=== PATIENT | male | born 1940 | race Caucasian/White ===

== ENCOUNTER 2024-07-08 10:19 | Emergency (ER) | payer OTHER, SELFPAY ==
[2024-07-08] VITALS (9 sets, daily range): BP systolic 123–172; BP diastolic 73–110
--- NOTE | 2024-07-08 10:30 | ED.GENMED ---
History of Present Illness
General
Chief Complaint: Change in Mental Status
Source: patient
Time Seen by Provider: 07/08/24 10:52
History of Present Illness
History of Present Illness:
83-year-old male who presents from [facility]. He fell on Tuesday and since then has been feeling sort of sluggish. The patient states he just is felt little bit confused. Patient denies chest pain. No headache. No shortness of breath. No
abdominal pain. No back pain. No pain is in extremities. No vision changes. Does not sense any motor weakness.
Past History
Past History
ED Past Medical History: Arrthythmia (Atrial fibrillation), CHF and HTN
Phy Exam
Physical Exam
Physical Exam:
CONSTITUTIONAL Patient alert and oriented to person, place. Well-appearing. Vital signs reviewed.
HEAD atraumatic, normocephalic.
EYES eyelids normal to inspection, Extraocular muscles intact, Conjunctiva normal, Sclera normal.
NECK normal range of motion, Trachea midline, no jugular venous distention.
RESPIRATORY CHEST No respiratory distress noted, Chest expansion equal, Bilateral breath sounds clear.
CARDIOVASCULAR irregularly irregular
ABDOMEN abdomen nontender, Bowel sounds normal. No distention.
UPPER EXTREMITY range of motion normal, Motor strength normal, no cyanosis, no edema.
LOWER EXTREMITY range of motion normal, Motor strength normal, no cyanosis, no edema.
NEURO Speech normal, No focal motor deficits, Cranial Nerves intact to screening exam.
SKIN skin warm, dry, and normal in color.
Course
Orders/Labs/Results
Orders:
Orders
07/08/24 10:28
EKG [Electrocardiogram (*1)] Urgent
Reason for Study: Fatigue / Weakness
EKG- Treatment ONCE
07/08/24 10:29
CT Head W/o Iv Contrast Urgent
Comment:
Reason For Exam: fall, change of mental since
07/08/24 10:31
Complete Blood Count/With Diff Urgent
Comprehensive Metabolic Panel Urgent
07/08/24 11:24
Prothrombin Time Urgent
07/08/24 12:01
Urinalysis Reflex To Culture Urgent
Date Specimen was Collected: 07/08/24
Time Specimen was Collected: 11:53
Abnormal Lab Results
07/08/24 07/08/24 07/08/24
10:31 11:24 12:01
RBC 3.22 L 10^6/uL
(4.70-6.10)
Hgb 10.5 L g/dL
(13.0-18.0)
Hct 32.2 L %
(39.0-52.0)
MCV 100.0 H fL
(80.0-94.0)
MCH 32.6 H pg
(27.0-31.0)
MCHC 32.6 L g/dL
(33.0-37.0)
Absolute Lymphs (auto) 0.9 L 10^3/uL
(1.2-3.4)
Absolute Monos (auto) 0.7 H 10^3/uL
(0.1-0.6)
Neutrophils % 76.0 H %
(42.2-75.2)
Lymphocytes % 11.9 L %
(20.5-51.1)
Monocytes % 9.7 H %
(1.7-9.3)
PT 43.1 H Sec
(11.4-14.6)
BUN 23 H mg/dl
(9-20)
Glucose 130 H mg/dl
(70-99)
Total Protein 6.2 L g/dl
(6.3-8.2)
Urine Ketones 1+ A
(Negative)
07/08/24 10:31
07/08/24 10:31
Vital Signs
Initial and Last Documented VS:
Initial Vital Signs
Temp Pulse Resp Pulse Ox
97.7 F 109 18 92
07/08/24 10:22 07/08/24 10:22 07/08/24 10:22 07/08/24 10:22
Last Documented Vital Signs
Temp Pulse Resp BP Pulse Ox
97.7 F 105 16 152/98 98
07/08/24 10:22 07/08/24 10:27 07/08/24 10:27 07/08/24 10:29 07/08/24 10:27
MDM/Problems Addressed
MDM/Problems Addressed:
Change mental status, recent fall, supratherapeutic INR
*Radiology
Radiology exam reviewed: radiology read reviewed
*Pulse Oximetry
Patient hypoxic: no
*EKG
Interpreted by ED Provider?: Yes
Interpretation: abnormal
Rate: normal
Rhythm: a-fib
Ischemia: non-specific ST changes
*Business Analysis Specialist Interpretation
Rate: normal
Interpretation: abnormal
Rhythm: a-fib
*Critical Care Note
Total Time (30-74mins, 75-104mins- exclusive of procedures): Not Applicable
Data Reviewed
Source: patient
Patient Management
Escalation/DeEscalation of care consider admission/obs:
Patient offers no complaints other than feeling a little bit confused but is able to answer all questions. He is moving all extremities. INR is supratherapeutic. Will advise him to hold his Coumadin for 2 days and repeat INR on Tuesday. No UTI.
No intracranial hemorrhage. No focal motor deficits. The patient is sleeping but easily aroused. I do feel he is safe for discharge back to the facility for continued monitoring and follow-up with his doctor tomorrow
ED Attending Note
-
Portions of this chart may have been created with voice recognition software.� Occasional wrong word or��sound alike� substitutions may have occurred due to the inherent limitations of voice recognition software.
Discharge Plan
Departure
Patient Disposition: Home (Routine Discharge)
Date of Disposition: 07/08/24
Time of Disposition: 13:45
Patient with high blood pressure during this ER visit?: Yes
Discharge Problem:
Supratherapeutic INR, Acute alteration in mental status
Instructions: Altered Mental Status (DC), Prothrombin time and INR (PT/INR), BLOOD PRESSURE
Prescriptions:
No Action
sennosides [senna] 8.6 mg Tablet
17.2 mg PO HS
polyethylene glycol 3350 [Miralax] 17 gram Powder In Packet
17 g PO DAILYPRN PRN (Reason: constipation)
warfarin 5 mg tablet
5 mg PO MOWEFR
warfarin 5 mg tablet
7.5 mg PO SUTUTHSA
metoprolol succinate 25 mg tablet extended release 24 hr
25 mg PO HS
fludrocortisone 0.1 mg tablet
0.1 mg PO DAILY
midodrine 10 mg tablet
10 mg PO TID
dutasteride 0.5 mg capsule
0.5 mg PO DAILY
solifenacin 10 mg tablet
10 mg PO DAILY
Referrals:
John Naik MD [Family Provider] -
Activity Restrictions/Additional Instructions:
Please see your doctor tomorrow for follow-up. Please hold your and do not take it for today or tomorrow. Have your INR rechecked on Tuesday. In addition, please hold your midodrine until further advised by your doctor. Return immediately for
fevers, vomiting, changes in mentation, weakness of any kind or any other concerns
Interventions
Interventions:
*Risk Screen - Suicide Last Done: 07/08/24 10:26
*General Assessment Last Done: 07/08/24 10:26
*Neglect/Abuse Screening Last Done: 07/08/24 10:26
*ED COVID-19 Vaccine History Last Done: 07/08/24 10:26
ED- Pulmonary Assessment Last Done: 07/08/24 10:27
ED- Neurological Assessment Last Done: 07/08/24 10:27
Discharge Date and Time
Print Language: MALAWIAN
[2024-07-08 10:40] LABS: % Basophils 0.9 % (0-2); % Eosinophils 1.2 % (0-6); % Immature Granulocytes 0.3 % (0-0.5); % Lymphocytes 11.9 % (20.5-51.1); % Monocytes 9.7 % (1.7-9.3); Absolute Basophils 0.1 10^3/uL (0-0.2); Absolute Eosinophils 0.1 10^3/uL (0-0.7); Absolute Lymphocytes 0.9 10^3/uL (1.2-3.4); Absolute Monocytes 0.7 10^3/uL (0.1-0.6); Absolute Neutrophils 5.7 10^3/uL (1.4-6.5); Hematocrit 32.2 % (39.0-52.0); Hemoglobin 10.5 g/dL (13.0-18.0); Mean Corp Hgb Conc. 32.6 g/dL (33.0-37.0); Mean Corpuscular Hgb 32.6 pg (27.0-31.0); Mean Platelet Volume 9.7 fL (7.4-10.4); Nucleated Red Blood Cells % 0 % (-); Platelet Count 228 10^3/uL (130-400); Red Blood Cell Count 3.22 10^6/uL (4.70-6.10); Red Cell Dist. Width 13.2 % (11.5-14.5); White Blood Cell Count 7.5 10^3/uL (4.8-10.8)
[2024-07-08 11:12] LABS: ALT (SGPT) 22 U/L (0-50); AST (SGOT) 28 U/L (17-59); Albumin 3.6 g/dl (3.5-5.0); Alkaline Phosphatase 123 U/L (38-126); Blood Urea Nitrogen 23 mg/dl (9-20); Calcium 8.6 mg/dl (8.4-10.2); Carbon Dioxide 27 mmol/L (22-30); Chloride 103 mmol/L (98-107); Glucose 130 mg/dl (70-99); Potassium 3.6 mmol/L (3.5-5.1); Sodium 142 mmol/L (135-145); Total Bilirubin 1.3 mg/dl (0.2-1.3); Total Protein 6.2 g/dl (6.3-8.2); eGFR > 60.00
[2024-07-08 11:41] LABS: INR 4.53; PT 43.1 Sec (11.4-14.6)
[2024-07-08 12:13] LABS: Urine Albumin Negative (Neg - Trace); Urine Bilirubin Negative (Negative); Urine Character Clear (Clear); Urine Color Yellow; Urine Glucose Negative (Negative); Urine Ketone 1+ (Negative); Urine Leukocyte Negative (Negative); Urine Nitrite Negative (Negative); Urine Occult Blood Negative (Negative); Urine Urobilinogen Negative (Neg - 1+)
--- NOTE | 2024-07-08 14:21 | CM ---
CM was consulted to assist with transfer back to [facility]. Cm left message for nursing to discuss discharge planning.
--- NOTE | 2024-07-08 15:08 | CM ---
CM reviewed medical records. Andria lives in [place] at . ALIX spoke with TANNER Rosas at . will discuss level of care options with family on Tuesday. Ralph requested referral to [facility] to assist with further nursing
services and PT. ALIX sent referral via [facility].
CM updated ED doctor and bedside RN.
== END 2024-07-08 18:21 | disposition home or self-care (01) ==
LOC: EMR 10:19
PROVIDERS: EMERGENCY PHYSICIAN Emergency Medicine; FAMILY PHYSICIAN Internal Medicine
DX: R79.1 Abnormal coagulation profile (principal); R41.82 Altered mental status, unspecified; I11.0 Hypertensive heart disease with heart failure; I50.9 Heart failure, unspecified
CPT/HCPCS: 99285; 70450; 80053; 81003; 85025; 85610; 93005

== ENCOUNTER 2024-12-05 23:05 | Inpatient (IN) | payer OTHER, SELFPAY ==
[2024-12-05] VITALS (7 sets, daily range): BP systolic 117–160; BP diastolic 66–94; BMI 20.2
--- NOTE | 2024-12-05 20:41 | ED.GENMED ---
History of Present Illness
General
Chief Complaint: Breathing Problem
Source: patient and ambulance crew
Exam Limitations: none
Time Seen by Provider: 12/05/24 20:35
History of Present Illness
History of Present Illness:
See MDM
Past History
Past History
ED Past Medical History: Arrthythmia (Atrial fibrillation), CHF, COPD, CVA and HTN
Social History
Tobacco: Non-smoker
Alcohol: None
Phy Exam
Physical Exam
Physical Exam:
See MDM
Scores
Heart Failure Risk
Heart Failure Risk Score: Yes
History of Stroke or TIA: No
History of intubation for respiratory distress: Yes
Heart rate on ED arrival >/= 110: No
SaO2 <90% on arrival on room air: Yes
HR >/=110 during 3min walk test (or too ill to perform test): Yes
ECG has acute ischemic changes: No
Urea >/=12mmol/L (BUN 33.6mg/dL): Yes
Serum CO2>/=35mmol/L: No
Troponin I or T elevated to [place] Level (0.4mg/dL): No
NT-proBNP >/=5,000ng/L (5,000pg/ml): Yes
HF Risk Score: 7
Admission Status: VERY HIGH RISK 69.8% Consider admission to hospital
Course
Orders/Labs/Results
Orders:
Orders
12/05/24 20:39
Electrocardiogram (*1) Urgent
Reason for Study: Shortness of Breath
EKG- Treatment ONCE
Dexamethasone Sod Phosphate [Decadron] 10 mg IV NOW STA
Ipratropium/Albuterol Sulfate [Duoneb] 3 ml INH R NOW STA
CR Chest Portable - 1 View Urgent
Comment:
Reason For Exam: SOB, cough
Reason Study Needs to be Portable: Unable to Transport
12/05/24 20:58
COVID-19 Antigen Urgent
Source: Nasal Swab
Complete Blood Count/With Diff Urgent
Comprehensive Metabolic Panel Urgent
NT-proBNP Urgent
Troponin I Urgent
Influenza A+B Rapid Molecular Urgent
IVONE Source: Nasal Swab
Specimen Description:
12/05/24 21:52
Piperacillin/Tazo 3.375 Gram [Zosyn] 3.375 gram in 50 ml IV NOW
12/05/24 21:53
Furosemide [Lasix] 20 mg IV NOW STA
12/05/24 22:04
Vancomycin [Vancocin] 1,500 mg 0.9% Sodium Chloride 500 ml [Nss] 500 ml IV NOW
12/05/24 22:33
CT Head W/o Iv Contrast Stat
Comment:
Reason For Exam: change in mental status
12/05/24 22:35
Admit/Transfer Patient As Directed
Co-Sign Provider:
Level of Care: Inpatient admission
Assign to:: ICU
Physician / Group: Htay
Diagnosis: Sepsis, Pneumonia
Reason for Hospitalization: IV abx, Nebs, Steroids, Oxygen
Expected length of stay greater than two midnights?: Yes
ELOS- Estimated Length of Stay in days: 3
I certify the patient meets the requirements for IP care: Yes
PRN Pain Medication Management As Directed
May give lesser potent ordered pain med per pt: Yes
preference::
Protocol:: Medication orders for pain may be administered in a
manner that supports deferring to patient preference
when the pt is:
- Requesting an ordered lesser potent pain medication.
Least to most potent pain medications are defined
as: acetaminophen < NSAID < tramadol < opioids
(morphine, oxycodone, hydromorphone).
- Requesting a lesser dose of the same medication IF
ORDERED.
- Requesting a less intrusive route of administration
if both routes are prescribed by the provider (PO <
IV).
12/05/24 22:37
Code Status As Directed
Resuscitation Status: Full Code
12/05/24 22:45
Lactic Acid Urgent
Procalcitonin Urgent
PCT Algorithmm Indication: Sepsis
Prothrombin Time Urgent
PRN Pain Medication Management As Directed
May give lesser potent ordered pain med per pt: Yes
preference::
Protocol:: Medication orders for pain may be administered in a
manner that supports deferring to patient preference
when the pt is:
- Requesting an ordered lesser potent pain medication.
Least to most potent pain medications are defined
as: acetaminophen < NSAID < tramadol < opioids
(morphine, oxycodone, hydromorphone).
- Requesting a lesser dose of the same medication IF
ORDERED.
- Requesting a less intrusive route of administration
if both routes are prescribed by the provider (PO <
IV).
12/05/24 23:09
Arterial Blood Gas Urgent
%Oxygen/Room Air: 2
Abnormal Lab Results
12/05/24 12/05/24
20:58 22:45
RBC 3.95 L 10^6/uL
(4.70-6.10)
Hgb 12.5 L g/dL
(13.0-18.0)
MCV 100.8 H fL
(80.0-94.0)
MCH 31.6 H pg
(27.0-31.0)
MCHC 31.4 L g/dL
(33.0-37.0)
Abs Immat Gran (auto) 0.1 H 10^3/uL
(0-0.05)
Absolute Neuts (auto) 7.7 H 10^3/uL
(1.4-6.5)
Absolute Lymphs (auto) 0.6 L 10^3/uL
(1.2-3.4)
Absolute Monos (auto) 1.0 H 10^3/uL
(0.1-0.6)
Neutrophils % 82.3 H %
(42.2-75.2)
Lymphocytes % 6.6 L %
(20.5-51.1)
Monocytes % 10.2 H %
(1.7-9.3)
PT 50.0 H Sec
(11.4-14.6)
INR 5.52 H*
BUN 34 H mg/dl
(9-20)
Glucose 194 H mg/dl
(70-99)
12/05/24 20:58
12/05/24 20:58
Vital Signs
Initial and Last Documented VS:
Initial Vital Signs
Temp Pulse Resp BP Pulse Ox
98.0 F 105 34 156/88 93
12/05/24 20:28 12/05/24 20:28 12/05/24 20:28 12/05/24 20:28 12/05/24 20:28
Last Documented Vital Signs
Temp Pulse Resp BP Pulse Ox
100.3 F 91 25 149/94 92
12/05/24 22:20 12/05/24 22:30 12/05/24 22:30 12/05/24 22:30 12/05/24 22:30
MDM/Problems Addressed
Differential Diagnosis Includes:
HPI and MDM Narrative:
84-year-old male presenting with worsening shortness of breath. Per EMS, he has a history of COPD and CHF. They provided DuoNeb on arrival. Patient with a wet sounding cough. He does have diffuse expiratory wheezing. I noticed +1 pitting edema
bilateral lower extremities. I question whether or not he takes water pills. Patient states 'not anymore'.
Given his history, will give another DuoNeb and will start IV steroids. Will obtain chest x-ray obtain cardiac testing in regards to EKG, troponin and BNP
Physical exam
General: Weak, frail, intermittently coughing
HEENT: protecting airway
Neck: appears supple
CV: No evidence of cyanosis. mild tachycardia
Resp: No accessory muscle use. Rhonchorous breath sounds with expiratory wheezing
Abd: Non-distended
Extremities: +1 pitting edema bilateral lower extremities with evidence of venous stasis
Neuro: alert
Psych: Normal affect
Skin: Intact
Problems Addressed including Acute and Chronic Conditions affecting care:
1. Shortness of breath and cough
Acuity: acute
Prognosis: stable
Details: Will continue DuoNebs with concern for COPD. Will obtain chest x-ray and cardiac testing with concern for pneumonia versus CHF
Updates
Chest x-ray concerning for right lower lobe pneumonia. Will start IV antibiotics however, I do appreciate increased cephalization of the chest x-ray. Patient becoming hypoxic requiring 2 L nasal cannula. this in addition to mild hypoxia and
bilateral leg pitting edema, will give low-dose IV Lasix
11:20 PM throughout his stay in the emergency department, his mental status is worsening. He is having trouble protecting his airway. Medicine admitting team did relay they are concerned that the patient may require intubation. I do agree. I
discussed case with daughter Chanda who acknowledges my concern and is comfortable with intubation
11:[address] back from CT scan, patient now awake and alert. I updated the daughter and there is no need for intubation at this time
Differential Diagnosis (but not limited to): COPD exacerbation, pneumonia, viral syndrome, CHF exacerbation
Testing considered: D-dimer
Drug therapy (if applicable): OTC meds, please see d/c instruction regarding Rx drugs
Amount and/or Complexity of Data Reviewed
Clinical info obtained from: Patient
External data reviewed: N/A
Labs I independently reviewed (but not limited to): Elevated BNP
Radiology: X-ray independently reviewed: Chest x-ray concerning for right lower lobe pneumonia
Pulse Ox: hypoxic
EKG independently reviewed: A-fib, normal axis, no STEMI
Optometry Teacher: A-fib
Critical Care: The high probability of a clinically significant, sudden or life threatening deterioration of the cardiopulmonary system(s) required my full and direct attention, intervention and personal management. The aggregate critical care time
was 33 minutes. This time is in addition to time spent performing reported procedures but includes the following:
[x] Data Review and interpretation
[x] Patient assessment and monitoring of vital signs
[x] Documentation
[x] Medication orders and management
Risk of Complication:
Social Determinants of health: Good social support
Discussed with other providers: Hospitalist
Escalation of Care includes Admit/Obs: Given the concern of pneumonia and CHF exacerbation with hypoxia, will start IV antibiotics and Lasix and admit
Occasional wrong word or 'sound a like' substitutions may have occurred due to the inherent limitations of voice recognition software. Read the chart carefully and recognize, using context, where substitutions have occurred.
*Critical Care Note
Total Time (30-74mins, 75-104mins- exclusive of procedures): 33 min
ED Attending Note
-
Portions of this chart may have been created with voice recognition software.� Occasional wrong word or��sound alike� substitutions may have occurred due to the inherent limitations of voice recognition software.
Discharge Plan
Departure
Patient Disposition: Admit
Date of Disposition: 12/05/24
Time of Disposition: 21:55
Admit to: Telemetry
Presentation/result/management discussed w/ accepting MD/DO: Hospitalist
Discharge Problem:
PNA (pneumonia), Acute CHF, Hypoxia
Interventions
Interventions:
*General Assessment Last Done: 12/05/24 20:34
*ED COVID-19 Vaccine History Last Done: 12/05/24 20:34
ED- Cardiac Assessment Last Done: 12/05/24 20:35
ED- Pulmonary Assessment Last Done: 12/05/24 20:35
[2024-12-05] MEDS: DUONEB 3 ML INH (20:48)
[2024-12-05] MEDS: DECADRON 10 MG IV (20:53)
[2024-12-05 21:07] LABS: % Basophils 0.3 % (0-2); % Eosinophils 0.1 % (0-6); % Immature Granulocytes 0.5 % (0-0.5); % Lymphocytes 6.6 % (20.5-51.1); % Monocytes 10.2 % (1.7-9.3); % Neutrophils 82.3 % (42.2-75.2); Absolute Immature Granulocytes 0.1 10^3/uL (0-0.05); Absolute Lymphocytes 0.6 10^3/uL (1.2-3.4); Absolute Neutrophils 7.7 10^3/uL (1.4-6.5); Hematocrit 39.8 % (39.0-52.0); Hemoglobin 12.5 g/dL (13.0-18.0); Mean Corp Hgb Conc. 31.4 g/dL (33.0-37.0); Mean Corpuscular Hgb 31.6 pg (27.0-31.0); Mean Corpuscular Volume 100.8 fL (80.0-94.0); Mean Platelet Volume 9.9 fL (7.4-10.4); Nucleated Red Blood Cells % 0 % (-); Platelet Count 162 10^3/uL (130-400); Red Blood Cell Count 3.95 10^6/uL (4.70-6.10); Red Cell Dist. Width 13.4 % (11.5-14.5); White Blood Cell Count 9.4 10^3/uL (4.8-10.8)
[2024-12-05 21:25] LABS: ALT (SGPT) 25 U/L (0-50); AST (SGOT) 32 U/L (17-59); Albumin 3.8 g/dl (3.5-5.0); Alkaline Phosphatase 120 U/L (38-126); Blood Urea Nitrogen 34 mg/dl (9-20); Calcium 8.6 mg/dl (8.4-10.2); Carbon Dioxide 29 mmol/L (22-30); Chloride 99 mmol/L (98-107); Estimated Creatinine Clearance 66 ml/min; Glucose 194 mg/dl (70-99); Potassium 4.2 mmol/L (3.5-5.1); Sodium 136 mmol/L (135-145); Total Bilirubin 1.1 mg/dl (0.2-1.3); Total Protein 6.7 g/dl (6.3-8.2); eGFR > 60.00
[2024-12-05 21:33] LABS: NT-proBNP 6250 pg/ml; Troponin I < 0.012 ng/ml
[2024-12-05 21:38] LABS: COVID-19 Antigen Negative (Negative)
[2024-12-05] MEDS: LASIX 20 MG IV (22:08)
[2024-12-05] MEDS: ZOSYN 50 IV (22:12)
--- NOTE | 2024-12-05 22:12 | HPS.HSE ---
Addendum entered and electronically signed by Sumit Roca MD 12/06/24 00:03:
I saw and examined the patient.
The BATTERY SERVICE TECHNICIAN or PA's note was reviewed and I agree with the note.
Comment:
84M.[facility] no prior [facility] admission HX CHF, COPD, CVA , Perm AF on Warfarin� a/w multifactorial lethargic�TME,��acute CHF type unknown. ECHO in�AM.���Not hypercapnic on ABG.�Over�therapeutic INR @ 5. NEG HCT.� No active�bleeding. Hold�warfarin.�IV
Lasix 40 daily to be continued. Empiric IV Decadron and Nebs.� Unremarkable PCT.�Hold off further ABx. NEG HCT.� Full code.�ICU. DCA�card� and��Civil Engineering Specialist consult.�
Original Note:
Family Physician
-
Family Physician: John Naik MD
Chief Complaint
-
Cough and Shortness of Breath
History of Present Illness
Patient is an 84 y/o male past medical history of CHF, A-Fib, Orthostatic Hypotension, BPH and Prior Stroke who presents with cough and shortness of breath. Initially upon arrival to the ED patient was able to answer questions, but upon my
evaluation he is obtunded. Per ED documentation patient has been experiencing increasing shortness of breath for about a week, and cough for the last few days. Initially upon arrival patient was afebrile however temperature now has risen to
100.3F.
Medical History
Past Medical History
Past Medical History: Reports Other
Additional Past Medical History:
Combined Systolic/Diastolic Heart Failure
Permanent Atrial Fibrillation
Orthostatic Hypotension
Stroke
BPH
Past Surgical History: Reports Other
Additional Past Surgical History:
Hernia Repair
Social History
Unable to obtain full social history at this time due to: Acuity
Family History
Family History: Unable to Obtain
Allergies / Home Medications
Allergies reflects when Allergies were last updated in [employer].
Home Medications with original date entered in [employer]
Allergy/Medication List:
Allergies
Allergy/AdvReac Type Severity Reaction Status Date / Time
oxybutynin Allergy Unknown Verified 07/08/24 10:24
Home Medications
dutasteride 0.5 mg capsule 0.5 mg PO DAILY 07/08/24
fludrocortisone 0.1 mg tablet 0.1 mg PO DAILY 07/08/24
metoprolol succinate 25 mg tablet,extended release 24 hr 25 mg PO HS 07/08/24
polyethylene glycol 3350 17 gram oral powder packet (Miralax) 17 g PO DAILYPRN PRN constipation 07/08/24
sennosides 8.6 mg tablet (senna) 17.2 mg PO HS 07/08/24
solifenacin 10 mg tablet 10 mg PO DAILY 07/08/24
warfarin 5 mg tablet 5 mg PO SUMOWEFR@199907/08/24
warfarin 5 mg tablet 7.5 mg PO TUTHSA@199907/08/24
dextran 70-hypromellose (PF) 0.1 %-0.3 % eye drops in a dropperette (Artificial Tears (PF)) 2 drp BOTH EYES DAILY 12/05/24
melatonin 3 mg tablet 3 mg PO HS 12/05/24
Review of Systems
-
Unable to obtain full review of systems at this time due to: Acuity
Physical Exam
Vital Signs
Vital Signs
Temp Pulse Resp BP Pulse Ox
98.0 F 95 36 119/66 93
12/05/24 20:28 12/05/24 22:08 12/05/24 20:30 12/05/24 22:08 12/05/24 20:35
Physical Exam
General: Well Developed and Other (Appears acutely ill)
HEENT: NormoCephalic, Atraumatic and Oxygen (Nasal Cannula)
Respiratory: Rhonchi (Diffuse, Left greater than right)
Cardiac: S1/S2 and Irregular Rhythm; No Tachycardia
GI: Soft and Non Tender
Genito-urinary: Clear Urine (Obtained via straight cath) and Other (Nursing noted diaper to be foul smelling)
Musculoskeletal: No Clubbing, No Cyanosis and Other (+1 pitting edema bilateral lower extremity )
Skin: Warm and Dry
Neuro: Other (Obtunded and Unable to participate in Neurologic evaluation)
Laboratory Results
-
12/05/24 20:58
12/05/24 20:58
Laboratory Results
Total Bilirubin 1.1 mg/dl (0.2-1.3) 12/05/24 20:58
AST 32 U/L (17-59) 12/05/24 20:58
ALT 25 U/L (0-50) 12/05/24 20:58
Alkaline Phosphatase 120 U/L (38-126) 12/05/24 20:58
Troponin I < 0.012 ng/ml 12/05/24 20:58
Data Reviewed
-
Diagnostic Radiology: Report Reviewed by me
Lab Data: Labs Reviewed by me
Impression/Plan
-
Acute Hypoxic Respiratory Insufficiency, suspect mostly related to acute heart failure with possible pneumonia +/- COPD exacerbation
-Continue Lasix
-Continue Decadron
-Continue DuoNeb QID and PRN
-Continue Vancomycin and Zosyn
TME, suspect multi-factorial
-Monitor mental status closely
Acute Combined Systolic/Diastolic Heart Failure (per [place] paperwork)
-Consult Cardiology
-Continue Lasix
-Check Echo
-Monitor Is&Os and Daily Weights
Permanent Atrial Fibrillation
-INR is currently supratherapeutic - Hold Coumadin
-Continue Lopressor 5mg IV PRN until able to resume Toprol XL
Orthostatic Hypotension
-Hold fludrocortisone until able to resume oral meds
-Monitor blood pressure
BPH
-Hold dutasteride
-Monitor Bladder Scans
DVT proph: Coumadin
Code Status: Full Code
[2024-12-05] MEDS: VANCOCIN 530 MG IV (22:48)
[2024-12-05 23:08] LABS: Lactic Acid 1.3 mmol/L (0.7-2.0)
[2024-12-05 23:16] LABS: B.E. 6.2 mmol/L; HCO3 31.2 mmol/L (21-28); O2 Saturation % 95.9 % (94-98); PCO2 46 mmHg (35-48); PO2 67 mmHg (83-108); pH 7.44 (7.35-7.45)
[2024-12-05 23:20] LABS: INR 5.52
[2024-12-06] VITALS (14 sets, daily range): BP systolic 123–166; BP diastolic 65–109; BMI 20.2; BMI 19.0
[2024-12-06 00:25] LABS: Urine Albumin 2+ (Neg - Trace); Urine Bilirubin Negative (Negative); Urine Character Clear (Clear); Urine Color Yellow; Urine Glucose 2+ (Negative); Urine Ketone Negative (Negative); Urine Leukocyte Negative (Negative); Urine Nitrite Negative (Negative); Urine Occult Blood Negative (Negative); Urine Specific Gravity 1.015 (<1.030); Urine Urobilinogen Negative (Neg - 1+)
[2024-12-06 00:51] LABS: Glucose - Point of Care 210 mg/dl (70-99)
[2024-12-06] MEDS: NOVOLOG FLEXPEN-LOW RESISTANCE 2 UNITS SC ×2 (01:14→05:43)
--- NOTE | 2024-12-06 01:23 | PTCARENOTE ---
Received pt from ED RN, pt was pulled over to our bed. Pt is AAOx3 , VENETIE, drowsy @ times. Afib w/ PVCs on the monitor, LE edema +1. Pt on 2L NC O2 sat 95%, lungs wheezing/coarse. Incont x2, c/c #25 placed. Right hand #20 IV placed. Vanco gtt
infusing. SCDs in place. CHG bath provided. Safe environment maintained.
[2024-12-06 02:07] LABS: Urine Bacteria Few (Negative); Urine Red Blood Cell 0-2 /HPF (0-2); Urine Urothelial Cell 0-2 /LPF (FEW)
[2024-12-06] MEDS: ZOSYN 50 IV (04:15)
--- NOTE | 2024-12-06 04:22 | PTCARENOTE ---
Systems reviewed, pt AAOx2. Pt lethargic/drowsy, arousable. AM labs provided. Safe environment maintained.
[2024-12-06 04:46] LABS: Hematocrit 35.9 % (39.0-52.0); Hemoglobin 11.5 g/dL (13.0-18.0); Mean Corpuscular Hgb 31.9 pg (27.0-31.0); Mean Corpuscular Volume 99.4 fL (80.0-94.0); Mean Platelet Volume 10.7 fL (7.4-10.4); Platelet Count 150 10^3/uL (130-400); Red Blood Cell Count 3.61 10^6/uL (4.70-6.10); Red Cell Dist. Width 13.4 % (11.5-14.5)
[2024-12-06 04:51] LABS: PT 54.2 Sec (11.4-14.6)
[2024-12-06 05:01] LABS: INR 6.14
[2024-12-06 05:05] LABS: Blood Urea Nitrogen 27 mg/dl (9-20); Calcium 7.7 mg/dl (8.4-10.2); Carbon Dioxide 31 mmol/L (22-30); Chloride 100 mmol/L (98-107); Estimated Creatinine Clearance 71 ml/min; Glucose 221 mg/dl (70-99); Magnesium 1.9 mg/dl (1.6-2.3); Potassium 3.6 mmol/L (3.5-5.1); Sodium 138 mmol/L (135-145); eGFR > 60.00
[2024-12-06 05:54] LABS: Glucose - Point of Care 208 mg/dl (70-99)
[2024-12-06] MEDS: DUONEB 3 ML INH ×4 (07:08→19:25)
--- NOTE | 2024-12-06 07:17 | CON.INTV ---
Consultation
Consultation Request
Date/Time Consultation Requested: 12/06/24
Date/Time Consultation Performed: 12/06/24
Performing Provider: Bree
Reason for Consultation: ICU
Medical History
-
History of Present Illness:
Patient is a an 84-year-old male with previous history of congestive heart failure, COPD, CVA, A-fib on Coumadin presenting to ER with lethargy, change in mental status, shortness of breath. On arrival to the ER he was notably coughing with
expiratory wheezing, with +1 pitting edema. Chest x-ray demonstrating right lower lobe consolidation with increased cephalization, he is placed on 2 L nasal cannula. Admitted for heart failure exacerbation with possible pneumonia.
Past Medical History
Past Medical History: Other
Social History
Tobacco: Non-smoker
Alcohol: None
Drug: None
Allergies / Home Medications
Allergies
Allergy/AdvReac Type Severity Reaction Status Date / Time
oxybutynin Allergy Unknown Verified 07/08/24 10:24
Home Medications
�Medication �Instructions �Recorded �Confirmed �Last Taken �Type
dutasteride 0.5 mg capsule 0.5 mg PO DAILY 07/08/24 12/05/24 Unknown History
fludrocortisone 0.1 mg tablet 0.1 mg PO DAILY 07/08/24 12/05/24 Unknown History
metoprolol succinate 25 mg 25 mg PO HS 07/08/24 12/05/24 Unknown History
tablet,extended release 24 hr
polyethylene glycol 3350 17 gram 17 g PO DAILYPRN PRN constipation 07/08/24 12/05/24 Unknown History
oral powder packet (Miralax)
sennosides 8.6 mg tablet (senna) 17.2 mg PO HS 07/08/24 12/05/24 Unknown History
solifenacin 10 mg tablet 10 mg PO DAILY 07/08/24 12/05/24 Unknown History
warfarin 5 mg tablet 5 mg PO SUMOWEFR@2000 07/08/24 12/05/24 Unknown History
warfarin 5 mg tablet 7.5 mg PO TONYA@199907/08/24 12/05/24 Unknown History
dextran 70-hypromellose (PF) 0.1 2 drp BOTH EYES DAILY 12/05/24 12/05/24 Unknown History
%-0.3 % eye drops in a dropperette
(Artificial Tears (PF))
melatonin 3 mg tablet 3 mg PO HS 12/05/24 12/05/24 Unknown History
Review of Systems
-
History Source: Patient
All other systems: Negative unless noted
Vitals / Labs / Diagnostic Testing
Vital Signs
Temp Pulse Resp BP Pulse Ox
98.1 F 82 22 141/86 92
12/06/24 03:30 12/06/24 07:12 12/06/24 07:12 12/06/24 06:16 12/06/24 07:12
Lab Data
12/06/24 04:11
12/06/24 04:11
Laboratory Results
12/05/24 12/05/24 12/06/24
22:45 23:09 04:11
PT 50.0 H 54.2 H
INR 5.52 H* 6.14 H*
pH 7.44
pCO2 46
pO2 67 L
HCO3 31.2 H
O2 Delivery Level
Microbiology
12/05/24 20:58 Nasal Swab Influenza Types A & B (SHANNAN) - Final
Negative for Influenza A & B, NAAT
Negative results must be combined with clinical observations
and patient history.
Nucleic Acid Amplification test (NAAT)performed on the
[employer] platform.
Diagnostic Testing:
Physical Exam
-
HEENT: Normocephalic, Anicteric and Moist Mucous Membranes
Cardiovascular: S1/S2 and Regular Rhythm
Respiratory: Rales and Non-Labored Respirations
GI: Soft, Non Distended and Non Tender
Neurology: Awake, Alert, Oriented and No Motor Deficits
Skin: Warm, Dry and Good Color
General: Comfortable and Other (NAD)
Assessment
-
Patient is a an 84-year-old male with previous history of congestive heart failure, COPD, CVA, A-fib on Coumadin presenting to ER with lethargy, change in mental status, shortness of breath. On arrival to the ER he was notably coughing with
expiratory wheezing, with +1 pitting edema. Chest x-ray demonstrating right lower lobe consolidation with increased cephalization, he is placed on 2 L nasal cannula. Admitted for heart failure exacerbation with possible pneumonia.
Acute CHF exacerbation
R/o PNA, PCT negative
SOB
Acute hypoxic respiratory failure, not on home O2 at baseline
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
Combined Systolic/Diastolic Heart Failure
Permanent Atrial Fibrillation
Orthostatic Hypotension
Stroke
BPH
Hernia Repair
Plan
No current signs of metabolic encephalopathy or MS changes/following commands
Denies pain at this time.
Pain/sedation: PRN
RASS goals: 0
Hemodynamically stable, not requiring pressors.
Cardiac history reviewed--CHF, hypotension
No prior ECHO in past
Monitor on telemetry
Oxygen needs: on 2L NC, baseline use of non
Prior history of lung disease: none
Supplemental O2 as indicated to maintain sats > 89%
CXR/CT reviewed indicating congestion, cephalization consistent with CHF
PCT negative, unlikely PNA
Diet advancement per team
Case Management Associate recommendations
Aspiration precautions, HOB > 30 degrees
Speech therapy eval can be considered if at elevated risk
GI prophylaxis if indicated for mechanical ventilation >48 hours, prior history of GERD, stress ulcer formation in the critically ill
Creat at baseline, no history of renal disease
Void trials
Follow urine output, critical I/Os
Replete electrolytes as needed
No signs/symptoms suspicious for infectious etiology at this time
Observe off antibiotics for now
Follow fever trend, WBC count
CBC stable, no signs of bleeding or coagulopathy.
DVT prophylaxis as assessed based on risk, including mechanical SCDs
Can transfuse if indicated for Hb <7, plt < 10
No prior h/o diabetes or thyroid disease
Monitor accuchecks PRN/SS coverage if needed
Can transfer to floors as patient has no indication for ICU. We will sign off upon transfer.
Diagnostic Data
Chest X-Ray: 12/05/24- As described, radiographic findings highly suggestive of interstitial pulmonary edema pattern with associated small bilateral pleural effusions.
More focal patchy parenchymal opacity within the left lower lung, most likely atelectasis, although pneumonia is also possible.
CT Scan:
Echo:
PFT's:
Reports and relevant images were personally reviewed.
Critical Care time 51 mins -- The patient is admitted for acute critical illness for the treatment of vital organ failure and/or prevention of further life-threatening conditions. Total care includes time spent in review of history, physical exam,
medications, hemodynamic/ventilator parameters, laboratory data, imaging and discussion with house staff, pharmacy, respiratory therapy, leather sponger, and nursing.
[2024-12-06] MEDS: DECADRON 4 MG IV (08:09)
[2024-12-06] MEDS: LASIX 40 MG IV (08:10)
--- NOTE | 2024-12-06 08:38 | PHA.VAN.IN ---
Assessment
- Assessment
Renal Function: Appears similar to baseline
Concomitant Antimicrobials: piperacillin/tazobactam
AUC Dosing Plan
- Dosing Variables
Dosing Weight (kg): 65-80
Dosing CrCl (ml/min): 71
Vd coefficient (L/kg): 0.7
- Empiric Dosing
Initial / Loading Dose: 1500mg - 12/05 22:48
Maintenance Regimen: Vanc 750mg Q12H starting at 1800
Estimated AUC (mcg*h/mL): 436 - 537
Estimated Peak (mcg*h/mL): 25.2 - 31
Estimated Trough (mcg/ml): 12.5 - 15.4
Estimated Half Life (H): 10.9
- Monitoring
No levels ordered at this time: consider levels in next few days
Pharmacokinetics Vancomycin I
- -
Patient Age: 84
Patient Sex: Male
Vancomycin Day #: 1
Indication: Pulmonary/Respiratory
Requesting Provider: Sandoval Hauser
Pertinent Antimicrobial Allergies:
no pertinent antibiotic allergies
Height / Weight:
Height 6 ft 1 in
Actual Weight 65.4 kg
IBW in k
Pertinent Past Medical History: BMI ~19
- Vital Signs / Lab Results
Temp Pulse Resp BP Pulse Ox
98.3 F 82 22 141/86 92
12/06/24 08:00 12/06/24 07:12 12/06/24 07:12 12/06/24 06:16 12/06/24 07:12
Lab Results - Hematology
12/05/24 12/06/24
20:58 04:11
WBC 9.4 7.0
Lab Results - Chemistry
12/05/24 12/06/24
20:58 04:11
BUN 34 H 27 H
Creatinine 0.8 0.7
Estimated Creat Clear 66 71
Albumin 3.8
12/05/24
22:45
Lactic Acid 1.3
Lab Results - Urine
12/06/24
00:09
Urine Nitrite (Reflex) Negative
Leukocyte Esterase Rfl Negative
Urine WBC (Reflex) 3-5
Ur Squamous Epith Cells 3-5
Urine Bacteria (Reflex) Few A
Microbiology Results
12/05/24 20:58 Influenza Types A & B (SHANNAN) - Final
Nasal Swab Negative for Influenza A & B, NAAT
Negative results must be combined with clinical observations
and patient history.
Nucleic Acid Amplification test (NAAT)performed on the
[employer] platform.
--- NOTE | 2024-12-06 09:48 | W.PN.HOSP.TC ---
Addendum entered and electronically signed by Blake Borden MD 12/06/24 15:24:
BMI: 19.0 - sec to under weight
Original Note:
Today's Communication/Plan
-
Continue with IV Lasix
DC steroids and antibiotics
Check echocardiogram
Resume home medications once cleared by speech for oral intake.
Continue to hold Coumadin and follow INR
Assessment / Plan
Assessment / Plan
Shortness of breath
Patient was sent in because of shortness of breath and was noted to be hypoxic requiring oxygen.
Difficult historian because of his cognitive status currently. Unknown if he has underlying dementia but will follow-up with family.
Based on chest x-ray findings and BMP clinical concern is acute CHF decompensation. History of combined systolic/diastolic heart failure. skilled nursing paperwork. Patient known to have A-fib which is currently rate controlled.
Clinically not acting like pneumonia-no fevers. No white count. Not much of cough. Procalcitonin was normal. Hold antibiotics.
Clinical also also not acting like COPD flare. No visible cough. No active bronchospasm. Hold further steroids.
-Continue Lasix
-Continue DuoNeb d PRN
-Check echocardiogram
-Consult cardiology
TME, suspect multi-factorial
-Monitor mental status closely
-Patient today alert and oriented.
Permanent Atrial Fibrillation
-INR is currently supratherapeutic - Hold Coumadin
-Continue Toprol XL
Orthostatic Hypotension
-Hold fludrocortisone until able to resume oral meds
-Monitor blood pressure
BPH
-Hold dutasteride
-Monitor Bladder Scans
DVT proph: Coumadin
Code Status: Full Code
DW PHOTO CHECKER
Left msg to daughter on her voicemail
Transfer to tele
Total time spent on today's encounter was 52 minutes which included time spent in counseling the patient/family regarding diagnosis and treatment plan as listed above, goals of care, and symptom management. Case was discussed with nursing staff,
specialists, and care coordinators/case management. All labs and imaging personally reviewed by me. Remainder the time spent in detailed review of previous records, lab data, imaging, and other medical provider documentation.
Anticipated Discharge: > 48 hours
Subjective/Interval History
-
Date of Service: December 06, 2024
Patient is awake and alert and oriented to self only. Is very slow to respond but gets appropriate words out. He does not know where he is. He took a while for him to tell me his 's name.
He can tell me his current living situation either.
He denies shortness of breath at rest. He thinks he has some cough. Denies any chest pain or abdominal pain. No nausea vomiting.
Objective Data
-
Labs:
Laboratory Results
12/05/24 12/05/24 12/06/24
22:45 23:09 04:11
WBC 7.0
Hgb 11.5 L
Hct 35.9 L
Plt Count 150
PT 50.0 H 54.2 H
INR 5.52 H* 6.14 H*
HCO3 31.2 H
Sodium 138
Potassium 3.6
Chloride 100
Carbon Dioxide 31 H
BUN 27 H
Creatinine 0.7
Glucose 221 H
Calcium 7.7 L
Vital Signs:
Vital Signs
Temp Pulse Resp BP Pulse Ox
98.3 F 89 23 166/87 96
12/06/24 08:00 12/06/24 09:00 12/06/24 09:00 12/06/24 09:00 12/06/24 09:00
I&O
12/05/24 12/06/24 12/07/24
06:59 06:59 06:59
Intake Total 100 / 100
Output Total 850 / 850
Balance -750 / -750
Review of Systems
-
Unable to obtain full review of systems at this time due to: Other (Cognitive impairment)
Physical Exam
-
General: Comfortable
Respiratory: Crackles (Camp in the left lower lobe and few on the right base) and Non Labored Respirations; Negative Wheezes or Accessory Resp Muscle Use
Cardiac: S1/S2 and Irregular Rhythm; Negative Tachycardic
GI: Soft and Nontender
Neuro: Awake, Alert and No Motor Deficits; Negative Slurred Speech or Facial Droop
Psych: Calm and Confused; Negative Agitated
Data Reviewed
-
Labs: Labs Reviewed by me
--- NOTE | 2024-12-06 09:55 | CM ---
CM following re: discharge planning.
Reviewed pt's chart, met with pt and spoke to pt's daughter Chanda over the phone.
Pt is an 84 year old male, admitted with primary dx of Acute Hypoxic Respiratory Insufficiency, suspect mostly related to acute heart failure with possible pneumonia +/- COPD exacerbation.
Per daughter, pt has been living with his spouse at [facility]/personal care since May 2024, went to [facility] in April of 2024, has 2 supportive children. per daughter pt ambulates with a walker, uses a wheelchair for a long
distance: going to a dining room. Pt's daughter stated that pt has been falling in the past week and daughter feels that from emotional standpoint will be the best if pt returns back to [facility] to be with his spouse and at the same time pt's
daughter stated she would like the best and a safest options at discharge. Per daughter, pt is known to [facility] and pt's has a physical therapist almost daily.
CM spoke to [facility] TANNER Zavala [phone] and she stated that in order for pt to be accepted back, pt must be at his baseline: walking independently with a walker and using a wheelchair for a long distance.
PT and OT will evaluate the pt to determine a level of care at discharge.
PCP: John Naik.
Pharmacy: [facility]
D/C plan: return back to [facility] with [facility] vs SNF if recommended by PT and OT
CM will follow with discharge plan updates as hospitalization progresses
--- NOTE | 2024-12-06 10:24 | PTCARENOTE ---
patient written to telemetry status.
[2024-12-06 12:01] LABS: Glucose - Point of Care 216 mg/dl (70-99)
--- NOTE | 2024-12-06 12:25 | PTOTSP ---
Speech Language Pathology
Pt seen for clinical bedside swallow evaluation. Cognitive issues noted this AM by RN, so unsure if accurate, but pt reported he coughs with P.O. intake (can be either solids or liquids) once every 4-5 days. He thinks he may have had PNA twice in
the past, but does not believe he was hospitalized.
P.O. trials of puree, regular solids, and thin liquids via cup and straw provided. Adequate mastication, bolus formation, and A-P transit noted with no oral residue. Delayed cough noted with thin liquids via straw. No coughing noted with thin
liquids via single cup sips.
Recommend:
(1) Regular solids/thin liquids
(2) Aspiration precautions: sit upright, single cup sips (no straws), slow rate
(3) Meds whole in puree
(4) Will consider VSE if coughing specifically with P.O. intake noted
(5) TERMINAL WORKER to continue to follow
[2024-12-06] MEDS: NOVOLOG FLEXPEN-LOW RESISTANCE SC (13:11)
[2024-12-06] MEDS: PROSCAR 5 MG PO (13:55)
[2024-12-06] MEDS: FLORINEF 0.1 MG PO (13:55)
--- NOTE | 2024-12-06 14:39 | PTCARENOTE ---
Patient cleared by speech. ordered lunch for patient. aspiration precautions followed.
--- NOTE | 2024-12-06 14:42 | PN.CDI ---
CDI
- -
CDI:
Physician Documentation Request
Admit Date: 12/05/24 23:05
Dear Doctor Michi,
Please review the following and provide your response in the progress notes.
Clinical Indicators:
Height: 6' 1'
Weight: 144 lbs
BMI: 19.0
ER Physician Documentation: 'General: Weak, frail'
If possible, please provide an associated diagnosis related to the abnormal BMI, such as:
Cachectic
Underweight
BMI is not significant
Other
BMI < or = to 19.9
Underweight
Weight Loss
Cachectic
Anorexia
Use of terms such as suspected, likely, concern for, or probable (associated with a specific diagnosis that is being evaluated, monitored, or treated as if it exists) are acceptable and can be coded in the inpatient setting, when documented at the
time of discharge.
Thank you,
Bre Stratton RN, BSN
CDI Specialist
Available via [place] text
Please use your independent medical judgment in providing your response.
--- NOTE | 2024-12-06 17:34 | CON.CAR ---
Addendum entered and electronically signed by Francis Whiteside MD 12/06/24 17:53:
I saw and examined the patient.
The STRIP CLEANER's note was reviewed and I agree with the note.
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 Patient is forgetful and is a poor historian; he is unable to tell
us why he is here.
CXR showed interstitial edema concerning for HF and per notes had worsening SOB. He does not appear to overtly volume overloaded on exam and has RLL rales and rhonchi.
- agree with IV diuresis likely transition to PO after tomorrow AM dose
- follow tele may increase BB
Original Note:
Consultation
Consultation Request
Date/Time Consultation Requested: 12/06/24 0900
Date/Time Consultation Performed: 12/06/24 1730
Requesting Provider: Melyssa WAGONER
Performing Provider: Bertha ALEJANDRE for Dr. Whiteside
Reason for Consultation: CHF
Medical History
-
History of Present Illness:
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 Patient is forgetful, so poor historian. Per chart, he has had SOB and cough.
Temp in ER 100.3. He is being treated for PNA and CHF, as well as possible COPD. We are consulted for CHF. He is in no distress at the time of my assessment.
Past Medical History
Past Medical History: Arrhythmias, CHF, CVA and Other (as above)
Social History
Living: Assisted Living
Family History
Family History: Reviewed & Not Pertinent
Allergies / Home Medications
Allergy/AdvReac Type Severity Reaction Status Date / Time
oxybutynin Allergy Unknown Verified 07/08/24 10:24
�Medication �Instructions �Recorded �Confirmed �Type
dutasteride 0.5 mg capsule 0.5 mg PO DAILY 07/08/24 12/05/24 History
fludrocortisone 0.1 mg tablet 0.1 mg PO DAILY 07/08/24 12/05/24 History
metoprolol succinate 25 mg 25 mg PO HS 07/08/24 12/05/24 History
tablet,extended release 24 hr
polyethylene glycol 3350 17 gram 17 g PO DAILYPRN PRN constipation 07/08/24 12/05/24 History
oral powder packet (Miralax)
sennosides 8.6 mg tablet (senna) 17.2 mg PO HS 07/08/24 12/05/24 History
solifenacin 10 mg tablet 10 mg PO DAILY 07/08/24 12/05/24 History
warfarin 5 mg tablet 5 mg PO SUMOWEFR@199907/08/24 12/05/24 History
warfarin 5 mg tablet 7.5 mg PO TUTHSA@199907/08/24 12/05/24 History
dextran 70-hypromellose (PF) 0.1 2 drp BOTH EYES DAILY 12/05/24 12/05/24 History
%-0.3 % eye drops in a dropperette
(Artificial Tears (PF))
melatonin 3 mg tablet 3 mg PO HS 12/05/24 12/05/24 History
Review of Systems
-
History Source: Patient (forgetful) and Other (chart)
Respiratory: Cough and Trouble Breathing
Physical Exam
Vital Signs
Temp Pulse Resp BP Pulse Ox
98.0 F 90 29 140/96 94
12/06/24 15:19 12/06/24 15:12 12/06/24 15:12 12/06/24 13:00 12/06/24 15:12
Lab Results
12/06/24 04:11
12/06/24 04:11
Troponin I < 0.012 ng/ml 12/05/24 20:58
Hah-M-Iirfsuejxxk Pept 6250 pg/ml 12/05/24 20:58
Physical Exam
General: Well Developed, Well Nourished and No Apparent Distress
HEENT: Normocephalic and Anicteric
Respiratory: Rhonchi (right base) and Other (on O2 by NC)
Cardiac: Irregular Rhythm
Musculoskeletal: No Edema
Skin: Warm and Dry
Neuro: Awake, Alert and Other (forgetful)
Psych: Calm
Impression / Plan
-
Zslvq-bj-zmblthz HFpEF:
-unknown CHF history, but it is noted in chart. Not on OP diuretic.
-echo here with normal EF as below
-agree with IV diuresis, but he does not look like he will need too much more. This requires intensive monitoring.
Possible PNA:
-he has rhonchi to exam
-has received antibiotics, now stopped
Permanent AFIB:
-continue metoprolol and monitor rates
-on warfarin as OP, but INR high here- monitor closely
Orthostatic hypotension:
-on florinef as OP
Data Reviewed
-
EKG: Tracing Personally Visualized and interpreted
Radiology: Report Reviewed by me (CXR: As described, radiographic findings highly suggestive of interstitial pulmonary edema pattern with associated small bilateral pleural effusions. More focal patchy parenchymal opacity within the left lower
lung, most likely atelectasis, although pneumonia is also possible.)
Medical Tests (Nuc Med, Echo etc): Report Reviewed by me (Echo 12/06/24: Mild concentric left ventricular hypertrophy. EF 55-60%. Severely dilated right atrium. Small pericardial effusion. Pleural effusion noted. Mildly dilated aortic root with Sinus
of Valsalva measuring 3.9 cm. The IVC is severely dilated.)
Labs: Labs Reviewed by me
--- NOTE | 2024-12-06 18:48 | PTCARENOTE ---
moved patient to room 418 on telemetry. report given to Amee HART. Non par tray ordered.
[2024-12-06 19:09] LABS: Glucose - Point of Care 232 mg/dl (70-99)
[2024-12-06] MEDS: NOVOLOG FLEXPEN-LOW RESISTANCE 300 UNITS SC (19:09)
[2024-12-06] MEDS: TOPROL XL 25 MG PO (22:23)
[2024-12-06] MEDS: MELATONIN 3 MG PO (22:23)
[2024-12-06] MEDS: SENOKOT 17.2 MG PO (22:23)
[2024-12-07] VITALS (7 sets, daily range): BP systolic 76–141; BP diastolic 44–93; PULSE 92–113; BMI 18.4
[2024-12-07 00:14] LABS: Glucose - Point of Care 165 mg/dl (70-99)
[2024-12-07] MEDS: NOVOLOG FLEXPEN-LOW RESISTANCE 1 UNITS SC ×3 (00:17→22:59)
--- NOTE | 2024-12-07 03:59 | PTCARENOTE ---
Addendum entered by Ace Cardoza RN 12/07/24 04:01:
Accuchecks now ordered AC&HS.
Original Note:
Pt is now eating a cholesterol-lowering diet; accuchecks still ordered q6h. DELFINA Claudio notified, novolog sliding scale switched to AC. A1c ordered to be checked in the AM.
[2024-12-07 07:16] LABS: Glucose - Point of Care 138 mg/dl (70-99)
[2024-12-07] MEDS: NOVOLOG FLEXPEN-LOW RESISTANCE SC (07:27)
[2024-12-07] MEDS: DUONEB 3 ML INH ×4 (07:28→20:31)
[2024-12-07 07:59] LABS: PT 58.4 Sec (11.4-14.6)
[2024-12-07 08:04] LABS: INR 6.91
[2024-12-07 08:05] LABS: Hematocrit 39.2 % (39.0-52.0); Hemoglobin 12.5 g/dL (13.0-18.0); Mean Corp Hgb Conc. 31.9 g/dL (33.0-37.0); Mean Corpuscular Hgb 32.1 pg (27.0-31.0); Mean Corpuscular Volume 100.8 fL (80.0-94.0); Mean Platelet Volume 10.4 fL (7.4-10.4); Platelet Count 195 10^3/uL (130-400); Red Blood Cell Count 3.89 10^6/uL (4.70-6.10); Red Cell Dist. Width 13.2 % (11.5-14.5); White Blood Cell Count 9.8 10^3/uL (4.8-10.8)
[2024-12-07] MEDS: FLORINEF 0.1 MG PO (08:05)
[2024-12-07] MEDS: PROSCAR 5 MG PO (08:06)
[2024-12-07] MEDS: REFRESH EYE DROPS (PF) 2 DROPS BOTH EYES (08:06)
[2024-12-07] MEDS: LASIX 40 MG IV (08:06)
[2024-12-07] MEDS: DETROL LA 4 MG PO (08:06)
[2024-12-07 08:20] LABS: Blood Urea Nitrogen 33 mg/dl (9-20); Calcium 8.9 mg/dl (8.4-10.2); Carbon Dioxide 38 mmol/L (22-30); Chloride 95 mmol/L (98-107); Estimated Creatinine Clearance 60 ml/min; Glucose 145 mg/dl (70-99); Potassium 3.2 mmol/L (3.5-5.1); Sodium 140 mmol/L (135-145); eGFR > 60.00
--- NOTE | 2024-12-07 08:55 | W.PN.CD ---
Today's Communication / Plan
-
stop IV diuresis
Increase metop to 50
Impression / Plan
-
Jwtot-la-jdaoxcq HFpEF:
-unknown CHF history, but it is noted in chart. Not on OP diuretic.
-echo here with normal EF as below
-Stop IV diuresis
Possible PNA:
-he has rhonchi to exam
-has received antibiotics, now stopped
Permanent AFIB: uncontrolled
-Increase metop to 50
-on warfarin as OP, but INR high here- monitor closely
Orthostatic hypotension:
-on florinef as OP
Subjective: Confused this AM
Physical Exam
Vital Signs/Labs
Vital Signs
Temp Pulse Resp BP Pulse Ox
98.3 F 103 18 146/89 96
12/07/24 07:30 12/07/24 08:06 12/07/24 07:31 12/07/24 08:06 12/07/24 07:31
12/06/24 12/07/24 12/08/24
06:59 06:59 06:59
Actual Weight 144 lb 2.917 oz 139 lb 6.4 oz
12/07/24 07:06
12/07/24 07:06
PT 58.4 Sec (11.4-14.6) H 12/07/24 07:06
INR 6.91 H* 12/07/24 07:06
Magnesium 1.9 mg/dl (1.6-2.3) 12/06/24 04:11
12/05/24
20:58
Fjm-M-Rzaotpebsgr Pept 6250
LAB Results
12/05/24
20:58
Troponin I < 0.012
Physical Exam
Constitutional: No acute distress and Confusion
EENT: Anicteric
Cardiovascular: Pedal edema is absent and Rhythm/rate is irregular
Respiratory: Respiratory effort normal and Rhonchi Present
GI: Soft
Neuro/Psych: Oriented (oriented to person )
Data Reviewed
-
Date of Service: December 07, 2024
EKG: Tracing Personally Visualized and interpreted (af)
Echo: Tracing Personally Visualized and interpreted
Labs: Labs Reviewed by me
[2024-12-07 10:16] LABS: Glycohemoglobin (HgbA1c) 6.7 % (4.0-5.6)
--- NOTE | 2024-12-07 11:29 | W.PN.HOSP.TC ---
Today's Communication/Plan
-
Continue with IV Lasix
Reintroduce his fludrocortisone
Can continue with PT treatments
Continue to monitor INR.
Assessment / Plan
Assessment / Plan
Shortness of breath
Patient was sent in because of shortness of breath and was noted to be hypoxic requiring oxygen.
Based on chest x-ray findings and BNP clinical concern is acute CHF decompensation. 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 Patient known to have A-fib .
Clinically not acting like pneumonia-no fevers. No white count. Not much of cough. Procalcitonin was normal. Hold antibiotics.
Clinical also also not acting like COPD flare. No visible cough. No active bronchospasm. Hold further steroids.
-Continue Lasix.Improving wt and seems to be off of O2 this am
-Continue DuoNeb d PRN
- echocardiogram 12/06 shows a EF of 55 to 60%.
-Consult cardiology
TME, suspect multi-factorial
-Monitor mental status closely . Family feels he is at his baseline cognitively.
-Patient is alert and oriented.
Permanent Atrial Fibrillation
RVR this am
-INR is currently supratherapeutic - Hold Coumadin
-Continue Toprol XL - dose increased
Orthostatic Hypotension
-Resume fludrocortisone
-Monitor blood pressure
BPH
-Resume dutasteride
-Monitor Bladder Scans
DVT proph: Coumadin
Code Status: Full Code
DW daughter on phone and updated the clinicals ,dx,tx
DW Cards this am
Total time spent on today's encounter was 52 minutes which included time spent in counseling the patient/family regarding diagnosis and treatment plan as listed above, goals of care, and symptom management. Case was discussed with nursing staff,
specialists, and care coordinators/case management. All labs and imaging personally reviewed by me. Remainder the time spent in detailed review of previous records, lab data, imaging, and other medical provider documentation.
Anticipated Discharge: 24 - 48 hours
Subjective/Interval History
-
Date of Service: December 07, 2024
Patient feels improved. Denies shortness of breath at rest. Is off of oxygen this morning according to respiratory therapist. Denies any chest pain.
No nausea or vomiting.
Interval history-discussed with daughter today about his prehospital health situation-lives at assisted living along with her mother. Over the last 7 months there is some decline in general which she thinks may be aging. He was also having falls
recurrently. They noted orthostatic hypotension as an issue in the last 7 months and is on medication.
Objective Data
-
Labs:
Laboratory Results
12/07/24
07:06
WBC 9.8
Hgb 12.5 L
Hct 39.2
Plt Count 195 D
PT 58.4 H
INR 6.91 H*
Sodium 140
Potassium 3.2 L
Chloride 95 L
Carbon Dioxide 38 H
BUN 33 H
Creatinine 0.8
Glucose 145 H
Calcium 8.9
Vital Signs:
Vital Signs
Temp Pulse Resp BP Pulse Ox
98.3 F 90 18 146/89 95
12/07/24 07:30 12/07/24 10:47 12/07/24 10:47 12/07/24 08:06 12/07/24 10:47
I&O
12/06/24 12/07/24 12/08/24
06:59 06:59 06:59
Intake Total 100 / 100 240 / 240
Output Total 850 / 850 1949 / 1949 350 / 350
Balance -750 / -750 -1950 / -1950 -110 / -110
Review of Systems
-
Constitutional: Denies Fever
Respiratory: Denies Cough
Abdomen/GI: Denies Abdominal Pain, Nausea or Vomiting
Neuro: Denies Dizzy
Physical Exam
-
General: No Apparent Distress
HEENT: Moist Mucous Membranes
Respiratory: Crackles (bibasal) and Non Labored Respirations; Negative Accessory Resp Muscle Use
Cardiac: S1/S2, Irregular Rhythm and Tachycardic
GI: Soft and Nontender
Musculoskeletal: No Edema
Neuro: AO x 3
Psych: Calm
Data Reviewed
-
Labs: Labs Reviewed by me
[2024-12-07 12:40] LABS: Glucose - Point of Care 170 mg/dl (70-99)
--- NOTE | 2024-12-07 15:10 | CM ---
CM reviewed chart, placed call to daughter, Chanda, to discuss PT recommendations of SNF. Daughter inquiring if patient would be able to return to [place] with more therapy at facility rather than SNF, concerned for patient being away from who
resides at facility as well. Patient currently max assist x two, spoke with nurse Nessa at [facility], agree patient needs rehab and Nessa will call daughter to discuss. Patient was at [facility] in past, daughter reports patient did do well
there, will place referral in [facility]. CM will continue to follow for all discharge planning needs.
Plan; SNF referral placed, will need insurance auth
[2024-12-07 17:22] LABS: Glucose - Point of Care 229 mg/dl (70-99)
[2024-12-07] MEDS: NOVOLOG FLEXPEN-LOW RESISTANCE 2 UNITS SC (18:07)
[2024-12-07 21:22] LABS: Glucose - Point of Care 164 mg/dl (70-99)
[2024-12-07] MEDS: TOPROL XL 50 MG PO (22:58)
[2024-12-07] MEDS: SENOKOT 17.2 MG PO (22:58)
[2024-12-07] MEDS: MELATONIN 3 MG PO (22:59)
[2024-12-08 03:53] VITALS: BP 162/108
[2024-12-08 06:00] VITALS: BMI 17.5
[2024-12-08 07:15] VITALS: BP 137/91
[2024-12-08] MEDS: DUONEB 3 ML INH ×2 (07:26→11:38)
[2024-12-08 07:57] LABS: Glucose - Point of Care 140 mg/dl (70-99)
[2024-12-08] MEDS: NOVOLOG FLEXPEN-LOW RESISTANCE SC (08:11)
[2024-12-08] MEDS: FLORINEF 0.1 MG PO (08:56)
[2024-12-08] MEDS: REFRESH EYE DROPS (PF) 2 DROPS BOTH EYES (08:56)
[2024-12-08] MEDS: PROSCAR 5 MG PO (08:56)
[2024-12-08] MEDS: DETROL LA 4 MG PO (08:56)
[2024-12-08 09:58] LABS: INR 4.77; PT 44.1 Sec (11.4-14.6)
--- NOTE | 2024-12-08 10:14 | W.PN.CD ---
Today's Communication / Plan
-
Lasix 40 mg PRN for weight gain
Cont Metop 50
We will sign off he should follow up with his ice cutter in 2-4 weeks.
Impression / Plan
-
Lzygo-kb-erucgnd HFpEF:
-unknown CHF history, but it is noted in chart. Not on OP diuretic.
-echo here with normal EF as below
-Stop IV diuresis, Lasix 40 mg for 3-5 lb weight gain in a day or a week
Possible PNA:
-he has rhonchi to exam
-has received antibiotics, now stopped
Permanent AFIB: improved
-Cont metop to 50
-on warfarin as OP, but INR high here- monitor closely
Orthostatic hypotension:
-on florinef as OP
Subjective: Remains confused
Physical Exam
Vital Signs/Labs
Vital Signs
Temp Pulse Resp BP Pulse Ox
98.3 F 60 18 137/91 93
12/08/24 07:15 12/08/24 07:28 12/08/24 07:28 12/08/24 07:15 12/08/24 07:28
12/07/24 12/08/24 12/09/24
06:59 06:59 06:59
Actual Weight 139 lb 6.4 oz 132 lb 6 oz
12/07/24 07:06
PT 44.1 Sec (11.4-14.6) H 12/08/24 09:31
INR 4.77 D 12/08/24 09:31
Magnesium 1.9 mg/dl (1.6-2.3) 12/06/24 04:11
12/05/24
20:58
Vig-E-Jklsphtiwzg Pept 6250
LAB Results
12/05/24
20:58
Troponin I < 0.012
Physical Exam
Constitutional: No acute distress and Comfortable
EENT: Anicteric
Cardiovascular: Pedal edema is absent and Rhythm/rate is irregular
Respiratory: Respiratory effort normal
GI: Soft
Neuro/Psych: Alert (to name unsure of year or place)
Data Reviewed
-
Date of Service: December 08, 2024
EKG: Tracing Personally Visualized and interpreted (af)
Echo: Report Reviewed by me
Labs: Labs Reviewed by me
[2024-12-08 10:27] LABS: Blood Urea Nitrogen 33 mg/dl (9-20); Calcium 8.6 mg/dl (8.4-10.2); Chloride 95 mmol/L (98-107); Estimated Creatinine Clearance 57 ml/min; Glucose 142 mg/dl (70-99); Potassium 2.9 mmol/L (3.5-5.1); Sodium 141 mmol/L (135-145); eGFR > 60.00
[2024-12-08] MEDS: LASIX IV (10:50)
[2024-12-08 11:26] VITALS: BP 106/63
[2024-12-08 11:35] LABS: Glucose - Point of Care 323 mg/dl (70-99)
[2024-12-08 12:03] LABS: Glucose - Point of Care 307 mg/dl (70-99)
[2024-12-08 12:14] LABS: Carbon Dioxide 36 mmol/L (22-30)
[2024-12-08] MEDS: NOVOLOG FLEXPEN-LOW RESISTANCE 4 UNITS SC (12:17)
--- NOTE | 2024-12-08 13:30 | W.PN.HOSP.TC ---
Today's Communication/Plan
-
DC to rehab in a.m.
Assessment / Plan
Assessment / Plan
Shortness of breath
Patient was sent in because of shortness of breath and was noted to be hypoxic requiring oxygen.
Based on chest x-ray findings and BNP clinical concern is acute CHF decompensation. History of combined systolic/diastolic heart failure from [facility] paperwork. Patient known to have A-fib .
Clinically not acting like pneumonia-no fevers. No white count. Not much of cough. Procalcitonin was normal. Hold antibiotics.
Clinical also also not acting like COPD flare. No visible cough. No active bronchospasm. Hold further steroids.
-Significant improvement in weight and currently off of oxygen. Lasix schedule is on hold and use as needed for weight gain.
-Continue DuoNeb d PRN
- echocardiogram 12/06 shows a EF of 55 to 60%.
-Appreciate cardiology
Hypokalemia-replete
TME, suspect multi-factorial
-Monitor mental status closely . Family feels he is at his baseline cognitively.
-Patient is alert and oriented.
Permanent Atrial Fibrillation
RVR this am
-INR is currently supratherapeutic - Hold Coumadin
-Continue Toprol XL - dose increased
Orthostatic Hypotension
-Resumed fludrocortisone
-Monitor blood pressure
BPH
-Resumed dutasteride
-Monitor Bladder Scans
DVT proph: Coumadin
Code Status: Full Code
PT recommends rehab
DC planning
Anticipated Discharge: Within 24 hours
Subjective/Interval History
-
Date of Service: December 08, 2024
Denies shortness of breath or chest pain today.
He is alert and oriented to place and person.
Feels weak being in the bed.
Wishes to Return to his assisted living facility. lives as well in the same facility.
Objective Data
-
Labs:
Laboratory Results
12/08/24
09:31
PT 44.1 H
INR 4.77 D
Sodium 141
Potassium 2.9 L
Chloride 95 L
Carbon Dioxide 36 H
BUN 33 H
Creatinine 0.8
Glucose 142 H
Calcium 8.6
Vital Signs:
Vital Signs
Temp Pulse Resp BP Pulse Ox
98.5 F 64 18 106/63 96
12/08/24 11:26 12/08/24 11:40 12/08/24 11:40 12/08/24 11:26 12/08/24 11:40
I&O
12/07/24 12/08/24 12/09/24
06:59 06:59 06:59
Intake Total 960 / 960
Output Total 1949 650 / 650
Balance -1949 310 / 310
Review of Systems
-
Constitutional: Denies Fever
Respiratory: Denies Trouble Breathing
Cardiac: Denies Chest Pain or Palpitations
Abdomen/GI: Denies Abdominal Pain or Nausea
Neuro: Denies Dizzy
Physical Exam
-
General: Comfortable
Respiratory: Crackles (few basal crackles) and Non Labored Respirations; Negative Wheezes or Accessory Resp Muscle Use
Cardiac: Regular Rhythm and S1/S2
GI: Soft and Nontender
Musculoskeletal: No Edema
Neuro: Awake, Alert, Oriented (not to day month or year) and No Motor Deficits; Negative Tremors
Psych: Calm and Confused; Negative Agitated
Data Reviewed
-
Labs: Labs Reviewed by me
[2024-12-08] MEDS: KLOR-CON 40 MEQ PO ×2 (14:09→18:04)
--- NOTE | 2024-12-08 14:43 | CM ---
Per Attending, patient should be stable for discharge to SNF tomorrow
[facility] unable to accept patient; no beds available
CM spoke with patient's daughter via phone; she was agreeable to expanding SNF search; alternative options provided; preferences are [facility], [facility], and [facility]
Plan: Discharge to SNF pending bed availability and AUTH approval
[2024-12-08 15:17] VITALS: BP 91/55
[2024-12-08 16:34] LABS: Glucose - Point of Care 150 mg/dl (70-99)
[2024-12-08] MEDS: NOVOLOG FLEXPEN-LOW RESISTANCE 1 UNITS SC ×2 (18:04→22:26)
[2024-12-08 19:52] VITALS: BP 102/60
[2024-12-08] MEDS: LOPRESSOR 5 MG IV (19:55)
[2024-12-08 21:29] VITALS: BP 122/71
[2024-12-08] MEDS: TOPROL XL 50 MG PO (21:30)
[2024-12-08] MEDS: SENOKOT 17.2 MG PO (21:30)
[2024-12-08] MEDS: MELATONIN 3 MG PO (21:31)
[2024-12-08 21:43] LABS: Glucose - Point of Care 182 mg/dl (70-99)
[2024-12-09] VITALS (8 sets, daily range): BP systolic 96–154; BP diastolic 58–98; BMI 17.8
[2024-12-09 07:29] LABS: INR 3.81; PT 37.2 Sec (11.4-14.6)
[2024-12-09 07:54] LABS: Blood Urea Nitrogen 31 mg/dl (9-20); Calcium 8.4 mg/dl (8.4-10.2); Carbon Dioxide 39 mmol/L (22-30); Chloride 96 mmol/L (98-107); Estimated Creatinine Clearance 67 ml/min; Glucose 143 mg/dl (70-99); Potassium 3.8 mmol/L (3.5-5.1); Sodium 139 mmol/L (135-145); eGFR > 60.00
[2024-12-09 07:55] LABS: Glucose - Point of Care 134 mg/dl (70-99)
[2024-12-09] MEDS: NOVOLOG FLEXPEN-LOW RESISTANCE SC (08:40)
[2024-12-09] MEDS: DETROL LA 4 MG PO (08:47)
[2024-12-09] MEDS: FLORINEF 0.1 MG PO (08:47)
[2024-12-09] MEDS: REFRESH EYE DROPS (PF) 2 DROPS BOTH EYES (08:47)
[2024-12-09] MEDS: PROSCAR 5 MG PO (08:47)
--- NOTE | 2024-12-09 11:00 | W.PN.HOSP.TC ---
Today's Communication/Plan
-
DC
Assessment / Plan
Assessment / Plan
Shortness of breath
Patient was sent in because of shortness of breath and was noted to be hypoxic requiring oxygen.
Based on chest x-ray findings and BNP clinical concern is acute CHF decompensation. 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 Patient known to have A-fib .
Clinically not acting like pneumonia-no fevers. No white count. Not much of cough. Procalcitonin was normal. Hold antibiotics.
Clinical also also not acting like COPD flare. No visible cough. No active bronchospasm. Hold further steroids.
-Significant improvement in weight and currently off of oxygen. Lasix schedule is on hold and use as needed for weight gain.
-Continue DuoNeb d PRN
- echocardiogram 12/06 shows a EF of 55 to 60%.
-Appreciate cardiology
TME, suspect multi-factorial
-Monitor mental status closely . Family feels he is at his baseline cognitively.
-Patient is alert and oriented.
Permanent Atrial Fibrillation
Rate controlled
-INR is currently supratherapeutic - Hold Coumadin
-Continue Toprol XL - dose increased on this admission
Orthostatic Hypotension
-Resumed fludrocortisone
-Still orthostatic as of yesterday. Could be because of diuretics and weight loss. Diuretics are now on hold. If the weight remains stable as well as orthostasis consider addition of midodrine
-Monitor blood pressure
BPH
-Resumed dutasteride
-Monitor Bladder Scans
DVT proph: Coumadin
Code Status: Full Code
PT recommends rehab
Medically stable for DC
Anticipated Discharge: Within 24 hours
Subjective/Interval History
-
Date of Service: December 09, 2024
Denies any shortness of breath or chest pain today.
Feels weak and I think is because he is not doing much in the hospital.
Denies any nausea vomiting.
No lightheadedness.
Objective Data
-
Labs:
Laboratory Results
12/09/24
06:17
PT 37.2 H
INR 3.81
Sodium 139
Potassium 3.8 D
Chloride 96 L
Carbon Dioxide 39 H
BUN 31 H
Creatinine 0.7
Glucose 143 H
Calcium 8.4
Vital Signs:
Vital Signs
Temp Pulse Resp BP Pulse Ox
98.0 F 82 15 149/98 97
12/09/24 07:00 12/09/24 07:00 12/09/24 07:00 12/09/24 07:00 12/09/24 07:00
I&O
12/08/24 12/09/24 12/10/24
06:59 06:59 06:59
Intake Total 960 / 960
Output Total 650 / 650
Balance 310 / 310
Physical Exam
-
General: Comfortable
Respiratory: Clear to Auscultation and Non Labored Respirations; Negative Accessory Resp Muscle Use
Cardiac: Regular Rhythm, S1/S2 and Tachycardic
GI: Soft
Musculoskeletal: No Edema
Neuro: Awake, Alert and Oriented
Psych: Calm
Data Reviewed
-
Labs: Labs Reviewed by me
[2024-12-09 11:39] LABS: Glucose - Point of Care 176 mg/dl (70-99)
[2024-12-09] MEDS: NOVOLOG FLEXPEN-LOW RESISTANCE 1 UNITS SC (12:58)
--- NOTE | 2024-12-09 15:56 | CM ---
Chart reviewed: Anticipated Discharge: Within 24 hours
[facility] accepted SNF Referral
CM spoke with Daughter, Chanda, via phone; she is agreeable
CM will follow up in AM
[2024-12-09 16:49] LABS: Glucose - Point of Care 349 mg/dl (70-99)
[2024-12-09] MEDS: NOVOLOG FLEXPEN-LOW RESISTANCE 4 UNITS SC (16:56)
[2024-12-09 22:03] LABS: Glucose - Point of Care 229 mg/dl (70-99)
[2024-12-09] MEDS: MELATONIN 3 MG PO (22:10)
[2024-12-09] MEDS: TOPROL XL 50 MG PO (22:10)
[2024-12-09] MEDS: SENOKOT 17.2 MG PO (22:10)
[2024-12-09] MEDS: NOVOLOG FLEXPEN-LOW RESISTANCE 2 UNITS SC (22:11)
[2024-12-10] VITALS (7 sets, daily range): BP systolic 86–150; BP diastolic 49–96; PULSE 89; O2SAT 94; BMI 17.2
[2024-12-10 07:26] LABS: INR 2.54; PT 27.4 Sec (11.4-14.6)
[2024-12-10 08:24] LABS: Glucose - Point of Care 167 mg/dl (70-99)
[2024-12-10] MEDS: REFRESH EYE DROPS (PF) 2 DROPS BOTH EYES (09:12)
[2024-12-10] MEDS: DETROL LA 4 MG PO (09:12)
[2024-12-10] MEDS: NOVOLOG FLEXPEN-LOW RESISTANCE 1 UNITS SC (09:12)
[2024-12-10] MEDS: PROSCAR 5 MG PO (09:12)
[2024-12-10] MEDS: FLORINEF 0.1 MG PO (09:12)
[2024-12-10 12:20] LABS: Glucose - Point of Care 204 mg/dl (70-99)
[2024-12-10] MEDS: NOVOLOG FLEXPEN-LOW RESISTANCE 2 UNITS SC (13:31)
--- NOTE | 2024-12-10 14:26 | CM ---
Addendum entered by Shaila Marion 12/10/24 15:01:
5:30 p.m. ambulance transport scheduled.
Original Note:
CM reviewed chart, spoke with daughter, Chanda, agreeable to rehab. [facility] able to offer a bed, authorization approved 12/10-12/14, next review 12/14, call for review [phone], auth #[id number], ambulance auth [id number]. Phone call to
daughter Chanda to provide update and review IMM, left voicemail. CM will continue to follow for all discharge planning needs.
Plan; [facility], ambulance transport required
[facility]
Report: [phone]
--- NOTE | 2024-12-10 16:14 | PTCARENOTE ---
Pt noted to have lower BP after working with PT and sitting OOB to chair. Patient reports intermittent dizziness while sitting up. Manual BP is 92/50. MD notified. Midodrine added for patient.
--- NOTE | 2024-12-10 16:16 | W.DCSUMMARY ---
Discharge Summary
Discharge Data
Date of Admission: 12/05/24
Date of Discharge: 12/10/24
-
Pending Results: No
Hospital Course
Mr. Murillo is an 84-year-old male with a medical history of combined systolic and diastolic heart failure, CVA, COPD, orthostatic hypotension (on fludrocortisone), and permanent A-fib (on warfarin) who was admitted with shortness of breath and
lethargy. He was found to be in acute heart failure and started on diuretic. His symptoms improved with adequate diuresis which will be continued only as needed to avoid hypotension. He returned to his baseline mental status per family. His home
warfarin was held due to supratherapeutic INR initially of 5.5 which jeimy to 6.9 prior to downtrending. Warfarin was restarted after his INR reached 2.5. He should continue to have his INR checked regularly to ensure remains within the therapeutic
range. His PCP will need to adjust his warfarin regimen as needed. He continued to have occasional episodes of orthostasis for which she was started on low-dose midodrine. He will be continued on his home fludrocortisone. He was evaluated by
PT/OT who recommended SNF for ongoing therapy following hospital discharge. SNF placement has been arranged by case management.
Gen-awake and alert, NAD
HEENT-NC, AT, anicteric, clear oral mm
Neck-supple
CV-irregular rhythm, heart rate controlled
Lungs-clear B/L
Abd-soft, NT, ND
Musculoskeletal-no edema, no deformity
Skin-warm and dry
Neuro-grossly non-focal
Psych-calm, cooperative
Discharge Plan
-
Patient Disposition: [facility]ci/SNF
Discharge Diagnosis/Procedures: Acute on chronic systolic and diastolic heart failure
Diet: Low Cholesterol
Activity: With assistance and As tolerated
Activity Restrictions/Additional Instructions:
Mr. Murillo is an 84-year-old male with a medical history of combined systolic and diastolic heart failure, CVA, COPD, orthostatic hypotension (on fludrocortisone), and permanent A-fib (on warfarin) who was admitted with shortness of breath and
lethargy. He was found to be in acute heart failure and started on diuretic. His symptoms improved with adequate diuresis which will be continued only as needed to avoid hypotension. He returned to his baseline mental status per family. His home
warfarin was held due to supratherapeutic INR initially of 5.5 which jeimy to 6.9 prior to downtrending. Warfarin was restarted after his INR reached 2.5. He should continue to have his INR checked regularly to ensure remains within the therapeutic
range. His PCP will need to adjust his warfarin regimen as needed. He continued to have occasional episodes of orthostasis for which she was started on low-dose midodrine. He will be continued on his home fludrocortisone. He was evaluated by
PT/OT who recommended SNF for ongoing therapy following hospital discharge. SNF placement has been arranged by case management.
Instructions: *PCP/Other Orthopedics Pediatric Physician Heart Failure Instructions
Referrals:
John Naik MD [Family Provider] -
Prescriptions:
New
midodrine 2.5 mg Tablet
2.5 mg PO TID@0800,1300,1800 30 Days Qty: 90 0RF
Continued
sennosides [senna] 8.6 mg Tablet
17.2 mg PO HS
polyethylene glycol 3350 [Miralax] 17 gram Powder In Packet
17 g PO DAILYPRN PRN (Reason: constipation)
metoprolol succinate 25 mg tablet extended release 24 hr
25 mg PO HS
fludrocortisone 0.1 mg tablet
0.1 mg PO DAILY
dutasteride 0.5 mg capsule
0.5 mg PO DAILY
solifenacin 10 mg tablet
10 mg PO DAILY
melatonin 3 mg Tablet
3 mg PO HS
Artificial Tears (PF) 0.1-0.3 % Dropperette
2 drp BOTH EYES DAILY
Changed
warfarin 5 mg tablet
5 mg PO DAILY Qty: 0 0RF
Discontinued
warfarin 5 mg tablet
7.5 mg PO TUTHSA@1999
Discharge Orders:
Discharge Patient (As Directed); Ordered 12/10/24
Ordered By: Keith Anton
Discharge Date and Time
Print Language: ESTONIAN
[2024-12-10 16:26] LABS: Glucose - Point of Care 144 mg/dl (70-99)
[2024-12-10] MEDS: ProAmatine 2.5 MG PO (16:42)
[2024-12-10] MEDS: NOVOLOG FLEXPEN-LOW RESISTANCE SC (16:42)
[2024-12-10] MEDS: ProAmatine PO (17:04)
--- NOTE | 2024-12-10 17:04 | PTCARENOTE ---
Report called in to Maynor at [facility]. 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
[2024-12-10] MEDS: COUMADIN 5 MG PO (17:27)
--- NOTE | 2024-12-11 15:06 | W.HF.CON ---
Heart Failure
- LV Function
Left ventricular function study result: LV Ejection fraction >/= 50%
Ejection Fraction Percentage: 55-60
- ARNI
Patient already on ARNI: No
Heart Failure ARNI Not Indicated: LV Ejection Fraction >/= 40%
- ACEI/ARB
Patient already on ACEI/ARB: No
Heart Failure ACEI/ARB Not Indicated: LV Ejection Fraction > 40%
- Beta Soraida
Patient already on Evidence Based Beta Soraida: Yes
- Mineralocorticord Receptor Antagonist
Patient already on MRA: No
Heart Failure MRA Not Indicated: LV Ejection Fraction > 40%
- SGLT-2 Inhibitor
Patient already on SGLT-2 Inhibitor: No
Heart Failure SGLT-2 Inhibitor Not Indicated: LV Ejection Fraction >40%
- Afib Anticoagulation
Patient already on Anticoagulation for Afib: Yes
- NYHA CHF Classification
NYHA CHF Classification Level: Class III - Symptoms w/ min exertion, interferes w/ nml daily activity
- ACC/AHA Stage
ACC/AHA Stage: Stage C: Symptomatic Heart Failure
== END 2024-12-10 18:12 | DRG 291 ==
LOC: 4 WEST ACU 23:05
PROVIDERS: Internal Medicine; Physician Assistant Medical; ADMITTING PHYSICIAN Internal Medicine; ATTENDING PHYSICIAN Internal Medicine; CONSULT PHYSICIAN Internal Medicine Cardiovascular Disease; EMERGENCY PHYSICIAN Student in an Organized Health Care Education/Training Program; FAMILY PHYSICIAN Internal Medicine; OTHER PHYSICIAN Internal Medicine
DX: I50.43 Acute on chronic combined systolic (congestive) and diastolic (congestive) heart failure (principal); J96.01 Acute respiratory failure with hypoxia; J44.0 Chronic obstructive pulmonary disease with (acute) lower respiratory infection; I48.21 Permanent atrial fibrillation; Z68.1 Body mass index [BMI] 19.9 or less, adult; Z86.73 Personal history of transient ischemic attack (TIA), and cerebral infarction without residual deficits; I95.1 Orthostatic hypotension; N40.0 Benign prostatic hyperplasia without lower urinary tract symptoms; Z79.01 Long term (current) use of anticoagulants; K59.00 Constipation, unspecified; Z11.52 Encounter for screening for COVID-19; Z79.52 Long term (current) use of systemic steroids; R79.1 Abnormal coagulation profile; R63.6 Underweight
CPT/HCPCS: 51701; 70450; 71045; 80048; 80053; 81003; 81015; 82805; 82962; 83036; 83605; 83735; 83880; 84145; 84484; 85025; 85027; 85610; 87502; 87641; 87811; 92610; 93005; 93306; 94640; 96365; 96375; 97163; 97167; 97530; 99291

== ENCOUNTER 2025-03-11 16:06 | Inpatient (IN) | payer OTHER, SELFPAY ==
[2025-03-11] VITALS (9 sets, daily range): BP systolic 127–188; BP diastolic 71–114; BMI 21.0
[2025-03-11 10:18] LABS: Urine Albumin Negative (Neg - Trace); Urine Bilirubin Negative (Negative); Urine Character Clear (Clear); Urine Color Yellow; Urine Glucose Negative (Negative); Urine Ketone Negative (Negative); Urine Leukocyte Negative (Negative); Urine Nitrite Negative (Negative); Urine Occult Blood Negative (Negative); Urine Specific Gravity 1.015 (<1.030); Urine Urobilinogen Negative (Neg - 1+)
[2025-03-11 10:20] LABS: % Basophils 0.4 % (0-2); % Eosinophils 0.5 % (0-6); % Immature Granulocytes 0.5 % (0-0.5); % Lymphocytes 4.7 % (20.5-51.1); % Monocytes 6.8 % (1.7-9.3); % Neutrophils 87.1 % (42.2-75.2); Absolute Basophils 0.1 10^3/uL (0-0.2); Absolute Eosinophils 0.1 10^3/uL (0-0.7); Absolute Immature Granulocytes 0.1 10^3/uL (0-0.05); Absolute Lymphocytes 0.5 10^3/uL (1.2-3.4); Absolute Monocytes 0.8 10^3/uL (0.1-0.6); Absolute Neutrophils 9.7 10^3/uL (1.4-6.5); Hematocrit 40.7 % (39.0-52.0); Hemoglobin 12.7 g/dL (13.0-18.0); Mean Corp Hgb Conc. 31.2 g/dL (33.0-37.0); Mean Corpuscular Hgb 31.6 pg (27.0-31.0); Mean Corpuscular Volume 101.2 fL (80.0-94.0); Mean Platelet Volume 9.7 fL (7.4-10.4); Nucleated Red Blood Cells % 0 % (-); Platelet Count 350 10^3/uL (130-400); Red Blood Cell Count 4.02 10^6/uL (4.70-6.10); Red Cell Dist. Width 13.5 % (11.5-14.5); White Blood Cell Count 11.2 10^3/uL (4.8-10.8)
[2025-03-11 10:29] LABS: PT 53.5 Sec (11.4-14.6)
[2025-03-11 10:39] LABS: ALT (SGPT) 15 U/L (0-50); AST (SGOT) 18 U/L (17-59); Albumin 3.8 g/dl (3.5-5.0); Alkaline Phosphatase 164 U/L (38-126); Blood Urea Nitrogen 16 mg/dl (9-20); Calcium 9.2 mg/dl (8.4-10.2); Carbon Dioxide 36 mmol/L (22-30); Chloride 102 mmol/L (98-107); Glucose 154 mg/dl (70-99); Potassium 4.2 mmol/L (3.5-5.1); Sodium 142 mmol/L (135-145); Total Bilirubin 1.6 mg/dl (0.2-1.3); Total Protein 6.9 g/dl (6.3-8.2); eGFR > 60.00
[2025-03-11 10:43] LABS: INR 6.16
[2025-03-11 10:51] LABS: NT-proBNP 5870 pg/ml
--- NOTE | 2025-03-11 12:14 | ED.GENMED ---
History of Present Illness
General
Chief Complaint: Change in Mental Status
Source: patient
Exam Limitations: none
Time Seen by Provider: 03/11/25 09:49
History of Present Illness
History of Present Illness:
84-year-old male presents from [facility] assisted living after being weak and confused at the facility. He slid out of bed but did not sustain any injuries. He is on Coumadin for A-fib. Per the staff at the facility he was confused. His oxygen
was in the 80s. He has a history of CHF and A-fib. Patient denies pain. No other complaints
Past History
Past History
ED Past Medical History: Arrthythmia (Atrial fibrillation), CHF, COPD, CVA and HTN
Social History
Tobacco: Non-smoker
Alcohol: None
Phy Exam
Physical Exam
Physical Exam:
General: Well-appearing male slight increased work of breathing
HEENT: Normocephalic atraumatic
Heart: Irregular rate and rhythm
Lungs: Diminished left greater than the right extremities:
No cyanosis
Neurologic exam: Alert oriented to person and place response to questions appropriately
Course
Orders/Labs/Results
Orders:
Orders
03/11/25 09:55
Electrocardiogram (*1) Urgent
Reason for Study: Fatigue / Weakness
CT Head W/o Iv Contrast Urgent
Comment:
Reason For Exam: fall
EKG- Treatment ONCE
03/11/25 09:56
CR Chest - 2 Views Urgent
Comment:
Reason For Exam: weakness
03/11/25 10:11
Complete Blood Count/With Diff Urgent
Comprehensive Metabolic Panel Urgent
NT-proBNP Urgent
Prothrombin Time Urgent
Urinalysis Reflex To Culture Urgent
Date Specimen was Collected: 03/11/25
Time Specimen was Collected: 10:10
03/11/25 13:20
Furosemide [Lasix] 40 mg IV NOW STA
Abnormal Lab Results
03/11/25
10:11
WBC 11.2 H 10^3/uL
(4.8-10.8)
RBC 4.02 L 10^6/uL
(4.70-6.10)
Hgb 12.7 L g/dL
(13.0-18.0)
MCV 101.2 H fL
(80.0-94.0)
MCH 31.6 H pg
(27.0-31.0)
MCHC 31.2 L g/dL
(33.0-37.0)
Abs Immat Gran (auto) 0.1 H 10^3/uL
(0-0.05)
Absolute Neuts (auto) 9.7 H 10^3/uL
(1.4-6.5)
Absolute Lymphs (auto) 0.5 L 10^3/uL
(1.2-3.4)
Absolute Monos (auto) 0.8 H 10^3/uL
(0.1-0.6)
Neutrophils % 87.1 H %
(42.2-75.2)
Lymphocytes % 4.7 L %
(20.5-51.1)
PT 53.5 H Sec
(11.4-14.6)
INR 6.16 H*
Carbon Dioxide 36 H mmol/L
(22-30)
Creatinine 0.6 L mg/dL
(0.7-1.3)
Glucose 154 H mg/dl
(70-99)
Total Bilirubin 1.6 H mg/dl
(0.2-1.3)
Alkaline Phosphatase 164 H U/L
(38-126)
03/11/25 10:11
03/11/25 10:11
Vital Signs
Initial and Last Documented VS:
Initial Vital Signs
Temp Pulse Resp BP Pulse Ox
98.6 F 89 16 184/99 95
03/11/25 09:21 03/11/25 09:21 03/11/25 09:21 03/11/25 09:21 03/11/25 09:21
Last Documented Vital Signs
Temp Pulse Resp BP Pulse Ox
98.6 F 102 16 188/102 92
03/11/25 09:21 03/11/25 11:14 03/11/25 11:14 03/11/25 11:14 03/11/25 11:14
MDM/Problems Addressed
Differential Diagnosis Includes:
Weakness hypoxia confusion. Consider pneumonia versus CHF. He is anticoagulated unlikely to be PE.
Chest x-ray reviewed and demonstrates moderate to large left-sided pleural effusion that has increased since prior. He did drop down below 90% on room air is now requiring nasal oxygen. He is supratherapeutic on his Coumadin with an INR of 6.1.
*Critical Care Note
Total Time (30-74mins, 75-104mins- exclusive of procedures): Not Applicable
Update Note
Update Note:
Workup demonstrates moderate to large effusion on the left. Patient is slightly tachycardia requiring oxygen. Suspect CHF. Lasix ordered. No signs of trauma. Patient is supratherapeutic on the INR. Will hold Coumadin
ED Attending Note
-
Portions of this chart may have been created with voice recognition software.� Occasional wrong word or��sound alike� substitutions may have occurred due to the inherent limitations of voice recognition software.
Discharge Plan
Departure
Patient Disposition: Admit
Date of Disposition: 03/11/25
Time of Disposition: 13:22
Presentation/result/management discussed w/ accepting MD/DO: Hospitalist
Discharge Problem:
Acute CHF
Prescriptions:
No Action
sennosides [senna] 8.6 mg Tablet
17.2 mg PO HS
polyethylene glycol 3350 [Miralax] 17 gram Powder In Packet
17 g PO DAILYPRN PRN (Reason: constipation)
metoprolol succinate 25 mg tablet extended release 24 hr
25 mg PO HS
Rx Instructions:
03/11/25 hold for sbp<100
fludrocortisone 0.1 mg tablet
0.1 mg PO DAILY
melatonin 3 mg Tablet
3 mg PO HS
Artificial Tears (PF) 0.1-0.3 % Dropperette
2 drp BOTH EYES DAILY
acetaminophen 325 mg tablet
650 mg PO Q4HPRN PRN (Reason: pain/temp>100.4)
doxycycline hyclate 100 mg capsule
100 mg PO BID
Rx Instructions:
03/11/25: initiated 03/04/25 for 10 days
midodrine 5 mg tablet
15 mg PO TID@0800,1200,1700
Rx Instructions:
03/11/25: Hold if SBP>/=130
pantoprazole 20 mg tablet,delayed release (DR/EC)
20 mg PO DAILY
finasteride 5 mg tablet
5 mg PO DAILY
Tussin DM 5-50 mg/5 mL liquid
10 ml PO Q4HPRN PRN (Reason: cough)
warfarin 5 mg tablet
5 mg PO QPM
Referrals:
Randa Knutson CRNP [Family Provider] -
Interventions
Interventions:
*Risk Screen - Suicide Last Done: 03/11/25 09:21
*General Assessment Last Done: 03/11/25 09:42
*Neglect/Abuse Screening Last Done: 03/11/25 09:21
*ED- Fall Risk Assessment Last Done: 03/11/25 09:42
*ED COVID-19 Vaccine History Last Done: 03/11/25 09:42
ED- Neurological Assessment Last Done: 03/11/25 09:42
Discharge Date and Time
Print Language: SETSWANA
[2025-03-11] MEDS: LASIX 40 MG IV (13:54)
--- NOTE | 2025-03-11 15:05 | W.PN.UPDATE ---
Update Note
Progress Note Update
Seen and examined by me independently in collaboration with the FP resident .
Past medical history/social history/medication/allergies reviewed.
Lab data and imaging data reviewed.
Patient sent in because of cough, shortness of breath and hypoxia along with change in mental status.
He is alert and oriented to place person and the month but not the year.
Patient remembers the ambulance ride but is not sure why he is here. Denying shortness of breath but visible tachypnea noted. He does complain of cough. Not sure whether he has got increased weight or lower extremity edema. Denies chest pain or
palpitations. He is got A-fib and heart rates around 100's on the monitor in the ER.
Able to complete sentences but tachypnea noted.
JVD noted. His weight ends gone up compared to recent admission in November.
Bilateral lower extremity edema 2+ noted. Chest with no active wheeze or crackles but he has decreased breath sounds in the left lower zone with bronchial breathing.
Nontoxic looking.
S1 plus S2 heard with A-fib.
Afebrile. White count 11.2 not significantly elevated. Again nontoxic looking.
Elevated BNP and a chest x-ray finding of left more than right pleural effusion noted.
Clinical picture concerning for acute heart failure with preserved EF decompensation. Unclear etiology. He is known to have A-fib and the heart rate is on the higher side-try to optimize that. EKG shows A-fib with no acute ST-T changes. Obtain
troponin to rule out any new cardiac event. Start on IV Lasix at 40 mg. I see he has got mild metabolic alkalosis unclear if it is a compensated respiratory acidosis. He is not on any diuretics to cause metabolic alkalosis. Check a VBG. Known
to have COPD but no active reactive airways.
Consult cardiology.
Clinically doubt pneumonia. Hold on antibiotics. Follow the pleural effusion with diuresis. If persistent pleural effusion will obtain diagnostic tap. He had a left pleural effusion in November 2024 as well. He was then treated as possible
heart failure.
Supratherapeutic INR with no evidence of external bleeding. With recurrent supratherapeutic INR will discuss with cardiology regarding Eliquis going forward.
Patient wishes to be full code.
--- NOTE | 2025-03-11 15:23 | HPS.HSE ---
Family Physician
-
Family Physician: Randa Knutson
Chief Complaint
-
Generalized weakness and shortness of breath
History of Present Illness
Patient is an 84-year-old male with past medical history of combined systolic and diastolic heart failure, CVA, orthostatic hypotension (on fludrocortisone) and permanent atrial fibrillation (metoprolol, Coumadin). He was in his usual state of
health, when he gradually started to feel generalized weakness and dyspnea on exertion. He lives at an independent living facility uses a walker for ambulation. He denies any orthopnea and PND. In addition he was also having cough with small
amount of sputum but he remained afebrile.
He stated that he fell yesterday out of his bed, and bruised his arms back and legs and is having some pain over his back due to bruising but otherwise feels fine. Today, the staff at the independent living facility noticed that the patient was
short of breath and his sats were in upper 80s and they decided to refer him to ER. The patient is a poor historian. History obtained by calling the senior living and the daughter Chanda.
The senior living reported a change in mental status, they said that the patient was slow to response and in between was not able to follow the directions but does not have a history of baseline dementia but the daughter communicated that she had
noticed some changes in memory over her last visits.
On clinical evaluation, patient is tachypneic, breathing on 2 L of oxygen, appears very weak and fragile
Patient has stasis dermatitis, bilateral pedal edema, JVD distention and decreased breath sounds on left lower lung.
Denies any chest pain, orthopnea, PND, weight changes.
Medical History
Past Medical History
Past Medical History: Reports Arrhythmia (Permanent atrial fibrillation), CVA, HTN and Hypercholesterolemia
Past Surgical History: Reports Other (Cataract surgery, hernia repair)
Social History
Unable to obtain full social history at this time due to: Dementia
Family History
Family History: Not pertinent
Allergies / Home Medications
Allergies reflects when Allergies were last updated in [facility].
Home Medications with original date entered in [facility]
Allergy/Medication List:
Allergies
Allergy/AdvReac Type Severity Reaction Status Date / Time
oxybutynin Allergy Unknown Verified 07/08/24 10:24
Home Medications
fludrocortisone 0.1 mg tablet 0.1 mg PO DAILY orthostatic hypotension 07/08/24
metoprolol succinate 25 mg tablet,extended release 24 hr 25 mg PO HS 07/08/24
polyethylene glycol 3350 17 gram oral powder packet (Miralax) 17 g PO DAILYPRN PRN constipation 07/08/24
sennosides 8.6 mg tablet (senna) 17.2 mg PO HS 07/08/24
dextran 70-hypromellose (PF) 0.1 %-0.3 % eye drops in a dropperette (Artificial Tears (PF)) 2 drp BOTH EYES DAILY 12/05/24
melatonin 3 mg tablet 3 mg PO HS 12/05/24
acetaminophen 325 mg tablet 650 mg PO Q4HPRN PRN pain/temp>100.4 03/11/25
dextromethorphan 5 mg-guaifenesin 50 mg/5 mL oral liquid (Tussin DM) 10 ml PO Q4HPRN PRN cough 03/11/25
doxycycline hyclate 100 mg capsule 100 mg PO BID cellulitis 03/11/25
finasteride 5 mg tablet 5 mg PO DAILY bph 03/11/25
midodrine 5 mg tablet 15 mg PO TID@0800,1200,1700 orthostasis 03/11/25
pantoprazole 20 mg tablet,delayed release 20 mg PO DAILY 03/11/25
warfarin 5 mg tablet 5 mg PO QPM 03/11/25
Review of Systems
-
A 12 point ROS was completed and negative except as noted: Yes
Physical Exam
Vital Signs
Vital Signs
Temp Pulse Resp BP Pulse Ox
98.6 F 106 21 158/101 96
03/11/25 09:21 03/11/25 15:15 03/11/25 15:15 03/11/25 15:00 03/11/25 15:15
Physical Exam
General: Appears Chronically Ill and Other (Weak and fragile)
HEENT: Other (Pale and breathing on 2 L of oxygen)
Respiratory: Other (Decreased breath sounds on the left side, some rhonchi)
Cardiac: S1/S2, Irregular Rhythm, Tachycardia and JVD
GI: Soft, Non Tender, Non Distended and Normal Bowel Sounds
Musculoskeletal: Other (Venous stasis dermatitis of both legs, bilateral pitting edema)
Skin: Warm, Dry and Other (Multiple skin tags and SK lesions)
Neuro: Awake and Other (Strength 5/5 in all limbs, general deconditioning)
Psych: Calm and Confused (Oriented to name, limited history )
Laboratory Results
-
03/11/25 10:11
03/11/25 10:11
Laboratory Results
PT 53.5 Sec (11.4-14.6) H 03/11/25 10:11
INR 6.16 H* 03/11/25 10:11
Total Bilirubin 1.6 mg/dl (0.2-1.3) H 03/11/25 10:11
AST 18 U/L (17-59) 03/11/25 10:11
ALT 15 U/L (0-50) 03/11/25 10:11
Alkaline Phosphatase 164 U/L (38-126) H 03/11/25 10:11
Impression/Plan
-
IMPRESSION:
Mr. Murillo is an 84-year-old male who presented to the ER from his independent living facility due to concerns about change in mental status. His sats were in upper 80s and he was short of breath at the time of the referral. He was brought to the
ER, head CT showed no acute abnormalities, chest x-ray was consistent with left-sided pleural effusion, EKG showed no acute ST-T changes, proBNP greater than 5000, INR 6.16. Patient is currently requiring 2 L of oxygen, has bilateral pitting edema,
jugular venous distention, decreased breath sounds on the left side. Patient admitted for treatment of acute on chronic heart failure and concerning left-sided pleural effusion.
Assessment/PLAN:
#Acute on chronic heart failure with preserved ejection fraction
Dyspnea on exertion
JVD, bilateral pitting edema, decreased breath sounds
Chest x-ray, left-sided pleural effusion, proBNP greater than 5000
Received 40 mg Lasix in the ED
Continue 40 mg Lasix daily
Admit to telemetry
Cardiology consult
Input output monitoring, weight charting, monitoring serum creatinine and bicarb
Troponin levels
Continue metoprolol
#Metabolic alkalosis
Bicarb 36
VBG's
Continue to monitor
#Left-sided pleural effusion
Continue diuresis with 40 mg IV Lasix daily
Repeat x-ray to monitor improvement
#Supratherapeutic INR
Hold warfarin for now
Monitor INR
#Essential hypertension
Presented with hypertensive urgency with blood pressure as high as 184/99
Continue to monitor
Add IV hydralazine for as needed
Continue metoprolol
#Leukocytosis
Continue to monitor
DVT prophylaxis-SCDs
CODE STATUS-full code
[2025-03-11 17:41] LABS: B.E. 10.4 mmol/L; HCO3 34.3 mmol/L (21-28); O2 Saturation % 93.4 % (94-98); PCO2 42 mmHg (35-48); pH 7.52 (7.35-7.45)
[2025-03-11 17:44] LABS: O2 Therapy Air 94%
[2025-03-11 17:45] LABS: PO2 59 mmHg (83-108)
[2025-03-11] MEDS: ProAmatine PO (18:15)
[2025-03-11] MEDS: PROTONIX 20 MG PO (18:32)
[2025-03-11] MEDS: REFRESH EYE DROPS (PF) 2 DROPS BOTH EYES (18:33)
[2025-03-11] MEDS: PROSCAR 5 MG PO (18:33)
[2025-03-11] MEDS: APRESOLINE 5 MG IV (18:42)
--- NOTE | 2025-03-11 19:17 | PTCARENOTE ---
Received pt from ED into room 409-2. Pt pulled over to bed with assist x3. AAOx2. 2L O2 pox 95%. Answered all admission questions. Dinner ordered. See assessment and skin wound management documentation. Oriented to room, call zamarripa within reach, no
complaints at this time.
[2025-03-11] MEDS: SENOKOT 17.2 MG PO (20:48)
[2025-03-11] MEDS: TOPROL XL 25 MG PO (20:49)
[2025-03-11] MEDS: MELATONIN 3 MG PO (20:52)
[2025-03-12] VITALS (8 sets, daily range): BP systolic 112–155; BP diastolic 62–91; PULSE 99–113; O2SAT 94–95
[2025-03-12 07:28] LABS: Hematocrit 33.5 % (39.0-52.0); Hemoglobin 10.6 g/dL (13.0-18.0); Mean Corp Hgb Conc. 31.6 g/dL (33.0-37.0); Mean Corpuscular Hgb 31.8 pg (27.0-31.0); Mean Corpuscular Volume 100.6 fL (80.0-94.0); Mean Platelet Volume 9.7 fL (7.4-10.4); Platelet Count 303 10^3/uL (130-400); Red Blood Cell Count 3.33 10^6/uL (4.70-6.10); Red Cell Dist. Width 13.4 % (11.5-14.5); White Blood Cell Count 9.5 10^3/uL (4.8-10.8)
[2025-03-12 07:38] LABS: Troponin I < 0.012 ng/ml
--- NOTE | 2025-03-12 07:39 | W.PN.HOSP.TC ---
Addendum entered and electronically signed by Blake Borden MD 03/12/25 14:23:
Seen and examined by me independently in collaboration with the medical underwriter.
Lab data and imaging data reviewed.
Addendum as below :
Patient feels improved with regards to breathing. Cough minimal. Denies any chest pain.
Decreased breath sounds at the right base but no added sounds nor any active bronchospasm.
Improved lower extremity edema.
Troponins on admission negative.
Acute heart failure possibly diastolic. Last echo showed EF of 55 to 60% in November 2024. Improved weight with ongoing diuresis. Continue with IV Lasix. Await input from cardiology attending.
Persistent supratherapeutic INR. No obvious external bleeding. Drop in H&H may be equilibration. At this point I add vitamin K treatment to bring down INR. Follow H&H closely. Heme test stools. He is hemodynamically stable.
Will discuss with cardiology regarding utility of NOACs with recurrent supratherapeutic INR.
Total time spent on today's encounter was 52 minutes which included time spent in counseling the patient/family regarding diagnosis and treatment plan as listed above, goals of care, and symptom management. Case was discussed with nursing staff,
specialists, and care coordinators/case management. All labs and imaging personally reviewed by me. Remainder the time spent in detailed review of previous records, lab data, imaging, and other medical provider documentation.
Original Note:
Today's Communication/Plan
-
Cardiology consult
Continue diuresis
Speech evaluation
Monitor INR
Input output monitoring, weight charting
Assessment / Plan
Assessment / Plan
Impression
Patient is an 84-year-old male, who presented with cough, shortness of breath and hypoxia along with change in mental status from his independent living facility. His last hospitalization in 03/05/2025, he weighed 65 EKGs approximately, on this
admission he weighs 74 kg's. JVD present, bilateral pedal edema present, bilateral decreased breath sounds at lung bases consistent with acute on chronic heart failure with preserved ejection fraction. In addition noticed increased work of
breathing and tachycardia with irregular heart rhythm. Chest x-ray done in the ER, pleural effusion bilaterally left more than right. On his labs he has metabolic alkalosis. Will keep an eye on electrolytes, creatinine and bicarb while diuresing
the patient.
He also had supratherapeutic INR of 6.
Assessment/plan
#Acute on chronic heart failure with preserved ejection fraction
Dyspnea on exertion
JVD, bilateral pitting edema, decreased breath sounds
Chest x-ray, left-sided pleural effusion, proBNP greater than 5000
Continue 40 mg IV Lasix daily
ABGs consistent with metabolic alkalosis, keep monitoring electrolytes, creatinine and bicarb while diuresing
Input output monitoring, weight charting, monitoring serum creatinine and bicarb
Troponin levels normal
Heart rate well-controlled with metoprolol
Cardiology consult appreciated-agree with cautious Lasix, will hold the fluid record given low potassium and volume retention, hold warfarin supra therapeutic INR could be due to some antibiotic that he used for a skin infection
#Permanent atrial fibrillation
Continue metoprolol
Warfarin on hold due to supratherapeutic INR- INR today 7.8-2.5 mg vitamin K IV stat-continue to monitor
Heart rate well-controlled, patient in sinus rhythm
#Metabolic alkalosis
On ABGs bicarb 59
Metabolic alkalosis without carbon dioxide retention
Continue to monitor
#Left-sided pleural effusion
Continue diuresis with 40 mg IV Lasix daily
Repeat chest x-ray to monitor improvement
#Supratherapeutic INR
Warfarin on hold due to supratherapeutic INR- INR today 7.8
-2.5 mg vitamin K IV stat-continue to monitor
#Essential hypertension
Presented with hypertensive urgency with blood pressure as high as 184/99
Continue to monitor
Add IV hydralazine for as needed
Continue metoprolol
#Leukocytosis
Continue to monitor
DVT prophylaxis-SCDs
CODE STATUS-full code
Anticipated Discharge: 24 - 48 hours
Subjective/Interval History
-
Date of Service: March 12, 2025
He denies any issues, feels fine no shortness of breath but does have some fatigue, aches and pains.
Objective Data
-
Labs:
Laboratory Results
03/12/25
06:44
WBC 9.5
Hgb 10.6 L
Hct 33.5 L
Plt Count 303
PT Pending
INR Pending
APTT Pending
Sodium Pending
Potassium Pending
Chloride Pending
Carbon Dioxide Pending
BUN Pending
Creatinine Pending
Glucose Pending
Calcium Pending
Vital Signs:
Vital Signs
Temp Pulse Resp BP Pulse Ox
98 F 87 16 147/86 97
03/12/25 03:28 03/12/25 03:28 03/12/25 03:28 03/12/25 03:28 03/12/25 03:28
Review of Systems
-
All other systems: Reviewed and negative
Physical Exam
-
General: Appears Chronically Ill
HEENT: Anicteric
Respiratory: Decreased Breath Sounds and Other (Bilateral crackles)
Cardiac: S1/S2, Irregular Rhythm, JVD and Tachycardic
GI: Soft, Nontender, Nondistended and Normal Bowel Sounds
Musculoskeletal: No Clubbing, No Cyanosis and Other (Bilateral pitting edema, venous stasis dermatitis with thick leathery skin)
Skin: Warm and Dry
Neuro: Awake and Oriented (To name only)
Psych: Calm
[2025-03-12 07:43] LABS: PT 64.2 Sec (11.4-14.6)
[2025-03-12 07:48] LABS: APTT 83.4 Sec (23.4-35.0)
[2025-03-12 07:59] LABS: Blood Urea Nitrogen 15 mg/dl (9-20); Calcium 8.2 mg/dl (8.4-10.2); Carbon Dioxide 37 mmol/L (22-30); Chloride 102 mmol/L (98-107); Estimated Creatinine Clearance 87 ml/min; Glucose 128 mg/dl (70-99); Iron 39 ug/dl (49-181); Magnesium 1.8 mg/dl (1.6-2.3); Sodium 142 mmol/L (135-145); eGFR > 60.00
[2025-03-12 08:03] LABS: INR 7.84
[2025-03-12 08:20] LABS: Percent Saturation 13 % (20-50); Total Iron Binding Capacity 287 ug/dl (261-462)
[2025-03-12] MEDS: KCL ELIXIR 40 MEQ PO (08:45)
[2025-03-12] MEDS: ProAmatine PO ×3 (09:18→16:28)
[2025-03-12] MEDS: PROTONIX 20 MG PO (09:18)
[2025-03-12] MEDS: LASIX 40 MG IV (09:18)
[2025-03-12] MEDS: PROSCAR 5 MG PO (09:19)
[2025-03-12] MEDS: REFRESH EYE DROPS (PF) 2 DROPS BOTH EYES (09:19)
--- NOTE | 2025-03-12 09:27 | CON.CAR ---
Addendum entered and electronically signed by Marty Zapien MD 03/12/25 11:53:
I saw and examined the patient.
The GAUGE CONTROLLER's note was reviewed and I agree with the note.
Comment: 84 y/o pt with history of CVA, permanent AF on warfarin, orthostatic hypotension, HFpEF, hyperlipidemia who had a falling trying to get to his walker from his bed. He denies dizziness or palpitations. He denies LOC. He is an unreliable
historian, but also reports that he had been taking an antibiotic for a skin infection. Denies any s/sx of active bleeding.
On exam he is alert and oriented. He had a 'wet cough' when he was talking, but he had some decreased bs bl, irreg irregular rate and rhythm. His leg are without edema. ECG shows af with anteroseptal infarct and pvcs, tele with rate control fib, CXR
with mild pulm edema and lt > rt effusion. Labs show elevated INR with slight drop in hgb. He does appear to have an acute hfpef exacerbation, not sure that explaines reason for admission. Agree with cautious lasix. He has a history of OH. Will
hold fludrocort given low K and volume retention. Lets see if midodrine will be enough. Fib is rate controlled with low dose metoprolol will continue. INR supratherapuetic ?recent abx, hold warfarin. No s/sx of active bleeding at this time. He is a
fall risk. Will get records from [facility]. Will follow.
Original Note:
Consultation
Consultation Request
Date/Time Consultation Requested: 03/12/2025 0800
Date/Time Consultation Performed: 03/12/25 0900
Requesting Provider:
Performing Provider:
Reason for Consultation: SOB, hypoxia, fall
Medical History
-
Chief Complaint: fall, SOB
History of Present Illness:
Primary architectural inspector: DICK Scherer.
84 y/o pt with history of CVA, permanent AF on warfarin, orthostatic hypotension, HFpEF, hyperlipidemia who attempted to get out of bed yesterday and slid out. He could not get up. His O2 sats were noted to be in the 80's. He has been having some
confusion. Pt states breathing is better today with O2. He denies LE edema. He does not do daily weights. He denies CP or palpitations. CXR with mod L pleural effusion. BNP 5870. Pt is a poor historian.
Past Medical History
Past Medical History: Arrhythmias (AF), CVA, Hypercholesterolemia and Other (orthostatic hypotension,dementia)
Past Surgical History: Other (cataract surgery, hernia repair noted from chart as pt forgetfull)
Social History
Tobacco: Non-Smoker
Alcohol: None
Living: Assisted Living
Family History
Family History: Reviewed & Not Pertinent
Allergies / Home Medications
Allergy/AdvReac Type Severity Reaction Status Date / Time
oxybutynin Allergy Unknown Verified 07/08/24 10:24
�Medication �Instructions �Recorded �Confirmed �Type
fludrocortisone 0.1 mg tablet 0.1 mg PO DAILY orthostatic 07/08/24 03/11/25 History
hypotension
metoprolol succinate 25 mg 25 mg PO HS Blood Pressure 07/08/24 03/11/25 History
tablet,extended release 24 hr
polyethylene glycol 3350 17 gram 17 g PO DAILYPRN PRN constipation 07/08/24 03/11/25 History
oral powder packet (Miralax)
sennosides 8.6 mg tablet (senna) 17.2 mg PO HS Constipation 07/08/24 03/11/25 History
dextran 70-hypromellose (PF) 0.1 2 drp BOTH EYES DAILY Eye Condition 12/05/24 03/11/25 History
%-0.3 % eye drops in a dropperette
(Artificial Tears (PF))
melatonin 3 mg tablet 3 mg PO HS Sleep 12/05/24 03/11/25 History
acetaminophen 325 mg tablet 650 mg PO Q4HPRN PRN 03/11/25 03/11/25 History
pain/temp>100.4
dextromethorphan 5 mg-guaifenesin 10 ml PO Q4HPRN PRN cough 03/11/25 03/11/25 History
50 mg/5 mL oral liquid (Tussin DM)
doxycycline hyclate 100 mg capsule 100 mg PO BID cellulitis 03/11/25 03/11/25 History
finasteride 5 mg tablet 5 mg PO DAILY bph 03/11/25 03/11/25 History
midodrine 5 mg tablet 15 mg PO TID@0800,1200,1700 03/11/25 03/11/25 History
orthostasis
pantoprazole 20 mg tablet,delayed 20 mg PO DAILY Gastrointestinal 03/11/25 03/11/25 History
release Issue
warfarin 5 mg tablet 5 mg PO QPM Blood Clot 03/11/25 03/11/25 History
Prevention/Tx
Review of Systems
-
History Source: Patient
Constitutional: Fatigue
EENT: No Symptoms
Respiratory: Trouble Breathing
Cardiac: No Symptoms
Abdomen/GI: No Symptoms
: No Symptoms
Musculoskeletal: No Symptoms
Skin: No Symptoms
Physical Exam
Vital Signs
Temp Pulse Resp BP Pulse Ox
97.9 F 92 20 155/87 98
03/12/25 07:47 03/12/25 09:18 03/12/25 07:47 03/12/25 09:18 03/12/25 07:47
Lab Results
03/12/25 06:44
03/12/25 06:44
Troponin I < 0.012 ng/ml 03/12/25 06:44
Vze-[id number]-Ygexpkpkgow Pept 5870 pg/ml 03/11/25 10:11
Physical Exam
General: No Apparent Distress and Comfortable
HEENT: Normocephalic and Anicteric
Respiratory: Clear
Cardiac: S1/S2 and Irregular Rhythm
Breast: N/A
GI: Soft, Non Tender and Normal Bowel Sounds
Musculoskeletal: No Clubbing and No Edema
Skin: Warm and Dry
Neuro: Awake and Alert (forgetful)
Psych: Calm
Impression / Plan
-
Acute on chronic HFpEF:
-not on diuretic at home
-CXR with pleural effusions R >L
-BNP 8700
-IV lasix was given in ER. Potassium low today . Replacement being given.
-weight trending down. admit 72.3 kg, today 68.6 kg
-Echo in 11/2024 EF 55-60
-Sodium and fluid restrictions.
permanent AF:
-rates have been 90-100's
-INR on admit supratherapeutic. warfarin being held. INR today 7.84 ( last admit supratherapeutic on admit as well)
-attempt to increase metoprolol for rate control.
Orthostatic hypotension:
-on midodrine and florinef at home. BP's hypertensive here.
-check orthostatic BP's.
Data Reviewed
-
Radiology: Report Reviewed by me (CXR 03/11/25 :Dense opacification of the lower left hemithorax compatible at least in part with moderate left pleural effusion, significantly increased. Likely small right pleural effusion.)
Medical Tests (Nuc Med, Echo etc): Report Reviewed by me (Echo 12/06/24 EF 55-60, severely dilated R atrium, L atrium mod dilated trace MR, small pericardial effusion, mildly dilated aortic root SOV 3.9cm, IVC severly dilated) and Other (EKG
03/11/25 AF 95 bpm, non specific ST abn. Tele: AF 90-110's )
Labs: Labs Reviewed by me, Discussed with Physician and Discussed with Patient
Old Records: Requested
[2025-03-12] MEDS: AQUAMEPHYTON 50.25 MG IV (10:02)
[2025-03-12] MEDS: KCL 270 MEQ IV (10:45)
[2025-03-12] MEDS: FERRLECIT 110 MG IV (15:27)
--- NOTE | 2025-03-12 15:34 | PTOTSP ---
Dysphagia Eval
Patient is reporting history of pre-existing dysphagia (i.e., regurgitation of solids, chopped diet prior to admission). Staff reporting signs of aspiration with PO intake (at times liquids, solids) this admission. Patient with intermittent cough
in absence of and with PO that could not be distinguished from aspiration at the bedside. Dysphagia risk factors include heart failure and SOB/hypoxia.
Recommend:
1. IDDSI Level 6 Soft/Bite Sized, Thin Liquids
2. Medications as best tolerated
3. Full supervision and assist as needed
4. Strategies: upright to 90 degrees, small sips/bites, slow rate, reflux precautions, oral care 3x daily
5. Video swallow study to objectively assess swallow function and r/o aspiration
--- NOTE | 2025-03-12 16:32 | CM ---
Met with patient to obtain information for assessment. Patient was a little forgetful but stated that he lives with his at [facility]. He receives assistance with with all self care, ADLs, personal care and assistance with nutrition teacher.
Patient uses a walker for short distances and a w/c for longer distances. He has not had VN and stated that he has not been to a SNF in the past.
Patient has a prescription plan and uses, [facility].
Patient's PCP is, Randa Otto.
Plan: Case management will continue to follow and assist with discharge planning. Patient would like to return home when cleared for discharge.
[2025-03-12 20:43] LABS: INR 1.95; PT 22.4 Sec (11.4-14.6)
[2025-03-12] MEDS: SENOKOT 17.2 MG PO (21:01)
[2025-03-12] MEDS: MELATONIN 3 MG PO (21:02)
[2025-03-12] MEDS: TOPROL XL 25 MG PO (21:06)
[2025-03-13] VITALS (7 sets, daily range): BP systolic 109–160; BP diastolic 68–96; PULSE 107–112; BMI 19.9
[2025-03-13 07:17] LABS: Hematocrit 34.8 % (39.0-52.0); Mean Corp Hgb Conc. 31.6 g/dL (33.0-37.0); Mean Corpuscular Hgb 31.5 pg (27.0-31.0); Mean Corpuscular Volume 99.7 fL (80.0-94.0); Mean Platelet Volume 9.7 fL (7.4-10.4); Platelet Count 309 10^3/uL (130-400); Red Blood Cell Count 3.49 10^6/uL (4.70-6.10); Red Cell Dist. Width 13.6 % (11.5-14.5)
[2025-03-13 07:25] LABS: INR 1.43; PT 17.7 Sec (11.4-14.6)
[2025-03-13] MEDS: REFRESH EYE DROPS (PF) 2 DROPS BOTH EYES (07:53)
[2025-03-13] MEDS: ProAmatine PO ×3 (07:53→17:36)
[2025-03-13] MEDS: PROSCAR 5 MG PO (07:54)
[2025-03-13] MEDS: PROTONIX 20 MG PO (07:54)
--- NOTE | 2025-03-13 07:54 | W.PN.CD ---
Today's Communication / Plan
-
Restart warfarin
IV lasix
Impression / Plan
-
Acute on chronic HFpEF:
-not on diuretic at home; volume exam does not seem to have significant volume but seems to be improving on IV lasix
-CXR with pleural effusions L>R
-BNP 8700
-IV lasix today likely PO tomorrow
-weight trending down. admit 72.3 kg, today 68.6 kg
-Echo in 11/2024 EF 55-60
-Sodium and fluid restrictions.
permanent AF: rate controlled
-INR on admit supratherapeutic. warfarin being held. INR today 7.84 now <2.0
- restart warfarin
Orthostatic hypotension:
-on midodrine and florinef at home. BP's hypertensive here.
-cont midodrine hold florinef
Physical Exam
Vital Signs/Labs
Vital Signs
Temp Pulse Resp BP Pulse Ox
97.5 F 77 18 160/93 92
03/13/25 03:00 03/13/25 03:00 03/13/25 03:00 03/13/25 03:00 03/13/25 03:00
03/12/25 03/13/25 03/14/25
06:59 06:59 06:59
Actual Weight 159 lb 2 oz 150 lb 14.4 oz
03/13/25 06:28
PT 17.7 Sec (11.4-14.6) H 03/13/25 06:28
INR 1.43 03/13/25 06:28
APTT 83.4 Sec (23.4-35.0) H 03/12/25 06:44
Magnesium 1.8 mg/dl (1.6-2.3) 03/12/25 06:44
03/11/25
10:11
Mok-H-Qyedicsvlmx Pept 5870
LAB Results
03/12/25
06:44
Troponin I < 0.012
Physical Exam
Constitutional: No acute distress
EENT: Anicteric
Cardiovascular: Pedal edema is absent and Rhythm/rate is irregular
Respiratory: Respiratory effort normal and Lungs clear to auscul.
GI: Soft
Neuro/Psych: Alert and Oriented (to person not difficulty with location/time this am)
Data Reviewed
-
Date of Service: March 13, 2025
EKG: Tracing Personally Visualized and interpreted (af)
Echo: Report Reviewed by me
Labs: Labs Reviewed by me
[2025-03-13 08:08] LABS: Blood Urea Nitrogen 17 mg/dl (9-20); Calcium 8.4 mg/dl (8.4-10.2); Carbon Dioxide 34 mmol/L (22-30); Chloride 103 mmol/L (98-107); Estimated Creatinine Clearance 87 ml/min; Glucose 117 mg/dl (70-99); Magnesium 1.8 mg/dl (1.6-2.3); Potassium 3.7 mmol/L (3.5-5.1); Sodium 141 mmol/L (135-145); eGFR > 60.00
[2025-03-13] MEDS: LASIX 40 MG IV (08:28)
--- NOTE | 2025-03-13 15:53 | W.PN.HOSP.TC ---
Addendum entered and electronically signed by Blake Borden MD 03/13/25 17:22:
Seen and examined by me independently in collaboration with the medical driver.
Lab data and imaging data reviewed.
Addendum as below :
Improved weight and shortness of breath. Off of oxygen. Continue diuresis per cardiology
Patient had silent aspiration on VSE with severe pharyngeal and mild to moderate oral dysphagia. He says this is going on for the last 3 weeks. No other cranial now obvious deficits. Nonfocal neurological on gross exam. Patient denies history of
strokes. Check a CT head and will ask neurology input for any neurological etiologies for dysphagia.
His INR is now less than 2. Check cost of Eliquis and if permitted we will start it otherwise we will start Coumadin tonight.
Total time spent on today's encounter was 52 minutes which included time spent in counseling the patient/family regarding diagnosis and treatment plan as listed above, goals of care, and symptom management. Case was discussed with nursing staff,
specialists, and care coordinators/case management. All labs and imaging personally reviewed by me. Remainder the time spent in detailed review of previous records, lab data, imaging, and other medical provider documentation.
Original Note:
Today's Communication/Plan
-
Shift to pur�ed diet
Follow-up with video swallowing exam
Neurology consult
Assessment / Plan
Assessment / Plan
Impression
Patient is an 84-year-old male, who presented with cough, shortness of breath and hypoxia along with change in mental status from his independent living facility. His last hospitalization in 03/05/2025, he weighed 65 EKGs approximately, on this
admission he weighs 74 kg's. JVD present, bilateral pedal edema present, bilateral decreased breath sounds at lung bases consistent with acute on chronic heart failure with preserved ejection fraction. In addition noticed increased work of
breathing and tachycardia with irregular heart rhythm. Chest x-ray done in the ER, pleural effusion bilaterally left more than right. On his labs he has metabolic alkalosis. Will keep an eye on electrolytes, creatinine and bicarb while diuresing
the patient.
He also had supratherapeutic INR of 6.
Assessment/plan
#Dysphagia
Nurse reported patient coughing while swallowing food, made n.p.o., speech evaluation done, recommended soft and bite-size food
Today video swallowing study done, silent aspiration-report pending-most likely pharyngeal origin
Suspect probable neurological issue-Repeat head CT-Repeat head CT-did not show any acute intracranial bleed/mass
Did not aspirate to pur�ed/thick liquids-IDSSI -4 diet advised
#Acute on chronic heart failure with preserved ejection fraction
Presented with worsening dyspnea, JVD, bilateral pitting edema and decreased breath sounds
Responding to IV Lasix-on Lasix at home-plan to shift on oral Lasix tomorrow as per cards
Continue input/output monitoring currently in negative balance of 630 mL
Admitted with a weight of 158 pounds currently, currently weighs approximately 50 pounds
Cardiology consult appreciated-low potassium/orthostatic vitals-hold fludrocortisone, continue midodrine with holding parameters
Last echo November 2024 ejection fraction 55 to 60%
Sodium and fluid restriction
#Permanent atrial fibrillation/Supratherapeutic INR
Continue metoprolol
Warfarin on hold-received vitamin K 2.5 mg yesterday for an INR of 7.8-current INR 1.4
Heart rate well-controlled, patient in sinus rhythm
#Metabolic alkalosis
Patient has rapid shallow breathing, elevated bicarb, although breathing on room air
Repeat chest x-ray
#Left-sided pleural effusion
Continue diuresis with 40 mg IV Lasix daily
Repeat chest x-ray to monitor improvement
#Essential hypertension-presented with hypertensive urgency, continue home medications as able, use IV hydralazine on as-needed basis
#Leukocytosis-resolved
DVT prophylaxis-SCDs
CODE STATUS-full code
Anticipated Discharge: > 48 hours
Subjective/Interval History
-
Date of Service: March 13, 2025
Patient denies any symptoms, breathing on room air, denies any dizziness, weakness
Objective Data
-
Labs:
Laboratory Results
03/13/25
06:28
WBC 9.0
Hgb 11.0 L
Hct 34.8 L
Plt Count 309
PT 17.7 H
INR 1.43
Sodium 141
Potassium 3.7
Chloride 103
Carbon Dioxide 34 H
BUN 17
Creatinine 0.6 L
Glucose 117 H
Calcium 8.4
Vital Signs:
Vital Signs
Temp Pulse Resp BP Pulse Ox
97.2 F 91 18 109/69 95
03/13/25 12:02 03/13/25 12:02 03/13/25 12:02 03/13/25 12:02 03/13/25 12:02
I&O
03/12/25 03/13/25 03/14/25
06:59 06:59 06:59
Intake Total 120 / 120
Output Total 750 / 750
Balance -630 / -630
Review of Systems
-
All other systems: Reviewed and negative
Physical Exam
-
General: Appears Chronically Ill, Cachectic and Other (Very weak and fragile)
HEENT: Moist Mucous Membranes and Other (Pale appearing but breathing on room air)
Respiratory: Crackles (Bilateral lung bases, more on left side) and Decreased Breath Sounds (Bilaterally)
Cardiac: S1/S2, Irregular Rhythm and Other (Orthostatic vitals positive)
GI: Soft, Nontender and Normal Bowel Sounds
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
Skin: Warm and Dry
Neuro: Awake and AO x 3
Psych: Calm
[2025-03-13] MEDS: FERRLECIT 110 MG IV (15:54)
--- NOTE | 2025-03-13 16:16 | DOWNTIME ---
There was a [employer] Downtime on 03/13/2025 from 1230 to 03/13/2025 at 1550. Downtime documentation of patient's care, including medication administrations, has been reconciled in the electronic record per guidelines. Refer to the
patient's paper chart under the miscellaneous tab to see printed paper medication records and downtime forms.
[2025-03-13] MEDS: D5/0.45%NACL 1000 IV (16:51)
--- NOTE | 2025-03-13 17:41 | CM ---
Spoke with Nicole at [facility] who stated that patient is current with their services. Will send resumption of care through [employer].
Plan: Case management will continue to follow and assist with discharge planning. Home with VN.
[2025-03-13] MEDS: COUMADIN 5 MG PO (18:31)
[2025-03-13] MEDS: SENOKOT 17.2 MG PO (21:09)
[2025-03-13] MEDS: MELATONIN 3 MG PO (21:10)
[2025-03-13] MEDS: TOPROL XL 25 MG PO (21:10)
[2025-03-14] VITALS (11 sets, daily range): BP systolic 101–162; BP diastolic 73–105; PULSE 87–104; O2SAT 94; BMI 19.6
[2025-03-14 07:06] LABS: PT 17.7 Sec (11.4-14.6)
[2025-03-14 07:23] LABS: Blood Urea Nitrogen 18 mg/dl (9-20); Calcium 8.3 mg/dl (8.4-10.2); Carbon Dioxide 39 mmol/L (22-30); Chloride 103 mmol/L (98-107); Estimated Creatinine Clearance 86 ml/min; Glucose 131 mg/dl (70-99); Potassium 3.8 mmol/L (3.5-5.1); Sodium 141 mmol/L (135-145); eGFR > 60.00
--- NOTE | 2025-03-14 08:30 | W.PN.HOSP.TC ---
Addendum entered and electronically signed by Blake Borden MD 03/14/25 13:13:
Seen and examined by me independently in collaboration with the biomedical engineering supervisor.
Lab data and imaging data reviewed.
Addendum as below :
Weight improved and lower extremity edema improved. Off of oxygen. But still slightly tachypneic. His chest x-ray shows persistent moderate left pleural effusion. Also noted on the repeat x-ray is a vertically oriented opacity in the medial
right upper lung that this into the right superior mediastinum, right lower lobe opacity with small pleural effusion. He is not acting like infectious pneumonia. No fever, no leukocytosis. He does have a cough. In view of weight loss and about
chest x-ray findings will proceed further with more diagnostic testing-obtain a chest CT with IV contrast on the left diagnostic thoracentesis.
Continue diuretics per cardiology.
Total time spent on today's encounter was 52 minutes which included time spent in counseling the patient/family regarding diagnosis and treatment plan as listed above, goals of care, and symptom management. Case was discussed with nursing staff,
specialists, and care coordinators/case management. All labs and imaging personally reviewed by me. Remainder the time spent in detailed review of previous records, lab data, imaging, and other medical provider documentation.
Original Note:
Today's Communication/Plan
-
CT chest with IV contrast
IR consult-thoracocentesis with pleural fluid analysis
N.p.o.
Start maintenance fluids
Input output monitoring
Assessment / Plan
Assessment / Plan
Impression
Patient is an 84-year-old male, who presented with cough, shortness of breath and hypoxia along with change in mental status from his independent living facility. His last hospitalization in 03/05/2025, he weighed 65 EKGs approximately, on this
admission he weighs 74 kg's. JVD present, bilateral pedal edema present, bilateral decreased breath sounds at lung bases consistent with acute on chronic heart failure with preserved ejection fraction. In addition noticed increased work of
breathing and tachycardia with irregular heart rhythm. Chest x-ray done in the ER, pleural effusion bilaterally left more than right. On his labs he has metabolic alkalosis. Will keep an eye on electrolytes, creatinine and bicarb while diuresing
the patient.
Chest x-ray repeated (03/14, persistent left-sided pleural effusion, with compressive left lung atelectasis, right lung homogeneous appearance at the lung base consistent with most likely pneumonia, needs further evaluation)
Assessment/plan
#Dysphagia
Nurse reported patient coughing while swallowing food, made n.p.o., speech evaluation done, recommended soft and bite-size food
Today video swallowing study done, silent aspiration-report pending-most likely pharyngeal origin
Suspect probable neurological issue-Repeat head CT-Repeat head CT-did not show any acute intracranial bleed/mass-NT acetylcholine receptor antibody/anti-MuSK antibody pending
Speech evaluation done yesterday, did not do well with IDSSI 4 and and there is new homogeneous right lower lung appearance, would make the patient n.p.o. and do CT chest with IV contrast
#Acute on chronic heart failure with preserved ejection fraction
Presented with worsening dyspnea, JVD, bilateral pitting edema and decreased breath sounds
Responding to IV Lasix-on Lasix at home-cardiology recs appreciated-shifted to oral Lasix 40 mg daily by cardiology today
Continue input/output monitoring currently in negative balance of 90 mL
Admitted with a weight of 158 pounds currently, currently weighs approximately 147 pounds, lost 3 pounds since yesterday
Cardiology consult appreciated-low potassium/orthostatic vitals-hold fludrocortisone, continue midodrine with holding parameters
Last echo November 2024 ejection fraction 55 to 60%
Sodium and fluid restriction
#Permanent atrial fibrillation/Supratherapeutic INR
Continue metoprolol
Warfarin on hold-received vitamin K 2.5 mg yesterday for an INR of 7.8-current INR 1.4
Heart rate well-controlled, patient in sinus rhythm
#Metabolic alkalosis
Patient has rapid shallow breathing, elevated bicarb, although breathing on room air
Bicarb remains relatively stable, continue to monitor
#Left-sided pleural effusion
Repeat chest x-ray after diuresis and loss of approximately 10 pounds since admission-still has persistent left-sided pleural effusion with compressive left-sided lung atelectasis
IR consult thoracocentesis-send out fluid for Gram stain, culture, protein, glucose, albumin, LDH and cytology
#Essential hypertension-presented with hypertensive urgency, continue home medications as able, use IV hydralazine on as-needed basis
#Leukocytosis-resolved
DVT prophylaxis-SCDs
CODE STATUS-full code
Anticipated Discharge: > 48 hours
Subjective/Interval History
-
Date of Service: March 14, 2025
Complains of persistent cough, with mucus, no chest pain and remains afebrile
Has difficulty with swallowing
Objective Data
-
Labs:
Laboratory Results
03/14/25
06:43
PT 17.7 H
INR 1.40
Sodium 141
Potassium 3.8
Chloride 103
Carbon Dioxide 39 H
BUN 18
Creatinine 0.6 L
Glucose 131 H
Calcium 8.3 L
Vital Signs:
Vital Signs
Temp Pulse Resp BP Pulse Ox
98.2 F 90 24 162/93 94
03/14/25 07:35 03/14/25 07:35 03/14/25 07:35 03/14/25 07:35 03/14/25 07:35
I&O
03/13/25 03/14/25 03/15/25
06:59 06:59 06:59
Intake Total 120 / 120 1560 / 1560
Output Total 750 / 750 1650 / 1650
Balance -630 / -630 -90 / -90
Review of Systems
-
All other systems: Reviewed and negative
Physical Exam
-
General: Appears Chronically Ill, Cachectic and Other (Breathing on room air)
Respiratory: Crackles (Bilateral lung bases) and Decreased Breath Sounds
Cardiac: S1/S2, Irregular Rhythm and Tachycardic
GI: Soft, Nontender, Nondistended and Normal Bowel Sounds
Musculoskeletal: No Clubbing, No Cyanosis, No Edema and Other (Bilateral venous stasis dermatitis)
Neuro: Awake, Oriented and Nonfocal/Grossly Intact
Psych: Calm
--- NOTE | 2025-03-14 09:26 | CON.NEURO4 ---
Addendum entered and electronically signed by Samuel Herman MD 03/14/25 16:43:
Studies reviewed.
I have personally examined the patient. I reviewed and agree with the LITHOPLATE MAKER's Note.
My addenda:
Awake, alert, interactive. No acute distress.
Speech dysarthric, and hypophonic.
Follows 2-step requests w/ mild difficulty. No tremor.
Extra-ocular movements grossly intact.
Facial movements full and symmetric. Hearing intact to normal conversational volume.
Normal UE movements bilaterally.
Neck: full ROM.
Chest: no dyspnea
Heart: no JVD
Ext: (-) Clubbing, (-) Cyanosis, (-) Edema
IMPRESSIONS/RECOMMENDATIONS:
Subacute onset of dysphagia
Differential diagnosis includes swallowing apraxia, myasthenia gravis, structural in addition to swallowing. No evidence of parkinsonism at this time. The presence of orthostasis suggest an autonomic dysfunction
As outpatient, check EMG with repetitive stimulation study
Check acetylcholine receptor antibodies
Would continue warfarin to reduce risk of future stroke
Provide abdominal binder to prevent orthostatic hypotension
D/W patient
Will continue to follow pending results.
Original Note:
Documented by User: Kelle Vallejo NP 03/14/25 13:39
Consultation - Neurology 4
-
CONSULTING PHYSICIAN: Samuel Herman MD
REFERRING PHYSICIAN: Hospitalists/Dr. Greenberg Resident
DICTATED BY: HILL Prasad
DATE/TIME OF REQUEST: 03/13/25
DATE/TIME OF CONSULTATION: 03/14/25
Reason for Consultation: Dysphagia
History of Present Illness:
This is an 84-year-old right-handed male who has presented to the hospital on 03/11/25 with report of sliding out of bed, confusion, and oxygen saturation in the 80's at his living facility. Patient is a poor historian and this information is
obtained from him and also medical records. CT head was obtained on arrival and is negative for any acute findings, demonstrates old right parietal lobe ischemic infarcts. He is taking Coumadin for permanent Afib and his INR was 6.16 on arrival. CXR
demonstrates a left pleural effusion and possible pneumonia. Patient was noted to have coughing with oral intake, prompting speech therapy evaluation and video swallow study. Barium video swallow demonstrates airway aspiration prompting Neurology
consult for concern of neurological source of dysphagia. Patient reports that about one week ago he noticed difficulty swallowing solid foods and had to start eating more soft things. He notes difficulty swallowing with all meals but most noticeably
at dinner. He denies any diplopia, dizziness, vision changes, speech difficulty, numbness, or focal weakness. He notes chronic difficultly walking up stairs. He has a history of a right parietal ischemic stroke but denies any previous issues with
swallowing.
Past Medical History: Permanent Afib (Coumadin), right parietal ischemic stroke, HTN, HLD, HFpEF, orthostatic hypotension, cognitive impairment
Surgical History: b/l cataract removal, hernia repair
Family History: Reviewed and noncontributory.
Social History: Denies tobacco, alcohol, and illicit drug use.
Allergies: Oxybutynin.
Home Medications: See below.
Review of Symptoms:
Patient denies any fever, headache, chest pain, shortness of breath, GI or symptoms.
�Per the HPI.�All systems are reviewed negative except above.
Physical Exam:
The patient is afebrile, abdomen is nondistended, breathing is unlabored, skin is cool and dry, PVD discoloration BLE.
NIH Stroke Scale:
I performed the NIH stroke scale on the patient on 03/14/25 at 1000. The patient scored 1 points on the NIH stroke scale assessment, which were assigned as follows: See below.
Neurologic Examination:
The patient is awake, alert and oriented to person, place, and time. Unable to recall where he lives. He is able to follow commands and answer questions appropriately. There is no aphasia. Mild dysarthria and hypophonia. On cranial nerve
assessment, pupils are 3 mm bilateral, round and reactive to light and accommodation. Visual whitley are full to finger wiggle. Extraocular movements are intact. Facial sensations are intact and bilaterally symmetrical, there is no facial asymmetry.
Hearing is mildly diminished bilaterally to normal conversation volume. Tongue palate and uvula are midline. Sternocleidomastoid strengths are full bilaterally. Motor strengths are 5/5 bilateral upper and lower extremities on medical research
[place] scale. Neck flexion 5-/5, neck extension 5/5. There is no drift or involuntary movement noted. Deep tendon reflexes are 1+ bilateral upper and lower extremities and Babinski is absent bilaterally. Sensations of touch, temperature and
vibration are intact and bilaterally symmetrical. There was no extinction noted on double simultaneous stimulation. Coordination is intact by finger to nose bilaterally.
Lab Results: See below.
Neuro Imaging:
1. CT Head 03/11/25: No acute intracranial abnormalities. Small old right posterior parietal lobe infarct again seen. Findings again seen compatible with diffuse cortical atrophy with nonspecific white matter changes as described above.
2. CT Head 03/11/25: No acute intracranial abnormality identified. Unchanged small chronic right temporal and right parietal infarcts
Differentials for the patient's presentation include:
1. New onset dysphagia and dysarthria; etiology possibly myasthenia gravis vs ischemic stroke.
2. Permanent Afib on Coumadin.
3. Old right parietal ischemic infarct.
Patient has the following risk factors for their symptoms: Hx stroke, Coumadin usage, advanced age
Recommendations:
-Continue Coumadin for stroke prevention.
-Myasthenia antibodies pending.
-Start pyridostigmine 30mg TID, if no response from this would order MRI brain noncontrast.
-Continue speech therapy. Aspiration precautions.
-Will follow.
Discussed patient care with: Dr. Herman, the patient
Vital Signs and Labs
-
Vital Signs and Labs:
Vital Signs
Temp Pulse Resp BP Pulse Ox
97.8 F 90 20 152/83 95
03/14/25 11:11 03/14/25 12:01 03/14/25 11:11 03/14/25 12:01 03/14/25 11:11
Lab Results
03/13/25 06:28
03/14/25 06:43
PT 17.7 Sec (11.4-14.6) H 03/14/25 06:43
INR 1.40 03/14/25 06:43
APTT 83.4 Sec (23.4-35.0) H 03/12/25 06:44
Sodium 141 mmol/L (135-145) 03/14/25 06:43
Potassium 3.8 mmol/L (3.5-5.1) 03/14/25 06:43
BUN 18 mg/dl (9-20) 03/14/25 06:43
Glucose 131 mg/dl (70-99) H 03/14/25 06:43
Calcium 8.3 mg/dl (8.4-10.2) L 03/14/25 06:43
Dyz-E-Vulnmfcylem Pept 5870 pg/ml 03/11/25 10:11
Medications
-
Active Medications
Generic Name Dose Route Start Last Admin
Trade Name Freq PRN Reason Stop Dose Admin
Acetaminophen 650 mg 03/11/25 17:44
Acetaminophen 325 Mg Tablet PO 04/08/25 17:43
Q4HPRN PRN
mild pain/RENAE/temp> 100.4F
Artificial Tears 2 drops 03/11/25 18:00 03/14/25 10:00
Artificial Tears Pf (Refresh) 10 Drop Droperette BOTH EYES 04/08/25 17:59 2 drops
DAILY NILE Administration
Bisacodyl 10 mg 03/11/25 17:44
Bisacodyl 10 Mg Rectal Suppository RECTAL 04/08/25 17:43
[id number] PRN
constipation
Finasteride 5 mg 03/11/25 17:44 03/14/25 10:00
Finasteride 5 Mg Tablet PO 04/08/25 17:43 5 mg
DAILY NILE Administration
Fludrocortisone Acetate 0.1 mg 03/12/25 08:00 03/12/25 09:17
Fludrocortisone Acetate 0.1 Mg Tablet PO 04/09/25 07:59 Not Given
On Hold: 03/12/25 11:46 DAILY NILE
Furosemide 40 mg 03/12/25 08:00 03/14/25 09:59
Furosemide 40 Mg (10 Mg/Ml) 4 Ml Vial IV 04/09/25 07:59 40 mg
DAILY NILE Administration
Guaifenesin/Dextromethorphan 5 ml 03/11/25 17:55
Guaifenesin/Dextromethorphan 200 Mg/10 Ml Cup PO 04/08/25 17:54
Q4HPRN PRN
cough
Hydralazine HCl 5 mg 03/11/25 18:36 03/11/25 18:42
Hydralazine 20 Mg/Ml Vial IV 04/08/25 18:35 5 mg
Q4HPRN PRN Administration
sbp>160
Ferric Sodium Gluconate 110 mls @ 110 mls/hr 03/12/25 14:00 03/13/25 15:54
Complex 125 mg/ Sodium IV 03/16/25 14:59 110 mls
Chloride DAILY@1400 NILE Administration
Dextrose/Sodium Chloride 1,000 mls @ 30 mls/hr 03/14/25 14:00
D5/0.45%Nacl IV
.Q24H NILE
Melatonin 3 mg 03/11/25 22:00 03/13/25 21:10
Melatonin 3 Mg Tablet PO 04/08/25 21:59 3 mg
HS NILE Administration
Metoprolol Succinate 25 mg 03/11/25 22:00 03/13/25 21:10
Metoprolol 25 Mg Extended Release Tablet PO 04/08/25 21:59 25 mg
HS NILE Administration
Midodrine 15 mg 03/11/25 17:44 03/14/25 12:01
Midodrine 5 Mg Tablet PO 04/08/25 17:43 Not Given
TID@0800,1200,1700 NILE
Pantoprazole Sodium 20 mg 03/11/25 17:44 03/14/25 10:00
Pantoprazole 20 Mg Delayed Release Tablet PO 04/08/25 17:43 20 mg
DAILY NILE Administration
Polyethylene Glycol 17 grams 03/11/25 17:44
Polyethylene Glycol Powder 17 Grams Packet PO 04/08/25 17:43
DAILYPRN PRN
constipation
Senna/Docusate Sodium 1 tablet 03/11/25 17:44
Docusate W/Senna (Maria Fernanda-Colace) Tablet PO 04/08/25 17:43
BIDPRN PRN
constipation
Sennosides 17.2 mg 03/11/25 22:00 03/13/25 21:09
Sennosides (Senokot) 8.6 Mg Tablet PO 04/08/25 21:59 17.2 mg
HS NILE Administration
Sodium Chloride 0 flush 03/11/25 18:00 03/14/25 10:01
Sodium Chloride 0.9% (Flush) Syringe IV 04/08/25 17:59 2 flush
PER PROTOCOL NILE Administration
Warfarin Sodium 5 mg 03/13/25 18:00 03/13/25 18:31
Warfarin 5 Mg Tablet PO 03/18/25 17:59 5 mg
QPM NILE Administration
Home Medications
�Medication �Instructions �Recorded
fludrocortisone 0.1 mg tablet 0.1 mg PO DAILY orthostatic 07/08/24
hypotension
metoprolol succinate 25 mg 25 mg PO HS Blood Pressure 07/08/24
tablet,extended release 24 hr
polyethylene glycol 3350 17 gram 17 g PO DAILYPRN PRN constipation 07/08/24
oral powder packet (Miralax)
sennosides 8.6 mg tablet (senna) 17.2 mg PO HS Constipation 07/08/24
dextran 70-hypromellose (PF) 0.1 2 drp BOTH EYES DAILY Eye Condition 12/05/24
%-0.3 % eye drops in a dropperette
(Artificial Tears (PF))
melatonin 3 mg tablet 3 mg PO HS Sleep 12/05/24
acetaminophen 325 mg tablet 650 mg PO Q4HPRN PRN 03/11/25
pain/temp>100.4
dextromethorphan 5 mg-guaifenesin 10 ml PO Q4HPRN PRN cough 03/11/25
50 mg/5 mL oral liquid (Tussin DM)
doxycycline hyclate 100 mg capsule 100 mg PO BID cellulitis 03/11/25
finasteride 5 mg tablet 5 mg PO DAILY bph 03/11/25
midodrine 5 mg tablet 15 mg PO TID@0800,1200,1700 03/11/25
orthostasis
pantoprazole 20 mg tablet,delayed 20 mg PO DAILY Gastrointestinal 03/11/25
release Issue
warfarin 5 mg tablet 5 mg PO QPM Blood Clot 03/11/25
Prevention/Tx
NIH Stroke Score
Subsequent NIH Scale
Date of Subsequent NIH Scale: 03/14/25
Time of Subsequent NIH Scale: 10:00
NIH Stroke Score
Level of Consciousness: 0 - Alert
LOC Questions: 0-Answers both correctly
LOC Commands: 0-Performs both correctly
Best Horizontal Gaze: 0-Normal
Visual Whitley: 0=Normal, no visual loss
Facial Palsy: 0=Normal, symmetrical
Motor - Right Arm: 0=No drift 10 seconds
Motor - Left Arm: 0=No drift 10 seconds
Motor - Right Le-No drift 5 seconds
Motor - Left Le-No drift 5 seconds
Limb Ataxia: 0-Absent
Sensation: 0-Normal
Best Language: 0-No aphasia
Dysarthria: 1-Mild slurring
Extinction and Inattention: 0-No abnormality
NIH Total Score:: 1

Documented by User: Samuel Herman MD 03/14/25 16:35
NIH Stroke Score
NIH Stroke Score
NIH Total Score:: 1
--- NOTE | 2025-03-14 09:54 | W.PN.CD ---
Today's Communication / Plan
-
Lasix 40 mg PRN for weight gain
No further recommendations; please call with questions.
Impression / Plan
-
Acute on chronic HFpEF:
-not on diuretic at home; volume exam does not seem to have significant volume but seems to be improving on IV lasix
-CXR with pleural effusions L>R
-BNP 8700
-Lasix 40 mg PO PRN for weight gain; not clear that this contributed to fall
-weight trending down. admit 72.3 kg, today 68.6 kg
-Echo in 11/2024 EF 55-60
-Sodium and fluid restrictions.
permanent AF: rate controlled
-INR on admit supratherapeutic. warfarin being held. INR today 7.84 now <2.0
- restart warfarin
Orthostatic hypotension
-cont midodrine would hold florinef BPs appear improved
Physical Exam
Vital Signs/Labs
Vital Signs
Temp Pulse Resp BP Pulse Ox
98.2 F 90 24 162/93 94
03/14/25 07:35 03/14/25 07:35 03/14/25 07:35 03/14/25 07:35 03/14/25 07:35
03/13/25 03/14/25 03/15/25
06:59 06:59 06:59
Actual Weight 150 lb 14.4 oz 148 lb 8 oz
03/13/25 06:28
03/14/25 06:43
PT 17.7 Sec (11.4-14.6) H 03/14/25 06:43
INR 1.40 03/14/25 06:43
APTT 83.4 Sec (23.4-35.0) H 03/12/25 06:44
Magnesium 1.8 mg/dl (1.6-2.3) 03/13/25 06:28
03/11/25
10:11
Icy-Y-Ybimlqlrqij Pept 5870
LAB Results
03/12/25
06:44
Troponin I < 0.012
Physical Exam
Constitutional: No acute distress
EENT: Anicteric
Cardiovascular: Rhythm/rate is irregular
Respiratory: Respiratory effort normal and Lungs clear to auscul.
GI: Soft
Neuro/Psych: Alert and Oriented
Data Reviewed
-
Date of Service: March 14, 2025
EKG: Tracing Personally Visualized and interpreted (af)
Echo: Report Reviewed by me
Labs: Labs Reviewed by me
[2025-03-14] MEDS: LASIX 40 MG IV (09:59)
[2025-03-14] MEDS: PROSCAR 5 MG PO (10:00)
[2025-03-14] MEDS: ProAmatine 15 MG PO (10:00)
[2025-03-14] MEDS: REFRESH EYE DROPS (PF) 2 DROPS BOTH EYES (10:00)
[2025-03-14] MEDS: PROTONIX 20 MG PO (10:00)
[2025-03-14] MEDS: FLUSH (NSS) 2 FLUSH IV (10:01)
--- NOTE | 2025-03-14 10:43 | CM ---
Addendum entered by Jason Nicole 03/14/25 16:12:
Received message from Chanda who confirmed d/c plan is for patient to return to and sign onto hospice. [facility] is the preferred provider and is asking if CM can arrange for [facility] to come visit patient to evaluate prior to d/c.
CM placed referral in [facility]
Addendum entered by Jason Nicole 03/14/25 11:33:
Spoke w/ Chanda who shared she is agreeable to patient signing onto hospice upon return to . She stated patient is at his end stage and wants to start honoring his wishes. CM discussed medicare coverage w/ hospice care, CM shared that
hospice care is not 09/05 and if feasible, she can private pay for aides if it is needed for patient.
Chanda stated she will discuss w/ Shi to coordinate hospice prior to d/c
Confirmed w/ Nicole/Jagjit, patient is not current w/ services. Last service was in 2022 when patient was still in his home in [place].
Original Note:
Spoke w/ patient's daughter, Chanda, regarding d/c plan as therapy is rec SNF. Patient resides at [facility] w/ spouse in assisted living.
Chanda shared she does not want patient to go to rehab, recently finished therapy at a rehab 7 weeks ago. Chanda stated patient's BP is not managed well at rehab and wants him to return to . Chanda stated she spoke w/ Shi at [facility]
and made her aware that she doesn't want rehab for patient at d/c.
CM spoke w/ Shi who informed that the conversation w/ Chanda was that she can choose for patient to not go to rehab and can return to facility but only if she agreed to place patient on hospice. Shi stated patient will cont to go to the
hospital for CHF. Shi shared [facility] but can further discuss w/ Chanda if she is no longer agreeable.
CM attempted call again to Chanda to update, left message.
Plan: Return to [facility].
Daughter and [facility] will need to confirm if patient will return on hospice or not
[2025-03-14] MEDS: ProAmatine PO ×2 (12:01→17:30)
--- NOTE | 2025-03-14 13:21 | PTCARENOTE ---
Pt at CT scan. Provided report to Rosa Maria in IR. Pt will go to IR after he is done in CT scan.
[2025-03-14 14:18] LABS: HDL Cholesterol 25 mg/dl; LDL Cholesterol, Calculated 40 mg/dl; Total Cholesterol 77 mg/dl (50-199); Triglyceride 64 mg/dl (10-149); Very Low Density Lipoprotein 12 mg/dl (0-30)
--- NOTE | 2025-03-14 15:15 | PTCARENOTE ---
Received report from Rosa Maria in IR. Pt arrived back to rm 409-2, AAOx2, confused on time. Denies any pain/SOB. Breath sounds diminished (slightly), SPO2 94% on RA. Bandaid CDI to left lateral back. Call zamarripa within reach, will monitor.
[2025-03-14 15:58] LABS: TSH Reflex To Free T4 0.37 uIU/ml (0.47-4.68)
[2025-03-14 16:15] LABS: Body Fluid pH 7.54
[2025-03-14] MEDS: FERRLECIT 110 MG IV (16:20)
[2025-03-14] MEDS: D5/0.45%NACL 1000 IV (16:21)
[2025-03-14 16:23] LABS: Body Fluid Mononuclear 88.6 %; Body Fluid Polymorphonuclear 11.4 %; Body Fluid WBC 696 /CUMM
[2025-03-14] MEDS: MESTINON 30 MG PO ×2 (16:23→22:33)
[2025-03-14 16:25] LABS: Free T4 1.79 ng/dl (0.78-2.19)
[2025-03-14 16:29] LABS: Body Fluid Albumin < 1.0 g/dl; Body Fluid Glucose 150 mg/dl; Body Fluid LDH 115 U/L; Body Fluid Protein 2.1 g/dl
[2025-03-14 16:33] LABS: Folate 7.2 ng/ml (2.76-20); Vitamin B12 586 pg/ml (239-931)
[2025-03-14 17:05] LABS: Body Fluid Second Tech EYM
[2025-03-14] MEDS: COUMADIN 5 MG PO (18:03)
[2025-03-14] MEDS: SENOKOT 17.2 MG PO (22:32)
[2025-03-14] MEDS: MELATONIN 3 MG PO (22:34)
[2025-03-14] MEDS: TOPROL XL 25 MG PO (22:38)
[2025-03-15 04:11] VITALS: BP 132/77; BMI 18.8
[2025-03-15 07:18] LABS: Hematocrit 34.1 % (39.0-52.0); Hemoglobin 10.7 g/dL (13.0-18.0); Mean Corp Hgb Conc. 31.4 g/dL (33.0-37.0); Mean Corpuscular Hgb 31.5 pg (27.0-31.0); Mean Corpuscular Volume 100.3 fL (80.0-94.0); Mean Platelet Volume 9.6 fL (7.4-10.4); Platelet Count 318 10^3/uL (130-400); Red Cell Dist. Width 13.4 % (11.5-14.5); White Blood Cell Count 8.5 10^3/uL (4.8-10.8)
[2025-03-15 07:24] LABS: INR 2.06; PT 23.7 Sec (11.4-14.6)
[2025-03-15 07:54] VITALS: BP 139/79
[2025-03-15 08:13] LABS: Blood Urea Nitrogen 15 mg/dl (9-20); Calcium 8.1 mg/dl (8.4-10.2); Carbon Dioxide 34 mmol/L (22-30); Chloride 103 mmol/L (98-107); Estimated Creatinine Clearance 70 ml/min; Glucose 130 mg/dl (70-99); Magnesium 1.7 mg/dl (1.6-2.3); Potassium 3.4 mmol/L (3.5-5.1); Sodium 139 mmol/L (135-145); eGFR > 60.00
[2025-03-15 08:39] LABS: LDH 163 U/L (120-246)
[2025-03-15] MEDS: LASIX 40 MG IV (09:09)
[2025-03-15] MEDS: PROTONIX 20 MG PO (09:10)
[2025-03-15] MEDS: PROSCAR 5 MG PO (09:10)
[2025-03-15] MEDS: MESTINON 30 MG PO ×3 (09:10→21:06)
[2025-03-15] MEDS: FLUSH (NSS) 1 FLUSH IV ×2 (09:10→13:36)
[2025-03-15] MEDS: ProAmatine PO ×3 (09:12→17:40)
[2025-03-15] MEDS: REFRESH EYE DROPS (PF) 2 DROPS BOTH EYES (09:13)
--- NOTE | 2025-03-15 09:41 | W.PN.HOSP.TC ---
Addendum entered and electronically signed by Blake Borden MD 03/15/25 15:07:
Seen and examined by me independently in collaboration with the medical auditor.
Lab data and imaging data reviewed.
Addendum as below :
Patient feels improved with the breathing. Not on oxygen. Remains off of it. Improved lower extremity edema and weight. Continue with diuresis. CT of the chest which was requested for evaluation of vertical density on the right superior
mediastinum shows multichamber cardiac dilatation with significant IVC dilatation. He had an echocardiogram in November of this year which showed normal LV and RV size and function but there was a right atrial and IVC dilatation and I could not
understand etiology for that with normal RV size function and no pulmonary hypertension. With no multichamber dilatation will repeat an echocardiogram.
Tolerating modified diet. Appreciate neurology input-with myasthenia gravis and differential of dysphagia he is getting a Mestinon trial.
Patient feels improved but his social situation is tough. He lives with his who is getting progressively declined cognitively and needs help. Daughter lives close by. Unclear if he can manage his current disease process with his current
setting. If prognosis is poor he want to relook at his goals of care and even consider hospice which apparently is also being thought about by his daughter. He also tells me that if there is a medical treatment which can keep the symptoms under
control and he has chance of having a good quality of life we would want to consider that .
Left message to daughter regarding discussions about goals of care.
Total time spent on today's encounter was 52 minutes which included time spent in counseling the patient/family regarding diagnosis and treatment plan as listed above, goals of care, and symptom management. Case was discussed with nursing staff,
specialists, and care coordinators/case management. All labs and imaging personally reviewed by me. Remainder the time spent in detailed review of previous records, lab data, imaging, and other medical provider documentation.
Original Note:
Today's Communication/Plan
-
Called the daughter to assess goals of care
Continue diuresis
Echocardiography
Follow cytology
Assessment / Plan
Assessment / Plan
Impression
Patient is an 84-year-old male, who presented with cough, shortness of breath and hypoxia along with change in mental status from his independent living facility. His last hospitalization in 03/05/2025, he weighed 65 EKGs approximately, on this
admission he weighs 74 kg's. JVD present, bilateral pedal edema present, bilateral decreased breath sounds at lung bases consistent with acute on chronic heart failure with preserved ejection fraction. In addition noticed increased work of
breathing and tachycardia with irregular heart rhythm.
Admitted the patient for acute on chronic heart failure
Assessment/plan
#Dysphagia most likely secondary to myasthenia gravis
Has been having difficulties with swallowing for last 3 weeks, becomes more prominent at dinnertime
Denies any diplopia, dizziness or muscle weakness
Had been having recurrent falls and orthostatic hypotension
Consulted neurology for concerns about myasthenia gravis
Anticholinergic antibody and antimusk antibody pending
Neurology consult appreciated-started the patient on pyridostigmine 30 mg 3 times daily
Patient feels much improved today in terms of swallowing
Neurology plans to do EMG and repetitive nerve stimulation study on outpatient basis
#Acute on chronic heart failure with preserved ejection fraction
Presented with worsening dyspnea, JVD, bilateral pitting edema and decreased breath sounds
Responding to IV Lasix-on Lasix at home-cardiology recs appreciated-shifted to oral Lasix 40 mg daily by cardiology today
Continue input/output monitoring currently in negative balance of 90 mL
Admitted with a weight of 158 pounds currently, currently weighs approximately 145 pounds, lost 2 pounds since yesterday
Cardiology consult appreciated-low potassium/orthostatic vitals-hold fludrocortisone, continue midodrine with holding parameters
Last echo November 2024 ejection fraction 55 to 60%
CT chest with IV contrast done--Dilatation of all of the cardiac chambers as well as the inferior vena cava. Moderate bilateral pleural effusions. Findings worrisome for congestive heart failure
Repeat echocardiography
sodium and fluid restriction
Patient does not want hospice at this time and would like to recover if he can
#Permanent atrial fibrillation/Supratherapeutic INR
Continue metoprolol
Presented with supra therapeutic INR, warfarin was briefly on hold, now resumed, current INR 2.06
Heart rate well-controlled, patient in sinus rhythm
#Metabolic alkalosis
Patient has rapid shallow breathing, elevated bicarb, although breathing on room air
Bicarb remains relatively stable, continue to monitor
#Left-sided pleural effusion
Thoracocentesis done, drained about 950 mL of straw-colored nvace-gvsthejnl-athugwwj pending
Patient breathing better
#Essential hypertension-presented with hypertensive urgency, continue home medications as able, use IV hydralazine on as-needed basis
#Leukocytosis-resolved
DVT prophylaxis-SCDs
CODE STATUS-full code
Anticipated Discharge: 24 - 48 hours
Subjective/Interval History
-
Date of Service: March 15, 2025
Reports much improvement in breathing since having the fluid removed from the lung, breathing on room air
Appears very weak and fragile
Tolerating [id number] diet well with moderately thick liquids
Objective Data
-
Labs:
Laboratory Results
03/15/25
06:59
WBC 8.5
Hgb 10.7 L
Hct 34.1 L
Plt Count 318
PT 23.7 H
INR 2.06
Sodium 139
Potassium 3.4 L
Chloride 103
Carbon Dioxide 34 H
BUN 15
Creatinine 0.7
Glucose 130 H
Calcium 8.1 L
Vital Signs:
Vital Signs
Temp Pulse Resp BP Pulse Ox
97.9 F 79 18 139/79 96
03/15/25 07:54 03/15/25 09:12 03/15/25 07:54 03/15/25 09:12 03/15/25 08:59
I&O
03/14/25 03/15/25 03/16/25
06:59 06:59 06:59
Intake Total 1560 / 1560 90 / 90
Output Total 1649 / 1649 650 / 650
Balance -90 / -90 -560 / -560
Review of Systems
-
All other systems: Reviewed and negative
Physical Exam
-
General: Appears Chronically Ill and Other (Very weak and fragile, pale appearing)
Respiratory: Crackles (Bilateral lower lobe) and Decreased Breath Sounds
Cardiac: S1/S2, Irregular Rhythm and Tachycardic
GI: Soft, Nontender and Normal Bowel Sounds
Musculoskeletal: No Clubbing, No Cyanosis, No Edema and Other (Bilateral venous stasis dermatitis)
Skin: Warm, Dry and Other (Multiple seborrheic keratosis lesions)
Neuro: Awake and AO x 3
Psych: Depressed
[2025-03-15] MEDS: KCL ELIXIR 40 MEQ PO (10:00)
[2025-03-15 10:42] VITALS: BMI 18.8
[2025-03-15 12:15] VITALS: BP 128/69; BP 131/72; PULSE 94; PULSE 96
--- NOTE | 2025-03-15 12:48 | CM ---
CM received call from Mauricio [phone] with [facility] stating that patient daughter was planning to meet with them to sign patient on to hospice. Patient DME would be delivered tomorrow pending removal of patient pack size bed and a bed for
.
CM sent tt to physician who indicated that patient was to discuss with him choice for next steps today and physician would update CM.
Plan; pending physician discussion
--- NOTE | 2025-03-15 13:35 | W.PN.NEURO.1 ---
Addendum entered and electronically signed by Samuel Herman MD 03/15/25 16:34:
Studies reviewed.
I have personally examined the patient. I reviewed and agree with the CAR BODY INSPECTOR's Note.
My addenda:
Awake, alert, interactive. No acute distress.
Speech mildly hoarse and mildly dysarthric.
No tremor.
Extra-ocular movements grossly intact.
Facial movements full and symmetric. Hearing intact to normal conversational volume.
Normal UE movements bilaterally.
Neck: full ROM.
Chest: no dyspnea
Heart: no JVD
Ext: (-) Clubbing, (-) Cyanosis, (-) Edema
IMPRESSIONS/RECOMMENDATIONS:
Subacute onset of dysphagia
Unclear exact etiology which would include the possibility of apraxia or myasthenia gravis. There is the possibility of an autonomic dysfunction producing symptomatology
Provide abdominal binder for orthostatic hypotension
Await pending results
Consider MRI of brain if patient is not to be placed under hospice
D/W patient
Will continue to follow peripherally.
Original Note:
Today's Communication / Plan
-
.
Neuro Assessment/Plan
Assessment
Subacute onset of dysphagia
Differential diagnosis includes swallowing apraxia, myasthenia gravis, structural brain abnormality contributing to swallowing dysfunction. No evidence of parkinsonism at this time. The presence of orthostasis suggest an autonomic dysfunction
Plan
Acetylcholine receptor antibodies, pending
Would continue warfarin to reduce risk of future stroke
Provide abdominal binder to prevent orthostatic hypotension
Will defer MRI brain imaging and outpatient EMG if hospice is the current plan
Will follow as-needed.
Subjective/Objective
Subjective Data
Date of Service: March 15, 2025
Patient underwent thoracentesis last evening, tolerated the procedure well. He doesn't report a noticeable difference since starting pyridostigmine 30mg three times per day. Denies diarrhea. He reports that the plan of care now is for hospice.
Objective Data
Vital Signs
Temp Pulse Resp BP Pulse Ox
97.9 F 94 18 131/72 95
03/15/25 12:16 03/15/25 12:55 03/15/25 12:16 03/15/25 12:55 03/15/25 12:16
Lab Results
03/15/25 06:59
03/15/25 06:59
PT 23.7 Sec (11.4-14.6) H 03/15/25 06:59
INR 2.06 03/15/25 06:59
APTT 83.4 Sec (23.4-35.0) H 03/12/25 06:44
Sodium 139 mmol/L (135-145) 03/15/25 06:59
Potassium 3.4 mmol/L (3.5-5.1) L 03/15/25 06:59
BUN 15 mg/dl (9-20) 03/15/25 06:59
Glucose 130 mg/dl (70-99) H 03/15/25 06:59
Calcium 8.1 mg/dl (8.4-10.2) L 03/15/25 06:59
Kyu-L-Gunniuxejkk Pept 5870 pg/ml 03/11/25 10:11
LDL Cholesterol, Calc 40 mg/dl 03/14/25 06:43
Vitamin B12 586 pg/ml (239-931) 03/14/25 06:43
Patient Allergies
oxybutynin Allergy (Verified 07/08/24 10:24)
Unknown
Review of Systems
-
History Source: Patient
EENT: Swallowing Difficulty; Negative Decreased Vision
Respiratory: Cough; Negative Trouble Breathing
Cardiac: Negative Chest Pain or Palpitations
Abdomen/GI: Negative Nausea, Vomiting or Diarrhea
Neuro: Weakness and Speech Problem; Negative Dizzy, Headache, Numbness, Ataxia or Tremors
Physical Exam
-
General: No Apparent Distress
HEENT: Normocephalic and Atraumatic
Neck: No Bruits Bilaterally and Full Range of Motion
Respiratory: No Dyspnea
Extended Neurological Exam
Mood & Affect: Depressed
Attention Span & Concentration: Awake, Alert and Interactive
Memory: Unremarkable and Able to Recall
Tremor: Hand Tremor Absent and Head Tremor Absent
Involuntary Movement: None
Speech: Dysarthric (hypophonia)
Cranial Nerve II: Left Eye: Visual Whitley Grossly Intact
Cranial Nerve II: Right Eye: Visual Whitley Grossly Intact
Cranial Nerves III, IV, : Extraocular Movement: Extraocular Movement Full in all Directions
Cranial Nerve VII: Facial Symmetry: Normal Facial Symmetry
Cranial Nerve VIII: Hearing: Unremarkable Hearing to Normal Conversational Volume
Cranial Nerves IX, X: Palate Movement: Palate Elevation Symmetric
Cranial Nerve XI: Shoulder Shrug: Unremarkable
Cranial Nerve XII: Tongue Protusion: Midline
Muscle Strength, Overall: Spontaneously Moves
Data Reviewed
-
Orthostatic Testing: Report Reviewed
Labs: Report Reviewed
Reviewed with: Physician and Patient
Medications
-
Active Medications
Generic Name Dose Route Start Last Admin
Trade Name Freq PRN Reason Stop Dose Admin
Acetaminophen 650 mg 03/11/25 17:44
Acetaminophen 325 Mg Tablet PO 04/08/25 17:43
Q4HPRN PRN
mild pain/RENAE/temp> 100.4F
Artificial Tears 2 drops 03/11/25 18:00 03/15/25 09:13
Artificial Tears Pf (Refresh) 10 Drop Droperette BOTH EYES 04/08/25 17:59 2 drops
DAILY NILE Administration
Bisacodyl 10 mg 03/11/25 17:44
Bisacodyl 10 Mg Rectal Suppository RECTAL 04/08/25 17:43
[id number] PRN
constipation
Finasteride 5 mg 03/11/25 17:44 03/15/25 09:10
Finasteride 5 Mg Tablet PO 04/08/25 17:43 5 mg
DAILY NILE Administration
Fludrocortisone Acetate 0.1 mg 03/12/25 08:00 03/12/25 09:17
Fludrocortisone Acetate 0.1 Mg Tablet PO 04/09/25 07:59 Not Given
On Hold: 03/12/25 11:46 DAILY NILE
Furosemide 40 mg 03/12/25 08:00 03/15/25 09:09
Furosemide 40 Mg (10 Mg/Ml) 4 Ml Vial IV 04/09/25 07:59 40 mg
DAILY NILE Administration
Guaifenesin/Dextromethorphan 5 ml 03/11/25 17:55
Guaifenesin/Dextromethorphan 200 Mg/10 Ml Cup PO 04/08/25 17:54
Q4HPRN PRN
cough
Hydralazine HCl 5 mg 03/11/25 18:36 03/11/25 18:42
Hydralazine 20 Mg/Ml Vial IV 04/08/25 18:35 5 mg
Q4HPRN PRN Administration
sbp>160
Ferric Sodium Gluconate 110 mls @ 110 mls/hr 03/12/25 14:00 03/15/25 13:36
Complex 125 mg/ Sodium IV 03/16/25 14:59 110 mls
Chloride DAILY@1400 NILE Administration
Melatonin 3 mg 03/11/25 22:00 03/14/25 22:34
Melatonin 3 Mg Tablet PO 04/08/25 21:59 3 mg
HS NILE Administration
Metoprolol Succinate 25 mg 03/11/25 22:00 03/14/25 22:38
Metoprolol 25 Mg Extended Release Tablet PO 04/08/25 21:59 25 mg
HS NILE Administration
Midodrine 15 mg 03/11/25 17:44 03/15/25 12:55
Midodrine 5 Mg Tablet PO 04/08/25 17:43 Not Given
TID@0800,1200,1700 NILE
Pantoprazole Sodium 20 mg 03/11/25 17:44 03/15/25 09:10
Pantoprazole 20 Mg Delayed Release Tablet PO 04/08/25 17:43 20 mg
DAILY NILE Administration
Polyethylene Glycol 17 grams 03/11/25 17:44
Polyethylene Glycol Powder 17 Grams Packet PO 04/08/25 17:43
DAILYPRN PRN
constipation
Pyridostigmine Belzoni 30 mg 03/14/25 16:00 03/15/25 09:10
Pyridostigmine 60 Mg Tablet PO 04/11/25 15:59 30 mg
TID NILE Administration
Senna/Docusate Sodium 1 tablet 03/11/25 17:44
Docusate W/Senna (Maria Fernanda-Colace) Tablet PO 04/08/25 17:43
BIDPRN PRN
constipation
Sennosides 17.2 mg 03/11/25 22:00 03/14/25 22:32
Sennosides (Senokot) 8.6 Mg Tablet PO 04/08/25 21:59 17.2 mg
HS NILE Administration
Sodium Chloride 0 flush 03/11/25 18:00 03/15/25 13:36
Sodium Chloride 0.9% (Flush) Syringe IV 04/08/25 17:59 1 flush
PER PROTOCOL NILE Administration
Warfarin Sodium 5 mg 03/13/25 18:00 03/14/25 18:03
Warfarin 5 Mg Tablet PO 03/18/25 17:59 5 mg
QPM NILE Administration
Home Medications
�Medication �Instructions �Recorded
fludrocortisone 0.1 mg tablet 0.1 mg PO DAILY orthostatic 07/08/24
hypotension
metoprolol succinate 25 mg 25 mg PO HS Blood Pressure 07/08/24
tablet,extended release 24 hr
polyethylene glycol 3350 17 gram 17 g PO DAILYPRN PRN constipation 07/08/24
oral powder packet (Miralax)
sennosides 8.6 mg tablet (senna) 17.2 mg PO HS Constipation 07/08/24
dextran 70-hypromellose (PF) 0.1 2 drp BOTH EYES DAILY Eye Condition 12/05/24
%-0.3 % eye drops in a dropperette
(Artificial Tears (PF))
melatonin 3 mg tablet 3 mg PO HS Sleep 12/05/24
acetaminophen 325 mg tablet 650 mg PO Q4HPRN PRN 03/11/25
pain/temp>100.4
dextromethorphan 5 mg-guaifenesin 10 ml PO Q4HPRN PRN cough 03/11/25
50 mg/5 mL oral liquid (Tussin DM)
doxycycline hyclate 100 mg capsule 100 mg PO BID cellulitis 03/11/25
finasteride 5 mg tablet 5 mg PO DAILY bph 03/11/25
midodrine 5 mg tablet 15 mg PO TID@0800,1200,1700 03/11/25
orthostasis
pantoprazole 20 mg tablet,delayed 20 mg PO DAILY Gastrointestinal 03/11/25
release Issue
warfarin 5 mg tablet 5 mg PO QPM Blood Clot 03/11/25
Prevention/Tx
[2025-03-15] MEDS: FERRLECIT 110 MG IV (13:36)
[2025-03-15 15:56] VITALS: BP 167/80
--- NOTE | 2025-03-15 16:36 | PTCARENOTE ---
Pt AAO x3, forgetful. VIRAMONTES slowly; OOB to chair with assist x2/walker, very unsteady w/OOb activity. Fall prec maintained. VSS. On room air- pulse ox 98%, pt with (+) slight BONE; denies SOB. Abd large, rounded, cosme IDDI 4 diet with HTL- no
dysphagia noted; aspir prec maintained. Incont large amts urine; condom cath re-applied x3- draining mod amts clear tl david urine.Afebrile; warm and dry; foam dsgs intact to Lt hand/ Rt forearm/heels. Resting in bed at present; no c/o. Will
continue to monitor.
[2025-03-15] MEDS: COUMADIN 5 MG PO (17:31)
[2025-03-15] MEDS: SENOKOT 17.2 MG PO (21:06)
[2025-03-15] MEDS: MELATONIN 3 MG PO (21:07)
[2025-03-15] MEDS: TOPROL XL 25 MG PO (21:18)
[2025-03-15 23:39] VITALS: BP 135/78
[2025-03-16 06:00] VITALS: BMI 18.4
[2025-03-16] MEDS: TYLENOL 650 MG PO (06:25)
[2025-03-16 07:15] VITALS: BP 155/114
--- NOTE | 2025-03-16 07:36 | W.PN.HOSP.TC ---
Addendum entered and electronically signed by Blake Borden MD 03/16/25 13:55:
Seen and examined by me independently in collaboration with the medical secretary.
Lab data and imaging data reviewed.
Addendum as below :
Patient's remain improved with his breathing. Remains off of oxygen. Swallowing is okay. Tolerating modified diet.
Echocardiogram noted with RV dysfunction and elevated pulmonary pressure. He denies any prior history of primary lung issues of COPD, emphysema. Denies smoking history. Unclear etiology for his right-sided heart failure. Consult pulmonary.
Continue with Mestinon trial. Continue speech therapy. Will obtain an MRI of the brain for further evaluation of dysphagia. Neurology following.
Patient would like to avail medical treatments and as well as physical therapy and give a chance to get better.
Discussed with daughter regarding clinical diagnosis, treatments planned.
Daughter had seen a general decline with multiple hospitalization and rehab. Rehabilitations does not really help him much. With his chronic medical condition and acute flareups and general decline she feels that he is not having a good quality of
life. She had discussions with him again today. They feel goal should be more comfort oriented and consider hospice. In fact the daughter after discussions with the dad had contacted outpatient hospice agency. She also wanted to switch to
Eliquis if possible. I see no reason for not getting Eliquis if cost is not prohibitive. Hold Coumadin and once INR less than 2 start on Eliquis.
Total time spent on today's encounter was 52 minutes which included time spent in counseling the patient/family regarding diagnosis and treatment plan as listed above, goals of care, and symptom management. Case was discussed with nursing staff,
specialists, and care coordinators/case management. All labs and imaging personally reviewed by me. Remainder the time spent in detailed review of previous records, lab data, imaging, and other medical provider documentation.
Original Note:
Today's Communication/Plan
-
MRI brain with contrast
Follow cytology
Orthostatic vitals daily
Pulmonology consult
Discontinue catheter
Assessment / Plan
Assessment / Plan
Impression
Patient is an 84-year-old male, who presented with cough, shortness of breath and hypoxia along with change in mental status from his independent living facility. His last hospitalization in 03/05/2025, he weighed 65 EKGs approximately, on this
admission he weighs 74 kg's. JVD present, bilateral pedal edema present, bilateral decreased breath sounds at lung bases consistent with acute on chronic heart failure with preserved ejection fraction. In addition noticed increased work of
breathing and tachycardia with irregular heart rhythm.
Admitted the patient for acute on chronic heart failure
Assessment/plan
#Dysphagia most likely secondary to myasthenia gravis
Neurology consulted for new onset dysphagia from last 3 weeks-started him on pyridostigmine trial-patient tolerating modified diet
MRI of brain
Eventual follow-up on outpatient basis for an EMG and repetitive nerve stimulation study
Tried to call the daughter and discussed goals of care
#Acute on chronic heart failure with preserved ejection fraction
Presented with acute on chronic heart failure-concerned about linear density on chest x-mrc-xdcijijeqcvwinrm done-ejection fraction 50 to 55%-enlarged right ventricle, reduced ventricular systolic function, severely dilated right atrium, moderate TR
and severely elevated pulmonary artery systolic pressure
No history of lung disease but the chest x-ray from November 2024, shows hyperinflation of the lungs, subsequent x-rays show bilateral pleural effusion
Patient does not provide any history of lung issues
Pulmonology consult for elevated right-sided pressures
#Permanent atrial fibrillation/Supratherapeutic INR
Continue metoprolol
Presented with supra therapeutic INR, warfarin was briefly on hold, now resumed, current INR 2.06
Heart rate well-controlled, patient in sinus rhythm
#Metabolic alkalosis
Patient has rapid shallow breathing, elevated bicarb, although breathing on room air
Bicarb remains relatively stable, continue to monitor
#Left-sided pleural effusion
Thoracocentesis done, drained about 950 mL of straw-colored seezr-jdkzugolk-sfbkusky pending
Patient breathing better
#Essential hypertension-presented with hypertensive urgency, continue home medications as able, use IV hydralazine on as-needed basis
#Leukocytosis-resolved
DVT prophylaxis-SCDs
CODE STATUS-full code
Anticipated Discharge: 24 - 48 hours
Subjective/Interval History
-
Date of Service: March 16, 2025
Reports irritation and feels uncomfortable with the condom catheter, breathing feels fine and is able to tolerate modified diet
More concerned about his social issues, asked for numbers to call his daughter and son
Objective Data
-
Labs:
Laboratory Results
03/16/25
06:00
WBC Pending
Hgb Pending
Hct Pending
Plt Count Pending
Sodium Pending
Potassium Pending
Chloride Pending
Carbon Dioxide Pending
BUN Pending
Creatinine Pending
Glucose Pending
Calcium Pending
Vital Signs:
Vital Signs
Temp Pulse Resp BP Pulse Ox
97.5 F 74 16 135/78 94
03/15/25 23:39 03/15/25 23:39 03/15/25 23:39 03/15/25 23:39 03/15/25 23:39
I&O
03/15/25 03/16/25 03/17/25
06:59 06:59 06:59
Intake Total 90 / 90 1610 / 1610
Output Total 650 / 650 600 / 600
Balance -560 / -560 1010 / 1010
Review of Systems
-
All other systems: Reviewed and negative
Physical Exam
-
General: No Apparent Distress, Comfortable and Cachectic
HEENT: Anicteric
Respiratory: Clear to Auscultation; Negative Wheezes, Rales or Rhonchi
Cardiac: S1/S2 and Irregular Rhythm
GI: Soft, Nontender and Normal Bowel Sounds
Musculoskeletal: No Clubbing, No Cyanosis, No Edema and Other (Bilateral's venous stasis dermatitis)
Skin: Warm, Dry and Other (Multiple seborrheic keratotic lesions)
Neuro: Awake, AO x 3 and Nonfocal/Grossly Intact
Psych: Depressed (About his social situation)
[2025-03-16 08:50] LABS: Hematocrit 33.9 % (39.0-52.0); Hemoglobin 10.9 g/dL (13.0-18.0); Mean Corp Hgb Conc. 32.2 g/dL (33.0-37.0); Mean Corpuscular Hgb 31.5 pg (27.0-31.0); Mean Platelet Volume 9.3 fL (7.4-10.4); Platelet Count 289 10^3/uL (130-400); Red Blood Cell Count 3.46 10^6/uL (4.70-6.10); Red Cell Dist. Width 13.4 % (11.5-14.5); White Blood Cell Count 8.1 10^3/uL (4.8-10.8)
[2025-03-16 09:43] LABS: Blood Urea Nitrogen 15 mg/dl (9-20); Calcium 8.2 mg/dl (8.4-10.2); Carbon Dioxide 34 mmol/L (22-30); Chloride 103 mmol/L (98-107); Estimated Creatinine Clearance 80 ml/min; Glucose 117 mg/dl (70-99); Magnesium 1.9 mg/dl (1.6-2.3); Potassium 3.7 mmol/L (3.5-5.1); Sodium 140 mmol/L (135-145); eGFR > 60.00
[2025-03-16] MEDS: ProAmatine PO ×2 (09:43→16:56)
[2025-03-16] MEDS: PROSCAR 5 MG PO (09:44)
[2025-03-16] MEDS: MESTINON 30 MG PO ×3 (09:44→21:01)
[2025-03-16] MEDS: REFRESH EYE DROPS (PF) 2 DROPS BOTH EYES (09:44)
[2025-03-16] MEDS: PROTONIX 20 MG PO (09:44)
[2025-03-16] MEDS: LASIX 40 MG IV (09:44)
[2025-03-16] MEDS: FERRLECIT 110 MG IV (12:43)
[2025-03-16] MEDS: ProAmatine 15 MG PO (12:43)
[2025-03-16 13:49] VITALS: BP 113/76; PULSE 76
[2025-03-16] MEDS: KCL 40 MEQ PO (14:35)
[2025-03-16 15:10] VITALS: BP 162/99
[2025-03-16 15:36] LABS: INR 2.66; PT 28.3 Sec (11.4-14.6)
--- NOTE | 2025-03-16 15:56 | W.PN.UPDATE ---
Update Note
Progress Note Update
I spoke to the patient's daughter and the patient himself. The patient does not want hospice at this time and would like to pursue further workup, get to rehab, get stronger and give it a chance. The daughter keeps on insisting on hospice and
claims her healthcare power of attorney law clerk. I explained to the daughter that the power of attorney law clerk activates months the patient mentally incapacitated and not able to make decisions for himself, only then the power of attorney law clerk becomes activated. We
will respect the patient's wishes and continue treatment.
The patient expressed desire to change his CODE STATUS to DNR
--- NOTE | 2025-03-16 17:33 | CON.PUL ---
Consultation
Consultation Request
Date/Time Consultation Requested: 03/16/2025 - 1257
Date/Time Consultation Performed: 03/16/2025 - 165
Requesting Provider: Dr. Greenberg
Performing Provider: Dr. Samson
Reason for Consultation: Pulmonary HTN
Medical History
-
Chief Complaint: SOB + weakness
History of Present Illness:
84-year-old male with a past medical history of A-fib on Coumadin, chronic HFpEF, orthostatic hypotension on midodrine + Florinef, hypercholesterolemia and history of CVA who presented with shortness of breath and weakness. Patient is a poor
historian. His symptoms slowly developed. He fell out of his bed the day prior to arrival. In the ER he was afebrile with pulse rate 89, respiratory rate 16, BP elevated at 184/99, and saturating 95% on room air. Initial labs significant for
leukocytosis 11.2, Hb 12.7, INR 6.16, T. bili 1.6, proBNP 5870, and urinalysis negative for UTI. CXR showed bilateral pleural effusions and he was given 40 mg IV Lasix and admitted to the hospitalist service. Patient had a CT chest on 03/14/2025
showing moderate-sized bilateral pleural effusions with fluid in the left-sided horizontal fissure. Thoracentesis was performed on 03/14 with removal of 950 cc of straw-colored transudative pleural fluid. Transthoracic echocardiogram on 03/15/2025
showed a dilated RV with reduced RV systolic function, and worsened PASP now at 66 mmHg from 44 mmHg on prior echo from 12/06/2024. Pulmonary service is now consulted for additional management/recommendations.
When I saw the patient today he was on room air breathing comfortably. He has no current complaints. He was very sleepy. Unable to get HPI from him or ROS given his baseline clinical status/dementia.
PMHx: Chronic HFpEF, CVA, permanent A-fib on Coumadin, orthostatic hypotension on midodrine + Florinef, hypercholesterolemia
PSHx: Cataract surgery, hernia repair
Past Medical History
Past Medical History: Other (Above as per HPI)
Past Surgical History: Other (Above as per HPI)
Social History
Tobacco: Non-smoker
Alcohol: None
Drug: None
Family History
Family History: Reviewed & Not Pertinent
Allergies / Home Medications
Allergies
Allergy/AdvReac Type Severity Reaction Status Date / Time
oxybutynin Allergy Unknown Verified 07/08/24 10:24
Home Medications
�Medication �Instructions �Recorded �Confirmed �Last Taken �Type
fludrocortisone 0.1 mg tablet 0.1 mg PO DAILY orthostatic 07/08/24 03/11/25 03/10/25 History
hypotension
metoprolol succinate 25 mg 25 mg PO HS Blood Pressure 07/08/24 03/11/25 03/10/25 History
tablet,extended release 24 hr
polyethylene glycol 3350 17 gram 17 g PO DAILYPRN PRN constipation 07/08/24 03/11/25 Unknown History
oral powder packet (Miralax)
sennosides 8.6 mg tablet (senna) 17.2 mg PO HS Constipation 07/08/24 03/11/25 03/10/25 History
dextran 70-hypromellose (PF) 0.1 2 drp BOTH EYES DAILY Eye Condition 12/05/24 03/11/25 03/10/25 History
%-0.3 % eye drops in a dropperette
(Artificial Tears (PF))
melatonin 3 mg tablet 3 mg PO HS Sleep 12/05/24 03/11/25 03/10/25 History
acetaminophen 325 mg tablet 650 mg PO Q4HPRN PRN 03/11/25 03/11/25 Unknown History
pain/temp>100.4
dextromethorphan 5 mg-guaifenesin 10 ml PO Q4HPRN PRN cough 03/11/25 03/11/25 Unknown History
50 mg/5 mL oral liquid (Tussin DM)
doxycycline hyclate 100 mg capsule 100 mg PO BID cellulitis 03/11/25 03/11/25 03/10/25 History
finasteride 5 mg tablet 5 mg PO DAILY bph 03/11/25 03/11/25 03/10/25 History
midodrine 5 mg tablet 15 mg PO TID@0800,1200,1700 03/11/25 03/11/25 03/10/25 History
orthostasis
pantoprazole 20 mg tablet,delayed 20 mg PO DAILY Gastrointestinal 03/11/25 03/11/25 03/10/25 History
release Issue
warfarin 5 mg tablet 5 mg PO QPM Blood Clot 03/11/25 03/11/25 03/10/25 History
Prevention/Tx
Review of Systems
-
Unable to Obtain full review of systems at this time due to: Dementia
Vitals / Labs / Diagnostic Testing
Vital Signs
Temp Pulse Resp BP Pulse Ox
98.5 F 69 14 135/81 94
03/16/25 23:19 03/16/25 23:19 03/16/25 23:19 03/16/25 23:19 03/16/25 23:19
Lab Data
03/16/25 07:58
Laboratory Results
03/16/25
15:07
PT 28.3 H
INR 2.66
Microbiology
03/14/25 15:39 Pleural Fluid Body Fluid Culture - Preliminary
No Growth After 48 Hours
03/14/25 15:39 Pleural Fluid Gram Stain - Preliminary
Diagnostic Testing:
Physical Exam
-
HEENT: Normocephalic and Anicteric
Cardiovascular: Irregular Rhythm (Irregularly irregular) and Peripheral Edema (n)
Respiratory: Wheeze (n), Rales (Bibasilar and left anterior chest) and Rhonchi (n)
GI: Soft, Non Distended, Non Tender and Normal Bowel Sounds
Neurology: Tremors (n) and Other (Drowsy)
Skin: Warm, Dry and Other (Chronic venous stasis dermatitis changes in bilateral lower extremities)
General: Respiratory Distress (n), Comfortable, Chills (n) and Sweats (n)
Assessment
-
Assessment: 84-year-old male with a past medical history of A-fib on Coumadin, chronic HFpEF, orthostatic hypotension on midodrine + Florinef, hypercholesterolemia and history of CVA who presented with shortness of breath and weakness. Patient is
a poor historian. His symptoms slowly developed. He fell out of his bed the day prior to arrival. In the ER he was afebrile with pulse rate 89, respiratory rate 16, BP elevated at 184/99, and saturating 95% on room air. Initial labs significant
for leukocytosis 11.2, Hb 12.7, INR 6.16, T. bili 1.6, proBNP 5870, and urinalysis negative for UTI. CXR showed bilateral pleural effusions and he was given 40 mg IV Lasix and admitted to the hospitalist service. Patient had a CT chest on
03/14/2025 showing moderate-sized bilateral pleural effusions with fluid in the left-sided horizontal fissure. Thoracentesis was performed on 03/14 with removal of 950 cc of straw-colored transudative pleural fluid. Transthoracic echocardiogram on
03/15/2025 showed a dilated RV with reduced RV systolic function, and worsened PASP now at 66 mmHg from 44 mmHg on prior echo from 12/06/2024. Pulmonary service is now consulted for additional management/recommendations.
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
Impression:
#Acute on chronic HFpEF
#Pulmonary hypertension with severely elevated PASP of 66 mmHg per echo on 03/15/2025
#RV enlargement with right ventricular dysfunction
#Anemia
#Chronic anticoagulation with Coumadin for A-fib
#Hypercholesterolemia
#CVA
#Dementia
#Subclinical hyperthyroidism
#Orthostatic hypotension on midodrine + Florinef
Plan:
- Patient is in an acute HFpEF exacerbation and this is likely the cause of his acute rise pulmonary artery pressures
- Although the patient had thoracentesis with improvement in left-sided effusion, he still appears to be hypervolemic on post-thoracentesis CXR
- Currently on IV lasix 40mg daily since 03/12 --> re-check BNP tomorrow. I believe that we still need to continue being aggressive with diuresis (as BP tolerates) as his Cr and serum HCO3 levels are stable - meaning we have not yet reached a
point of contraction alkalosis. Also, his weight is 9 lbs greater than it was compared to 12/10/2024 when he weighed 130 lbs which is likely his dry weight
- Would ideally repeat echo once he is euvolemic to re-assess PA pressures; this could be done as an inpatient if he is not improving otherwise can be done in office setting
- I do not see any prior right heart catheterization procedures, and this would be needed to confirm the severity of pulmonary hypertension, however in the setting of acute decompensated heart failure, best option is to diurese and optimize volume
status before we do an invasive procedure that may confirm what we already have suspicion for based on the above clinical data points
- Make sure that he is consuming a sodium + fluid restricted diet
- Strict I/O and daily weights should continue
- Maintain SpO2 >90-94% with supplemental O2 as needed; he is currently on room air, breathing comfortably
- prn nebulized bronchodilators - not currently bronchospastic
- Incentive spirometer encouraged q1hr while awake
- Replete electrolytes with K>4, Mg>2
- Trend H/H and transfuse if needed to keep Hb>7g/dL; keep plt>20k, unless there is concern for bleeding then keep plt>50k
- Maintain euglycemia with goal BG >100 and <180
- DVT ppx
Code status: DNR/DNI
Pulmonary service will continue to follow along.
Data:
Transthoracic echocardiogram 03/15/2025:
Normal left ventricular systolic function. Left ventricular ejection fraction
is 50-55%.
Enlarged right ventricular size. Reduced right ventricular systolic function.
Severely dilated right atrium.
Moderate tricuspid regurgitation. Severely elevated PASP. Estimated pulmonary
artery pressure of 66 mmHg. Assuming a right atrial pressure of 15 mmHg.
Mildly dilated aortic root. Sinus of Valsalva measures 4.2 cm.
Compared to 12/06/24: RV now appears dilated with reduced function. TR has
progressed from mild to moderate. PASP has increased from 44 mmHg to 66 mmHg.
Prior SOV measurement was 3. 7cm.
CT chest with IV contrast 03/14/2025:
Dilatation of all of the cardiac chambers as well as the inferior vena cava. Moderate bilateral pleural effusions. Findings worrisome for congestive heart failure.
Heterogeneous lower lobe opacities, likely compressive partial atelectasis secondary to the pleural effusions. Pneumonia is less likely.
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 Follow-up chest CT in 6 months recommended for reevaluation
Severe compression fracture of L1 vertebral body. Retropulsion related to this causes approximately 50% narrowing of AP diameter of spinal canal. MRI lumbar spine should be considered for more complete evaluation.
Total time spent today was 59 minutes for this encounter. Time includes reviewing laboratory test/imaging results, reviewing pertinent medical records, obtaining and reviewing medical history, performing an appropriate exam, ordering medications,
tests and procedures. Time also includes documentation of this encounter, coordinating patient care and communicating with other healthcare professionals. Total time does not include separately billed tests performed on this date of service.
Patient was seen and evaluated on 03/16/2025
[2025-03-16] MEDS: MELATONIN 3 MG PO (21:01)
[2025-03-16] MEDS: SENOKOT 17.2 MG PO (21:02)
[2025-03-16] MEDS: TOPROL XL 25 MG PO (21:09)
[2025-03-16 23:19] VITALS: BP 135/81
[2025-03-17 06:00] VITALS: BMI 17.6
[2025-03-17 07:44] VITALS: BP 160/100
--- NOTE | 2025-03-17 07:44 | W.PN.HOSP.TC ---
Addendum entered and electronically signed by Blake Borden MD 03/17/25 15:42:
Seen and examined by me independently in collaboration with the electromedical service engineer.
Lab data and imaging data reviewed.
Addendum as below :
Patient improved from heart failure standpoint. Pulmonary feels the right heart failure is probably secondary to left heart failure. Continue with diuresis.
Swallowing fine on modified diet. Continue with Mestinon trial per neurology.
Had a discussion of goals of care today with the patient and he sees a general decline with his chronic disease processes and recurrent flares needing hospitalization and poor benefit from PT. He feels that the hospice is probably the way to go and
is in agreement with his daughter.
Will plan DC to his assisted living facility with hospice tomorrow
Original Note:
Today's Communication/Plan
-
Monitor INR, switch to Eliquis once less than 2
Continue pyridostigmine, follow Anti-MuSK antibody, eventual EMG on outpatient basis
Continue diuresis, input output monitoring, weight charting
Goals of care reviewed, leaning towards hospice
Assessment / Plan
Assessment / Plan
Impression
Patient is an 84-year-old male, who presented with cough, shortness of breath and hypoxia along with change in mental status from his independent living facility. His last hospitalization in 03/05/2025, he weighed 65 kgs approximately, on this
admission he weighs 74 kg's. JVD present, bilateral pedal edema present, bilateral decreased breath sounds at lung bases consistent with acute on chronic heart failure with preserved ejection fraction. In addition noticed increased work of
breathing and tachycardia with irregular heart rhythm.
Admitted the patient for acute on chronic heart failure
Assessment/plan
#Dysphagia most likely secondary to myasthenia gravis
On admission, patient had cough with swallowing food and there was concern for dysphagia, patient reported difficulty in swallowing from last 3 weeks that is more pronounced by the time of dinner
Neurology consulted-concern for myasthenia gravis-started him on pyridostigmine trial-patient tolerating modified diet
Continue pyridostigmine since patient is feeling well on it
Anti-acetylcholine antibody negative, antimusk antibody pending-confirmatory test is EMG-would be done on outpatient basis
Eventual follow-up on outpatient basis for an EMG and repetitive nerve stimulation study
#Acute on chronic heart failure with preserved ejection fraction
Presented with acute on chronic heart failure-concerned about linear density on chest e-nux-cdhpsuhkjqvmdacq done-ejection fraction 50 to 55%-enlarged right ventricle, reduced ventricular systolic function, severely dilated right atrium, moderate TR
and severely elevated pulmonary artery systolic pressure
No history of lung disease but the chest x-ray from November 2024, shows hyperinflation of the lungs, subsequent x-rays show bilateral pleural effusion
Patient does not provide any history of lung issues
Pulmonology consult wehwpszouov-ohdhz-volat pressures elevated due to left heart failure-continue diuresis-eventual right heart catheterization if no improvement
#Permanent atrial fibrillation/Supratherapeutic INR
Continue metoprolol
Presented with supra therapeutic INR, warfarin was briefly on hold, now resumed, current INR 2.08
Heart rate well-controlled, patient in sinus rhythm
Warfarin remains on hold, monitor INR, once less than 2 consider Eliquis
#Metabolic alkalosis
Patient has rapid shallow breathing, elevated bicarb, although breathing on room air
Bicarb remains relatively stable, continue to monitor
#Left-sided pleural effusion
Thoracocentesis done, drained about 950 mL of straw-colored ljkyg-xncmrgvca-aziozqbl pending
Patient breathing better
#Essential hypertension-presented with hypertensive urgency, continue home medications as able, use IV hydralazine on as-needed basis
#Leukocytosis-resolved
DVT prophylaxis-SCDs
CODE STATUS-full code
Anticipated Discharge: 24 - 48 hours
Subjective/Interval History
-
Date of Service: March 17, 2025
Feels fine, breathing on room air, no active issues
Objective Data
-
Labs:
Laboratory Results
03/17/25
06:33
PT Pending
INR Pending
Sodium Pending
Potassium Pending
Chloride Pending
Carbon Dioxide Pending
BUN Pending
Creatinine Pending
Glucose Pending
Calcium Pending
Vital Signs:
Vital Signs
Temp Pulse Resp BP Pulse Ox
98.5 F 69 14 135/81 94
03/16/25 23:19 03/16/25 23:19 03/16/25 23:19 03/16/25 23:19 03/16/25 23:19
I&O
03/16/25 03/17/25 03/18/25
06:59 06:59 06:59
Intake Total 1610 / 1610 450 / 450
Output Total 600 / 600
Balance 1010 / 1010 450 / 450
Review of Systems
-
All other systems: Reviewed and negative
Physical Exam
-
General: No Apparent Distress, Cachectic and Other (Lying comfortably in bed)
HEENT: Moist Mucous Membranes and Anicteric
Respiratory: Clear to Auscultation; Negative Wheezes, Rales or Rhonchi
Cardiac: S1/S2 and Irregular Rhythm
GI: Soft, Nontender, Nondistended and Normal Bowel Sounds
Musculoskeletal: No Clubbing, No Cyanosis and Other (Chronic venous stasis dermatitis)
Skin: Warm, Dry and Other (Several SK lesions)
Neuro: Awake, AO x 3 and Nonfocal/Grossly Intact
Psych: Calm
[2025-03-17 08:02] LABS: NT-proBNP 3470 pg/ml
[2025-03-17 08:26] LABS: Blood Urea Nitrogen 17 mg/dl (9-20); Calcium 8.5 mg/dl (8.4-10.2); Carbon Dioxide 33 mmol/L (22-30); Chloride 104 mmol/L (98-107); Estimated Creatinine Clearance 66 ml/min; Glucose 125 mg/dl (70-99); Sodium 140 mmol/L (135-145); eGFR > 60.00
[2025-03-17 08:32] LABS: INR 2.08; PT 23.5 Sec (11.4-14.6)
[2025-03-17] MEDS: ProAmatine PO ×3 (08:55→16:43)
[2025-03-17] MEDS: LASIX 40 MG PO (08:56)
[2025-03-17] MEDS: PROSCAR 5 MG PO (08:56)
[2025-03-17] MEDS: MESTINON 30 MG PO ×3 (08:56→21:32)
[2025-03-17] MEDS: PROTONIX 20 MG PO (08:56)
[2025-03-17] MEDS: REFRESH EYE DROPS (PF) 2 DROPS BOTH EYES (08:57)
[2025-03-17] MEDS: TYLENOL 650 MG PO (12:25)
[2025-03-17 15:22] VITALS: BP 137/88
[2025-03-17 15:23] VITALS: BP 133/81; BP 137/88; PULSE 92; PULSE 94
--- NOTE | 2025-03-17 15:40 | W.PN.PUL3 ---
Today's Communication / Plan
-
Patient remains exquisitely weak
Continue to gently diurese as he is likely near his dry weight
Up OOB
PT/OT
Encourage incentive spirometer
Resume Coumadin, trend INR
According to hospitalist, given that the patient is declining, goals of care discussion held and the patient and his daughter have agreed for hospice
No additional recommendations at this time. Pulmonary service will now sign off. Please reconsult if there are any additional questions/concerns, or if patient's respiratory status deteriorates.
Assessment
-
Assessment: 84-year-old male with a past medical history of A-fib on Coumadin, chronic HFpEF, orthostatic hypotension on midodrine + Florinef, hypercholesterolemia and history of CVA who presented with shortness of breath and weakness. Patient is
a poor historian. His symptoms slowly developed. He fell out of his bed the day prior to arrival. In the ER he was afebrile with pulse rate 89, respiratory rate 16, BP elevated at 184/99, and saturating 95% on room air. Initial labs significant
for leukocytosis 11.2, Hb 12.7, INR 6.16, T. bili 1.6, proBNP 5870, and urinalysis negative for UTI. CXR showed bilateral pleural effusions and he was given 40 mg IV Lasix and admitted to the hospitalist service. Patient had a CT chest on
03/14/2025 showing moderate-sized bilateral pleural effusions with fluid in the left-sided horizontal fissure. Thoracentesis was performed on 03/14 with removal of 950 cc of straw-colored transudative pleural fluid. Transthoracic echocardiogram on
03/15/2025 showed a dilated RV with reduced RV systolic function, and worsened PASP now at 66 mmHg from 44 mmHg on prior echo from 12/06/2024. Pulmonary service is now consulted for additional management/recommendations.
Chronic conditions RELIGIOUS ASSISTANT: Chronic HFpEF, CVA, permanent A-fib on Coumadin, orthostatic hypotension on midodrine + Florinef, hypercholesterolemia
Impression:
#Acute on chronic HFpEF
#Pulmonary hypertension with severely elevated PASP of 66 mmHg per echo on 03/15/2025
#RV enlargement with right ventricular dysfunction
#Anemia
#Chronic anticoagulation with Coumadin for A-fib
#Hypercholesterolemia
#CVA
#Dementia
#Subclinical hyperthyroidism
#Orthostatic hypotension on midodrine + Florinef
Plan:
- Patient is in an acute HFpEF exacerbation and this is likely the cause of his acute rise pulmonary artery pressures
- Although the patient had thoracentesis on 03/14/2025 with improvement in left-sided effusion, he still appears to be hypervolemic on post-thoracentesis CXR
- He is s/p IV lasix 40mg daily 03/12 - 03/16, now on 40mg PO lasix once daily--> proBNP today has improved, now down to 3470 from 5870. He is on room air breathing comfortably and he has no rales on exam
- Given his physical exam with the fact that he is on room air breathing comfortably, believe there were likely close to his dry weight which is 130 lbs +/- 2-3 lbs
- Would ideally repeat echo once he is euvolemic to re-assess PA pressures; given that he is improving, this can be done as an outpatient. This may be a moot point as the patient is planning on outpatient hospice, per the hospitalist documentation
from today
- I do not see any prior right heart catheterization procedures, and this would be needed to confirm the severity of pulmonary hypertension, however considering that he has improved, there is no current indication for a right heart catheterization
for this 84-year-old male.
- Make sure that he is consuming a sodium + fluid restricted diet
- Strict I/O and daily weights should continue
- Maintain SpO2 >90-94% with supplemental O2 as needed; he is currently on room air, breathing comfortably
- prn nebulized bronchodilators - not currently bronchospastic
- Incentive spirometer encouraged q1hr while awake
- Replete electrolytes with K>4, Mg>2
- Trend H/H and transfuse if needed to keep Hb>7g/dL; keep plt>20k, unless there is concern for bleeding then keep plt>50k
- Maintain euglycemia with goal BG >100 and <180
- DVT ppx: resume coumadin as his INR is now approaching 2 and he will be subtherapeutic tomorrow
Code status: DNR/DNI
According to hospitalist, given that the patient is declining, goals of care discussion held and the patient and his daughter have agreed for hospice. No additional recommendations at this time. Pulmonary service will now sign off. Thank you for
allowing us to be involved in the care of this patient. Please reconsult if there are any additional questions/concerns, or if patient's respiratory status deteriorates.
Data:
Transthoracic echocardiogram 03/15/2025:
Normal left ventricular systolic function. Left ventricular ejection fraction
is 50-55%.
Enlarged right ventricular size. Reduced right ventricular systolic function.
Severely dilated right atrium.
Moderate tricuspid regurgitation. Severely elevated PASP. Estimated pulmonary
artery pressure of 66 mmHg. Assuming a right atrial pressure of 15 mmHg.
Mildly dilated aortic root. Sinus of Valsalva measures 4.2 cm.
Compared to 12/06/24: RV now appears dilated with reduced function. TR has
progressed from mild to moderate. PASP has increased from 44 mmHg to 66 mmHg.
Prior SOV measurement was 3. 7cm.
CT chest with IV contrast 03/14/2025:
Dilatation of all of the cardiac chambers as well as the inferior vena cava. Moderate bilateral pleural effusions. Findings worrisome for congestive heart failure.
Heterogeneous lower lobe opacities, likely compressive partial atelectasis secondary to the pleural effusions. Pneumonia is less likely.
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 Follow-up chest CT in 6 months recommended for reevaluation
Severe compression fracture of L1 vertebral body. Retropulsion related to this causes approximately 50% narrowing of AP diameter of spinal canal. MRI lumbar spine should be considered for more complete evaluation.
Total time spent today was 38 minutes for this encounter. Time includes reviewing laboratory test/imaging results, reviewing pertinent medical records, obtaining and reviewing medical history, performing an appropriate exam, ordering medications,
tests and procedures. Time also includes documentation of this encounter, coordinating patient care and communicating with other healthcare professionals. Total time does not include separately billed tests performed on this date of service.
Subjective Data
-
Date of Service:
Date of Service: March 17, 2025
Chief Complaint: Pulmonary Follow Up
Subjective:
Patient was seen and evaluated today at bedside. Currently on room air breathing comfortably with no shortness of breath or cough reported. Confused at times and not the best historian. Currently denies chest pain, nausea, fevers or chills.
Review of Systems
General: Other (Negative unless mentioned above)
Objective Data
Data Reviewed
Vital Signs / I&O / Oxygen:
Vital Signs
Temp Pulse Resp BP Pulse Ox
98.1 F 89 18 160/100 96
03/17/25 07:44 03/17/25 07:44 03/17/25 07:44 03/17/25 08:55 03/17/25 08:50
Intake and Output
03/16/25 03/17/25 03/18/25
06:59 06:59 06:59
Intake Total 1610 / 1610 450 / 450
Output Total 600 / 600
Balance 1010 / 1010 450 / 450
SaO2 96
Nasal Cannula flow liters per 2
minute
Physical Exam
General: Respiratory Distress (negative), Chills (negative), Sweats (negative) and Other (Elderly male, physically deconditioned, unable to pull himself forward to let me listen to his back)
HEENT: Normocephalic and Anicteric
Cardiovascular: S1-S2 and Peripheral Edema (negative)
Respiratory: Wheeze (negative), Crackles (negative), Rhonchi (negative), Accessory Resp Muscle Use (negative) and Other (Diminished breath sounds bilaterally)
GI: Soft, Non Distended, Non Tender and Normal Bowel Sounds
Neurology: Awake, Alert and Tremors (negative)
Skin: Warm, Dry, Cyanosis (negative) and Jaundice (negative)
Labs/Micro/Reports
Lab Data
03/16/25 07:58
03/17/25 06:33
Laboratory Results
03/16/25 03/17/25
15:07 06:33
PT 28.3 H 23.5 H
INR 2.66 2.08
Microbiology
03/14/25 15:39 Pleural Fluid Body Fluid Culture - Preliminary
No Growth After 48 Hours
03/14/25 15:39 Pleural Fluid Gram Stain - Preliminary
[2025-03-17 16:23] VITALS: BP 133/81; BP 137/88; PULSE 92; PULSE 94
[2025-03-17] MEDS: MELATONIN 3 MG PO (21:31)
[2025-03-17] MEDS: SENOKOT 17.2 MG PO (21:32)
[2025-03-17] MEDS: TOPROL XL 25 MG PO (21:32)
[2025-03-17 23:13] VITALS: BP 135/81
[2025-03-18 07:29] VITALS: BP 150/96
[2025-03-18 07:56] LABS: Hematocrit 40.7 % (39.0-52.0); Hemoglobin 12.6 g/dL (13.0-18.0); Mean Corpuscular Hgb 30.9 pg (27.0-31.0); Mean Corpuscular Volume 99.8 fL (80.0-94.0); Mean Platelet Volume 9.6 fL (7.4-10.4); Platelet Count 329 10^3/uL (130-400); Red Blood Cell Count 4.08 10^6/uL (4.70-6.10); Red Cell Dist. Width 13.3 % (11.5-14.5); White Blood Cell Count 8.9 10^3/uL (4.8-10.8)
[2025-03-18 08:03] LABS: INR 1.94; PT 22.3 Sec (11.4-14.6)
[2025-03-18] MEDS: ProAmatine PO ×2 (08:06→16:40)
[2025-03-18] MEDS: PROTONIX 20 MG PO (08:06)
[2025-03-18] MEDS: LASIX 40 MG PO (08:06)
[2025-03-18] MEDS: MESTINON 30 MG PO ×2 (08:06→16:37)
[2025-03-18] MEDS: PROSCAR 5 MG PO (08:06)
[2025-03-18] MEDS: REFRESH EYE DROPS (PF) 2 DROPS BOTH EYES (08:09)
[2025-03-18 08:41] LABS: Blood Urea Nitrogen 15 mg/dl (9-20); Calcium 8.3 mg/dl (8.4-10.2); Carbon Dioxide 29 mmol/L (22-30); Chloride 104 mmol/L (98-107); Estimated Creatinine Clearance 66 ml/min; Glucose 107 mg/dl (70-99); Potassium 3.9 mmol/L (3.5-5.1); Sodium 139 mmol/L (135-145); eGFR > 60.00
--- NOTE | 2025-03-18 09:19 | W.PN.HOSP.TC ---
Addendum entered and electronically signed by Roe Cuellar MD 03/18/25 22:43:
Attending Addendum:
I saw and evaluated the patient. I reviewed the resident�s note and agree with findings and plan as documented in the resident�s note. Sub: 'Im ready to go home doc!' denies pain sob. Full 12 point ROS reviewed and negative except as documented
Exam: Vitals reviewed in chart GEN-NAD heart RRR lungs clear abd soft LE no edema
Plan:
#Dysphagia most likely secondary to myasthenia gravis
Neurology consulted-concern for myasthenia gravis-started him on pyridostigmine trial-patient tolerating modified diet
Continue pyridostigmine since patient is feeling well on it
Anti-acetylcholine antibody negative, antimusk antibody pending-confirmatory test is EMG-would be done on outpatient basis
patient would like to pursue hospice care on DC d/w patient at great length
#chronic heart failure with preserved ejection fraction
#Permanent atrial fibrillation/Supratherapeutic INR
Continue metoprolol
Presented with supra therapeutic INR, warfarin was briefly on hold, now resumed, current INR 2.08
Heart rate well-controlled, patient in sinus rhythm
dc on no ac
#Metabolic alkalosis
# Left Pleural Effusion
-s/p Thoracocentesis done, drained about 950 mL of straw-colored gyvgc-cvsdpkumi-2/29
#Essential hypertension-presented with hypertensive urgency, continue home medications as able, use IV hydralazine on as-needed basis
#Leukocytosis-resolved
DVT prophylaxis-SCDs
CODE DNR
Dispo DC to [facility] on hospice
ACP
Patient consented to discuss, was alone, time spent explanation of advance directives, changes in health status, patient�s health care wishes if the patient becomes unable to make health decisions, goals of care, code status, and prognosis 'i want
to go home and start hospice at home doc' - 16 minutes
Time spent coordinating care, DC planning, review of DC plan of care with resident, transition of care, review of records, med rec/scripts sent electronically, consults, notes, d/w consultants, nursing, and CM
total time documented is exclusive of any additional time listed that was spent in advance care planning discussion� 31 mins
Original Note:
Today's Communication/Plan
-
D/C today
Assessment / Plan
Assessment / Plan
Assessment/plan
#Dysphagia
#myasthenia gravis
Presented on admission with cough, some acute onset of dysphagia ongoing for 3 weeks
Neurology consulted. Input appreciated
Initiated on pyridostigmine
Neurology outpatient eval
#Acute on chronic heart failure with preserved ejection fraction
CXR on presentation moderate left effusion
S/p thoracocentesis 03/14 with about 950 mL of straw-colored fluid
Cytology studies evaluation, exudative pleural effusion per lights criteria
Echocardiogram 03/15 with EF 50-55%, severe dilated right atrium, moderate tricuspid regurg, enlarged right ventricular size, reduced right ventricular systolic function.
Pulmonology input appreciated
Currently on Lasix
#Permanent atrial fibrillation
Continue rate control with metoprolol
Supratherapeutic INR on presentation 6.16, warfarin held
Warfarin remains on hold, monitor INR
Given ongoing worsening medical problems and after discussion of goals of care with patient by hospitalist over the weekend. Patient has made the decision to go on hospice. Will DC back to SNF today with [facility] care at facility.
DVT prophylaxis-SCDs
CODE STATUS-DNR
Anticipated Discharge: Today
Subjective/Interval History
-
Date of Service: March 18, 2025
Objective Data
-
Labs:
Laboratory Results
03/18/25
06:58
WBC 8.9
Hgb 12.6 L
Hct 40.7
Plt Count 329
PT 22.3 H
INR 1.94
Sodium 139
Potassium 3.9
Chloride 104
Carbon Dioxide 29
BUN 15
Creatinine 0.7
Glucose 107 H
Calcium 8.3 L
Vital Signs:
Vital Signs
Temp Pulse Resp BP Pulse Ox
98.3 F 88 16 150/96 98
03/18/25 07:29 03/18/25 07:29 03/18/25 07:29 03/18/25 07:29 03/18/25 07:29
I&O
03/17/25 03/18/25 03/19/25
06:59 06:59 06:59
Intake Total 450 / 450 600 / 600
Balance 450 / 450 600 / 600
Review of Systems
-
All other systems: Reviewed and negative (Except as documented)
Physical Exam
-
General: No Apparent Distress and Cachectic
Respiratory: Clear to Auscultation; Negative Wheezes, Rales or Rhonchi
Cardiac: S1/S2 and Irregular Rhythm
GI: Soft, Nontender, Nondistended and Normal Bowel Sounds
Neuro: Awake, Alert, Oriented and AO x 3
Psych: Calm
[2025-03-18] MEDS: TYLENOL 650 MG PO (10:18)
[2025-03-18] MEDS: ProAmatine 15 MG PO (13:13)
--- NOTE | 2025-03-18 14:42 | CM ---
Patient has been cleared for discharge back to [facility] with intent of [facility] admitting to their service upon arrival.
[facility] Nurse to Nurse Report # [phone] Ask for Nursing, and . Transport has been scheduled for 4:00 PM on this date. Daughter, Chanda, notified and Mauricio at [facility] aware. [facility] Nursing notified of
transport time.
[2025-03-18 15:04] VITALS: BP 155/81
[2025-03-18 15:05] VITALS: BP 112/52; BP 155/81; BP 79/44; PULSE 79; PULSE 83; PULSE 91
--- NOTE | 2025-03-18 16:59 | W.DCSUMMARY ---
Addendum entered and electronically signed by Roe Cuellar MD 03/18/25 22:46:
Read, reviewed, and agree. See same day progress note for additional details. DC to [facility] for hospice eval at facility
Robbie Cuellar MD
Original Note:
Documented by User: Shaye Ennis MD, Resident 03/18/25 17:11
Discharge Summary
Discharge Data
Date of Admission: 03/11/25
Date of Discharge: 03/18/25
-
Pending Results: No
Hospital Course
Brief Hospital course; This is an 84-year-old male with past medical history of CHF, CVA, orthostatic hypotension, permanent atrial fibrillation on Coumadin who presented to ER 03/11 from independent living facility Complaining of generalized
weakness and dyspnea on exertion. At the nursing facility, he was noted not to follow directions with change in his mental status. Upon presentation to ER, he was noted to be hypertensive at 188/102, tachycardic at 103, satting at 92%. Chest
x-ray on presentation reviewed moderate to large left-sided pleural effusion. His INR on presentation was 6.1, supratherapeutic. He was started on IV Lasix in the ED, then transition to oral Lasix. He was also started on hydralazine as needed for
his elevated blood pressure readings. Cardiology was consulted, echocardiogram was ordered which showed Normal left ventricular systolic function. Left ventricular ejection fraction is 50-55%. Enlarged right ventricular size. Reduced right
ventricular systolic function. Severely dilated right atrium. Moderate tricuspid regurgitation. Severely elevated PASP. Estimated pulmonary artery pressure of 66 mmHg. Assuming a right atrial pressure of 15 mmHg. Mildly dilated aortic root. Sinus of
Valsalva measures 4.2 cm. On day 2 of hospitalization, patient had an episode of dysphagia and coughing while swallowing his food. Speech evaluation was done and was noted to have airway aspiration with thin liquids, nectar consistency barium and
solid foods. Neurology was consulted given his dysphagia and patient was started on pyridostigmine for possible myasthenia gravis with plans to follow-up outpatient for further neurological evaluation. Given his general health decline, history of
multiple hospitalizations and rehab, worsening chronic medical condition, multiple goals of care discussions were had with patient and daughter and a decision was made to place patient on hospice. Patient will be discharged back to [facility]
with [facility] upon arrival to location.
Discharge Plan
-
Patient Disposition: Correction/SNF
Discharge Diagnosis/Procedures: Dysphagia most likely secondary to myasthenia gravis
Acute on chronic heart failure with preserved ejection fraction
Permanent atrial fibrillation
Condition: Fair
Other Services: Hospice
Referrals:
Randa Knutson CRNP [Family Provider, Family Practice]
Prescriptions:
Continued
sennosides [senna] 8.6 mg Tablet
17.2 mg PO HS
polyethylene glycol 3350 [Miralax] 17 gram Powder In Packet
17 g PO DAILYPRN PRN (Reason: constipation)
metoprolol succinate 25 mg tablet extended release 24 hr
25 mg PO HS
Rx Instructions:
03/11/25 hold for sbp<100
fludrocortisone 0.1 mg tablet
0.1 mg PO DAILY
melatonin 3 mg Tablet
3 mg PO HS
Artificial Tears (PF) 0.1-0.3 % Dropperette
2 drp BOTH EYES DAILY
acetaminophen 325 mg tablet
650 mg PO Q4HPRN PRN (Reason: pain/temp>100.4)
midodrine 5 mg tablet
15 mg PO TID@0800,1200,1700
Rx Instructions:
03/11/25: Hold if SBP>/=130
pantoprazole 20 mg tablet,delayed release (DR/EC)
20 mg PO DAILY
finasteride 5 mg tablet
5 mg PO DAILY
Tussin DM 5-50 mg/5 mL liquid
10 ml PO Q4HPRN PRN (Reason: cough)
warfarin 5 mg tablet
5 mg PO QPM
Discontinued
doxycycline hyclate 100 mg capsule
100 mg PO BID
Rx Instructions:
03/11/25: initiated 03/04/25 for 10 days
Discharge Orders:
Discharge Patient (As Directed); Ordered 03/18/25
Ordered By: Shaye Ennis
Discharge Date and Time
Discharge Date/Time: 03/18/25 18:08
Print Language: CAPE VERDEAN

Documented by User: Roe Cuellar MD 03/18/25 22:34
Discharge Summary
Discharge Data
Date of Admission: 03/11/25
Date of Discharge: 03/18/25
Discharge Plan
-
Patient Disposition: Correction/SNF
Discharge Diagnosis/Procedures: Dysphagia most likely secondary to myasthenia gravis
Acute on chronic heart failure with preserved ejection fraction
Permanent atrial fibrillation
Condition: Fair
Other Services: Hospice
Referrals:
Randa Knutson CRNP [Family Provider, Family Practice]
Prescriptions:
Continued
sennosides [senna] 8.6 mg Tablet
17.2 mg PO HS
polyethylene glycol 3350 [Miralax] 17 gram Powder In Packet
17 g PO DAILYPRN PRN (Reason: constipation)
metoprolol succinate 25 mg tablet extended release 24 hr
25 mg PO HS
Rx Instructions:
03/11/25 hold for sbp<100
fludrocortisone 0.1 mg tablet
0.1 mg PO DAILY
melatonin 3 mg Tablet
3 mg PO HS
Artificial Tears (PF) 0.1-0.3 % Dropperette
2 drp BOTH EYES DAILY
acetaminophen 325 mg tablet
650 mg PO Q4HPRN PRN (Reason: pain/temp>100.4)
midodrine 5 mg tablet
15 mg PO TID@0800,1200,1700
Rx Instructions:
03/11/25: Hold if SBP>/=130
pantoprazole 20 mg tablet,delayed release (DR/EC)
20 mg PO DAILY
finasteride 5 mg tablet
5 mg PO DAILY
Tussin DM 5-50 mg/5 mL liquid
10 ml PO Q4HPRN PRN (Reason: cough)
warfarin 5 mg tablet
5 mg PO QPM
Discontinued
doxycycline hyclate 100 mg capsule
100 mg PO BID
Rx Instructions:
03/11/25: initiated 03/04/25 for 10 days
Discharge Orders:
Discharge Patient (As Directed); Ordered 03/18/25
Ordered By: Shaye Ennis
Discharge Date and Time
Discharge Date/Time: 03/18/25 18:08
Print Language: CAPE VERDEAN
[2025-03-19 01:05] LABS: MuSK IgG Ab CBA IFA, Serum <1:10 (<1:10)
== END 2025-03-18 18:08 | disposition hospice, home (50) | DRG 291 ==
LOC: 4 EAST ACU 16:06
PROVIDERS: Physician Assistant; Radiology Diagnostic Radiology; Student in an Organized Health Care Education/Training Program; ADMITTING PHYSICIAN Internal Medicine; ATTENDING PHYSICIAN Family Medicine; CONSULT PHYSICIAN Internal Medicine Critical Care Medicine; CONSULT PHYSICIAN Psychiatry & Neurology Neurology; EMERGENCY PHYSICIAN Emergency Medicine; FAMILY PHYSICIAN Nurse Practitioner Family; OTHER PHYSICIAN Internal Medicine Cardiovascular Disease
PROC: 0W9B3ZZ Drainage of Left Pleural Cavity, Percutaneous Approach (ICD-10-PCS; 2025-03-11)
DX: I11.0 Hypertensive heart disease with heart failure (principal); I50.33 Acute on chronic diastolic (congestive) heart failure; E87.3 Alkalosis; I48.21 Permanent atrial fibrillation; J91.8 Pleural effusion in other conditions classified elsewhere; G70.00 Myasthenia gravis without (acute) exacerbation; R13.10 Dysphagia, unspecified; J44.9 Chronic obstructive pulmonary disease, unspecified; R79.1 Abnormal coagulation profile; I16.0 Hypertensive urgency; Z66 Do not resuscitate; I27.20 Pulmonary hypertension, unspecified; D64.9 Anemia, unspecified; D72.829 Elevated white blood cell count, unspecified; F03.90 Unspecified dementia, unspecified severity, without behavioral disturbance, psychotic disturbance, mood disturbance, and anxiety; E05.90 Thyrotoxicosis, unspecified without thyrotoxic crisis or storm; E78.00 Pure hypercholesterolemia, unspecified; Z51.5 Encounter for palliative care; Z79.01 Long term (current) use of anticoagulants; Z79.899 Other long term (current) drug therapy; Z86.73 Personal history of transient ischemic attack (TIA), and cerebral infarction without residual deficits; Z91.81 History of falling
CPT/HCPCS: 88305; 93308; 32555; 70450; 71045; 71046; 71260; 74230; 80048; 80053; 80061; 81003; 82042; 82607; 82728; 82746; 82805; 82945; 83540; 83550; 83615; 83735; 83880; 83986; 84157; 84439; 84443; 84484; 85025; 85027; 85610; 85730; 86041; 86366; 87015; 87070; 87205; 88112; 89051; 92526; 92610; 92611; 93005; 93321; 93325; 96374; 97110; 97163; 97167; 97530; 97535; 99285; J2916; Q0138; Q9967